=== PATIENT | female | born 1950 | race Caucasian/White ===

== ENCOUNTER → 2016-10-17 | Outpatient (CLI) | payer OTHER ==
[~2016-10-17] MED LIST: ACYC-56 PO; ASPI81TA28 PO; ATV5X PO; CHOL2000 PO; HYDR-5688 PO; IBUP600T44 PO; LEVAAER2 INH; LEVO125T5 PO; MECL1TAB42 PO; MOME50SP5; MVC20 PO; NYSCR30 TOP; OMEP40CA41 PO; ONDA4TAB10 PO; SCPTP EXT; TPRSR/25 PO; TRC145 PO; [UNRECOGNIZED DRUG - CODE] PO
[2016-10-17 13:50] LABS: ALT/SGPT 35 U/L (12-78); BLOOD UREA NITROGEN 24 mg/dl (7-18); BUN/CREATININE RATIO 25.6 (10-20); CALCIUM 9.4 mg/dl (8.5-10.1); CARBON DIOXIDE 26 mmol/L (21-32); CHLORIDE 109 mmol/L (98-107); CREATININE 0.94 mg/dl (0.60-1.20); GLUCOSE 99 mg/dl (70-99); POTASSIUM 3.8 mmol/L (3.5-5.1); SODIUM 143 mmol/L (136-145)
[2016-10-17 14:00] LABS: CHOLESTEROL 187 mg/dl (0-200); CHOLESTEROL/HDL RATIO 3.6; HDL CHOLESTEROL 52 mg/dl; LDL CHOLESTEROL CALCULATED 105 mg/dl; THYROID STIMULATING HORMONE 0.242 uIu/ml (0.300-4.500); TRIGLYCERIDES 149 mg/dl (0-150); VERY LOW DENSITY LIPOPROT CALC 30 mg/dl
== END | disposition home or self-care (01) ==
LOC: C.LAB 11:33
PROVIDERS: ATTEND Family Medicine
DX: E78.1 Pure hyperglyceridemia (principal); E78.5 Hyperlipidemia, unspecified; E03.9 Hypothyroidism, unspecified

== ENCOUNTER → 2016-10-17 | Outpatient (CLI) | payer OTHER | END | disposition home or self-care (01) | LOC: C.PATHSPEC 17:51 | PROVIDERS: ATTEND Family Medicine | DX: L82.1 Other seborrheic keratosis (principal); B07.9 Viral wart, unspecified ==

== ENCOUNTER → 2016-10-24 | Outpatient (CLI) | payer OTHER | END | disposition home or self-care (01) | LOC: C.LABSPEC 16:14 | PROVIDERS: ATTEND Dermatology | DX: L08.9 Local infection of the skin and subcutaneous tissue, unspecified (principal) ==

== ENCOUNTER → 2016-11-11 | Outpatient (CLI) | payer OTHER ==
--- NOTE | 2016-12-01 06:53 | CODING QUERY NO DIAGNOSIS ---
TREATMENT RENDERED WITHOUT A DIAGNOSIS To promote full compliance with coding requirements relating to patient care, physician participation is requested in all cases of certified medical coder uncertainty. Please assist us with providing a diagnosis/symptom for the test(s) below: A diagnosis/symptom was not documented on your Order. A valid diagnosis/symptom is required to bill all insurances. Please remember that we are unable to code a diagnosis of rule out, probable, possible, questionable, or suspected. Tests that require a diagnosis: * RIGHT EAR SHAVE BIOPSY DIAGNOSIS: Provider Signature: Date: Thank you Sierra Durham [employer] Once completed, please kindly fax back to [phone] For questions please call [phone]
== END | disposition home or self-care (01) ==
LOC: C.PATHSPEC 15:06
PROVIDERS: ATTEND Dermatology
DX: Z01.89 Encounter for other specified special examinations (principal)

== ENCOUNTER → 2017-01-16 | Outpatient (CLI) | payer OTHER ==
[~2017-01-16] MED LIST changes: -ACYC-56 PO; +ACYC1CAP9 PO; +LEVO125T4 PO; -LEVO125T5 PO
--- NOTE | 2017-01-17 13:31 | MAMMOGRAPHY REPORT ---
BILATERAL DIGITAL SCREENING MAMMOGRAM WITH CAD: 01/16/2017 CLINICAL HISTORY: Routine screening. TECHNIQUE: Current study was also evaluated with a Computer Aided Detection (CAD) system. Bilateral CC and MLO views were obtained. COMPARISON: Comparison is made to exams dated: 01/12/2016 mammogram, 01/07/2014 mammogram, 01/08/2015 m ammogram, 01/04/2013 mammogram, 01/03/2012 mammogram, and 04/26/2010 mammogram - [facility] enter. BREAST COMPOSITION: The tissue of both breasts is heterogeneously dense, which may obscure small mas ses. FINDINGS: No suspicious masses, calcifications, or areas of architectural distortion are noted in ei ther breast. There has been no significant interval change compared to prior exams. Scattered bilater al benign-appearing calcifications are not significantly changed. Asymmetry in the right superior br east middle depth on the MLO view is similar to multiple prior exams including the 2009 exam, and con sidered benign given long-term stability. IMPRESSION: ACR BI-RADS CATEGORY 2: BENIGN There is no mammographic evidence of malignancy. A 1 year screening mammogram is recommended. The pa tient will receive written notification of the results. Approximately 10% of breast cancers are not detected with mammography. A negative mammographic report should not delay biopsy if a clinically suggestive mass is present. Caitlyn Guerra M.D. /:01/16/2017 16:21:37 Needle Loom Setter: Edvin COATES)([place]), [facility] letter sent: Normal 1/2 BI-RADS Code: ACR BI-RADS Category 2: Benign
== END | disposition home or self-care (01) ==
LOC: C.MAMM 13:28
PROVIDERS: ATTEND Family Medicine
DX: Z12.31 Encounter for screening mammogram for malignant neoplasm of breast (principal)

== ENCOUNTER → 2017-01-26 | Outpatient (CLI) | payer OTHER | END | disposition home or self-care (01) | LOC: C.LAB 11:27 | PROVIDERS: ATTEND Family Medicine | DX: E03.9 Hypothyroidism, unspecified (principal) ==

== ENCOUNTER → 2017-04-03 | Outpatient (CLI) | payer OTHER ==
[2017-04-03 10:52] LABS: ALT/SGPT 29 U/L (12-78); BLOOD UREA NITROGEN 25 mg/dl (7-18); BUN/CREATININE RATIO 22.4 (10-20); CARBON DIOXIDE 24 mmol/L (21-32); CHLORIDE 110 mmol/L (98-107); CHOLESTEROL 170 mg/dl (0-200); GLUCOSE 106 mg/dl (70-99); POTASSIUM 4.2 mmol/L (3.5-5.1); SODIUM 141 mmol/L (136-145)
[2017-04-03 10:55] LABS: CHOLESTEROL/HDL RATIO 3.2; HDL CHOLESTEROL 53 mg/dl; LDL CHOLESTEROL CALCULATED 95 mg/dl; TRIGLYCERIDES 111 mg/dl (0-150); VERY LOW DENSITY LIPOPROT CALC 22 mg/dl
== END | disposition home or self-care (01) ==
LOC: C.LAB1850 09:23
PROVIDERS: ATTEND Family Medicine
DX: E78.1 Pure hyperglyceridemia (principal); R73.03 Prediabetes

== ENCOUNTER → 2017-11-16 | Outpatient (CLI) | payer BC, OTHER ==
[~2017-11-16] MED LIST changes: +ACYC-56 PO; -ACYC1CAP9 PO; -LEVO125T4 PO; +LEVO125T5 PO
== END | disposition home or self-care (01) ==
LOC: C.LAB 12:02
PROVIDERS: ATTEND Family Medicine Hospice and Palliative Medicine
DX: Z00.00 Encounter for general adult medical examination without abnormal findings (principal); E03.9 Hypothyroidism, unspecified

== ENCOUNTER → 2018-01-22 | Outpatient (CLI) | payer OTHER, BC ==
--- NOTE | 2018-01-22 15:42 | MAMMOGRAPHY REPORT ---
BILATERAL DIGITAL SCREENING MAMMOGRAM TOMOSYNTHESIS WITH CAD: 01/22/2018 CLINICAL HISTORY: Routine screening. TECHNIQUE: The study was acquired using full field digital technology and interpreted from soft copy. Breast tomosynthesis in addition to standard 2D mammography was performed. Current study was also ev aluated with a Computer Aided Detection (CAD) system. COMPARISON: Comparison is made to exams dated: 01/16/2017 mammogram, 01/12/2016 mammogram, 01/08/2015 m ammogram, 01/07/2014 mammogram, 01/04/2013 mammogram, and 01/03/2012 mammogram - [facility] enter. BREAST COMPOSITION: The tissue of both breasts is heterogeneously dense, which may obscure small mass es. FINDINGS: The parenchymal pattern is similar to prior mammograms. There are mild to moderate vascular calcific ations in the breasts. A few scattered benign rim calcifications as well. No developing mass, archi tectural distortion or cluster of suspicious microcalcifications is seen in either breast. IMPRESSION: ACR BI-RADS CATEGORY 2: BENIGN There is no mammographic evidence of malignancy. A 1 year screening mammogram is recommended.( 019) The patient will receive written notification of the results. Some breast cancers are not detected with mammography. A negative mammographic report should not shawn y biopsy if a clinically suggestive mass is present. Shikha Marks M.D. ay/:01/22/2018 15:22:34 Lease Administration Supervisor: RT Kyleigh(Brittaney)([place]), [facility] letter sent: Normal 1/2 BI-RADS Code: ACR BI-RADS Category 2: Benign
== END | disposition home or self-care (01) ==
LOC: C.MAMM 10:12
PROVIDERS: ATTEND Family Medicine
DX: Z12.31 Encounter for screening mammogram for malignant neoplasm of breast (principal)

== ENCOUNTER 2022-10-21 15:35 | Inpatient (IN) ==
--- NOTE | 2022-10-21 16:08 | Emergency Department Note ---
ED Provider Note History of Present Illness Chief Complaint: Flank Pain Stated Complaint: PAIN LOWER BACK,KIDNEY STONES Time Seen by Provider: 10/21/22 16:07 This is a 72-year-old female who presents to the emergency department with lower back pain. This initially began about 1 week ago and is progressively getting worse. She describes the pain as in the center and on both sides of the lower back. It is relatively constant in nature but exacerbated anytime she changes position. It does not radiate anywhere. She attributes this to possibly taking care of her grandson who has cerebral palsy, has been bending and lifting him a lot lately. It may have gotten worse about 3 days when she accidentally tripped and fell and landed on her left side. She did not hit her head or lose consciousness with that fall. Did not seem to injure anything else. Today she visited her chiropractor because the pain was worsening and her chiro practor "worked on her" for quite some time which seemed to make the pain worse. She tried taking some Tylenol for her symptoms without any relief. She is unable to take any ibuprofen due to apixaban use. She was a little concerned because her urine has been slightly dark intermittently over the past few days. This seems to improve when she drinks enough fluids. Not accompanied by any dysuria or gross hematuria She denies any chest pain, shortness of breath, abdominal pain, nausea, vomiting, numbness tingling or weakness in her lower extremities, saddle anesthesia, fever, chills, urinary retention, or loss of bowel or bladder function. No significant history of chronic back pain. Does have a history of kidney stones Home Medications Medication Instructions Recorded Confirmed Type docusate sodium 50 mg capsule 50 mg PO DAILY 07/16/19 10/21/22 History (Colace Clear) polyethylene glycol 3350 17 gram 17 gm PO DAILY PRN Constipation 07/16/19 10/21/22 History oral powder packet (Miralax) cyclobenzaprine 5 mg tablet 5 mg PO TID PRN Muscle Spasm #30 07/20/20 10/21/22 Rx tabs acyclovir 200 mg capsule 200 mg PO 5XD PRN OUTBREAKS #30 01/14/21 10/21/22 Rx caps calcium carbonate 600 mg calcium 600 mg PO BID 04/15/21 10/21/22 History (1,500 mg) tablet (Calcium) cholecalciferol (vitamin D3) 10 10 mcg PO BID 04/15/21 10/21/22 History mcg (400 unit) capsule levalbuterol tartrate 45 See Rx Instructions inhalation 07/27/21 10/21/22 Rx mcg/actuation aerosol inhaler .COMPLEX PRN shortness of breath (Xopenex HFA) or wheezing #15 grams fluticasone propionate 50 2 spray intranasal DAILY #48 grams 01/12/22 10/21/22 Rx mcg/actuation nasal spray,suspension meclizine 25 mg tablet 25 mg PO Q6H PRN Dizziness #90 tabs 03/01/22 10/21/22 Rx ondansetron 4 mg disintegrating 4 - 8 mg translingual BID PRN 03/01/22 10/21/22 Rx tablet nausea and vomiting #90 tabs apixaban 5 mg tablet (Eliquis) 5 mg PO BID #60 tabs 08/22/22 10/21/22 Rx metoprolol succinate 25 mg 25 mg PO HS #90 tabs 08/22/22 10/21/22 Rx tablet,extended release 24 hr olopatadine 0.1 % eye drops 1 drp ophthalmic (eye) DAILY #5 mL 09/08/22 10/21/22 Rx atorvastatin 80 mg tablet 80 mg PO HS #90 tabs 10/03/22 10/21/22 Rx omeprazole 40 mg capsule,delayed 40 mg PO QAM #90 caps 10/14/22 10/21/22 Rx release lorazepam 0.5 mg tablet 0.5 mg PO TID PRN anxiety #90 tabs 10/19/22 10/21/22 Rx diclofenac sodium 1 % topical gel 4 g topical QID PRN Pain 10/21/22 10/21/22 History levothyroxine 100 mcg tablet 100 mcg PO DAILYBB 10/21/22 10/21/22 History nystatin 100,000 unit/gram topical 1 applic topical BID PRN ABD FOLDS 10/21/22 10/21/22 History cream NEEDED Allergies Allergy/AdvReac Type Severity Reaction Status Date / Time bee venom protein (honey bee) Allergy Severe THROAT Verified 10/21/22 21:23 CLOSES/HIVES Iodinated Contrast Media Allergy Intermediate HIVES Verified 10/21/22 21:23 aspirin AdvReac Unknown CONTRAINDICATED Verified 10/21/22 21:23 WITH BLOOD THINNERS ibuprofen AdvReac Unknown CONTRAINDICATED Verified 10/21/22 21:23 WITH BLOOD THINNERS Past Med/Surg History Medical History A-fib Adverse anesthesia outcome Hard time waking up Anxiety Bee sting reaction Chest pain (05/18/14) Cholelithiasis Conductive hearing loss of both ears Gastroesophageal reflux disease (10/29/12) History of cerebrovascular accident Hyperlipidemia (10/29/12) Hypothyroidism (10/29/12) Laryngitis, chronic Learning disability Left knee pain Pharyngitis, chronic Post traumatic stress disorder (PTSD) Prediabetes Stroke SVT (supraventricular tachycardia) Surgical History History of colonoscopy History of hysterectomy History of surgery Vaginal Reconstruction - 2012 History of tonsillectomy No pertinent past surgical history Tympanic tube insertion 2019. Family History Father Colorectal cancer Coronary heart disease Prostate cancer Cancer Aunt Diabetes Mother Myocardial infarction Coronary heart disease Stroke Daughter Crohn's disease Asthma Son Allergic rhinitis Family/Other Anemia Child Other Family history non-contributory Denies family history of Ovarian cancer Breast cancer Social History Smoking Status: Former smoker Smoking End Date: 30 years ago; Second Hand Exposure: No; Do You Dip or Chew Tobacco: No; Hx Alcohol Use: No Hx Substance Use: No Preferred Language: Tajik Communication Ability: Effective Communication Ability Comment: poor reading ability Visual Impairment: No Limitations Hearing Ability: Normal Director [employer] Required: No Beliefs That Will Affect Care: None marital status: Current Living Situation: Spouse current occupational status: retired How many Children do You have: 3 Other Information That Helps Us Care for You: No Feels Safe at Home: Yes Safety Concerns: Feels Safe At This Time Childhood Exposure to Second-Hand Smoke: Yes Diet: regular caffeine: Yes (Soda - occasional) during the past year weight has: remained stable Dental Care, Regularly: No Physical Activity Frequency: Does not Exercise Seatbelt Use: always Sunscreen Use: Yes Assistive Devices: Glasses Physical Exam Vital Signs Vital Signs - 24 hr 10/21/22 15:45 10/21/22 16:01 10/21/22 20:05 Temperature 97.5 F L Temperature Source Temporal Artery Scan Pulse Rate 74 75 76 Respiratory Rate 18 Respiratory Effort / Characteristics Non-Labored Spontaneous Respiratory Depth Normal Blood Pressure 142/80 H Blood Pressure Mean 100 Blood Pressure Position Sitting Pulse Oximetry 97 Oxygen Delivery Method Room Air Sepsis Recent Fever Within 48 Hours No Sepsis New/Unexplained Change in Mental Status No Sepsis Action Taken by Nursing No Action Required CONSTITUTIONAL: Well developed, well nourished, mildly uncomfortable appearing, otherwise resting comfortably on stretcher HEAD: Normocephalic, atraumatic. NECK: Full active range of motion. No spinous process tenderness RESPIRATORY: Breathing unlabored and symmetric. Lungs clear to auscultation bilaterally. No wheeze, rales, or rhonchi. CARDIOVASCULAR: Regular rate and rhythm. No murmurs, rubs, or gallops. DP pulses 2+ bilaterally. ABDOMEN: Normal bowel sounds. Soft, nontender, no peritonitis. No masses. MUSCULOSKELETAL: Moves bilateral upper extremities at all joints without pain or difficulty. Pelvis stable, nontender. Able to actively perform a straight leg raise bilaterally, less so on the left than the right which is baseline per patient. Back exam: No obvious deformities or skin color changes. There is no tenderness in the thoracic spine. There is midline tenderness in the lumbar spine as well as bilateral lumbar paraspinal musculature. There is pain elicited in the low back with any changes in position. Moves all toes bilaterally. SKIN: [place], warm, dry. NEUROLOGIC: Awake, alert, oriented. Gaze is conjugate. Face symmetric. Strength 5+ in bilateral lower extremities with plantarflexion, dorsiflexion, EHL extension. No sensory deficits in bilateral toes. Patellar reflexes 2+ bilaterally.. Course Administered Medications Acetaminophen (Acetaminophen 500 Mg Tab) 1,000 mg PO Q8 [facility] Stop: 11/20/22 21:59 Last Admin: 10/21/22 22:48 Dose: 1,000 mg Documented By: P Apixaban (Apixaban 5 Mg Tablet) 5 mg PO BID EMA Stop: 11/20/22 21:47 Last Admin: 10/21/22 22:32 Dose: Not Given Documented By: P Atorvastatin Calcium (Atorvastatin 40 Mg Tab) 80 mg PO HS [facility] Stop: 11/20/22 21:47 Last Admin: 10/21/22 22:48 Dose: 80 mg Documented By: SHARRI Diclofenac Sodium (Diclofenac Sod 1% Gel 100 Gm Tube) 4 gm EXT QID EMA; Protocol Stop: 11/20/22 21:47 Last Admin: 10/21/22 22:48 Dose: 4 gm Documented By: SHARRI Sodium Chloride (Nss 1000ml) 500 mls @ 80 mls/hr IV .Q6H15M EMA Stop: 10/22/22 04:59 Last Admin: 10/21/22 22:47 Dose: 80 mls/hr Documented By: SHARRI Metoprolol Succinate (Metoprolol Succ 25mg Ext Rel Tab) 25 mg PO HS EMA Stop: 11/20/22 21:47 Last Admin: 10/21/22 22:32 Dose: Not Given Documented By: SHARRI Mismauraaneous (Remove Lidoderm Patch) 1 each N/A DAILY@2100 EMA Stop: 11/20/22 23:58 Last Admin: 10/21/22 22:49 Dose: 1 each Documented By: SHARRI Ondansetron HCl (Ondansetron Inj 2 Mg/Ml 2 Ml Vial) 4 mg IV Q6H PRN PRN Reason: Nausea And Vomiting Stop: 11/20/22 20:50 Last Admin: 10/21/22 21:07 Dose: 4 mg Documented By: KRYSTIN Discontinued Medications Acetaminophen (Acetaminophen 325 Mg Tab) 650 mg PO NOW STA Stop: 10/21/22 16:25 Last Admin: 10/21/22 16:35 Dose: 650 mg Documented By: [id number] Sodium Chloride (Nss) 500 mls @ 999 mls/hr IV .Q31M ONE Stop: 10/21/22 17:59 Last Infusion: 10/21/22 19:06 Dose: 0 mls/hr Documented By: Admin: 10/21/22 17:36 Dose: 999 mls/hr Documented By: [id number] Lidocaine (Lidocaine 5% 1 Patch) 2 patch TD NOW STA Stop: 10/21/22 16:25 Last Admin: 10/21/22 16:36 Dose: 2 patch Documented By: [id number] Miscellaneous (Remove Lidoderm Patch) 1 each N/A DAILY@2100 EMA Stop: 11/20/22 20:59 Last Admin: 10/21/22 20:43 Dose: Not Given Documented By: KRYSTIN Morphine Sulfate (Morphine Sulfate 4 Mg/Ml 1 Ml Carp\\Vial) 4 mg IV NOW STA Stop: 10/21/22 18:19 Last Admin: 10/21/22 18:28 Dose: 4 mg Documented By: DANNY Potassium Chloride (Potassium Chloride Crtab 20 Meq Tabcr) 40 meq PO NOW STA Stop: 10/21/22 17:52 Last Admin: 10/21/22 19:05 Dose: 40 meq Documented By: KRYSTIN Medical Decision Making Differential Diagnosis Muscle strain, myofascial low back pain, renal colic, radicular pain, cauda equina syndrome, transverse myelitis, hematoma, vascular rupture or aneurysm, fracture, dislocation, subluxation, vascular, malignancy, UTI, pyelonephritis, Medical Records Attestation: I reviewed the patient's medical records. Laboratory Data 10/21/22 Unknown 10/21/22 Unknown Lab Results 10/21/22 10/21/22 Range/Units 16:40 19:06 Urine Color Dark Yellow Urine Appearance Clear (Clear) Urine pH 5.0 (4.5-7.5) Ur Specific [place] 1.022 (1.000-1.030) Urine Protein Negative (Negative) Urine Glucose (UA) Negative (Negative) Urine Ketones Trace H (Negative) Urine Blood Negative (Negative) Urine Nitrite Negative (Negative) Urine Bilirubin Negative (Negative) Urine Urobilinogen Negative (Negative) Ur Leukocyte Esterase Trace H (Negative) Urine WBC (Auto) 1-5 (0-5) /hpf Urine RBC (Auto) 5-10 H (0-4) /hpf U Hyaline Cast (Auto) 5-10 H (0-5) /lpf U Epithel Cells (Auto) >30 H (0-5) /lpf Urine Bacteria (Auto) Negative (Negative) SARS-CoV-2, RNA, NAAT NEGATIVE (NEGATIVE) Imaging Data Radiologist's Impression: Abdomen/Pelvis CT 10/21/22 16:24 CT SCAN OF THE ABDOMEN AND PELVIS WITHOUT IV CONTRAST CLINICAL HISTORY: Low back pain. Recent falls. COMPARISON STUDY: Abdominal CT dated 11/25/2020. TECHNIQUE: CT scan of the abdomen and pelvis is performed from the lung bases to the proximal femora. Images are reviewed in the axial, sagittal, and coronal planes. IV contrast was not administered for this examination. A dose lowering technique was utilized adhering to the principles of ALARA. CT DOSE: 398.60 mGy.cm FINDINGS: Lung bases: The heart is normal in size and without pericardial effusion. The lung bases are clear noting bibasilar scarring/atelectasis. There is a tiny hiatal hernia. Liver: The unenhanced liver is normal in size, contour, and attenuation. There is no intrahepatic biliary ductal dilatation. Gallbladder: There are calcified gallstones with no CT evidence of acute cholecystitis. Spleen: Normal in size and attenuation. Pancreas: Unremarkable. Adrenal glands: Unremarkable. Kidneys: The unenhanced kidneys are normal in size and without hydronephrosis. There is a 4 mm nonobstructing calculus in the right lower pole. No left renal calculi are identified and there is no ureteral stone. There is no evidence of contour deforming renal mass lesion. Abdominal vasculature: The abdominal aorta is normal in course and caliber. Bowel: There is no bowel obstruction. The appendix is well-visualized and normal. Peritoneum: There is no intraperitoneal free air or abdominal ascites. There is a fat-containing umbilical hernia. Lymphadenopathy: None. Pelvic viscera: The bladder is normal as visualized. The uterus is surgically absent. No adnexal lesion is seen. Skeletal structures: The skeletal structures are osteopenic. There is a minimal acute appearing superior endplate compression fracture of L1 with faint paravertebral edema. No retropulsed fragments identified. No lytic or blastic lesions are seen. IMPRESSION: 1. There is a minimal acute appearing superior endplate compression fracture of L1. Correlate for point tenderness. 2. No acute infectious or inflammatory findings are identified in the abdomen or pelvis. 3. Cholelithiasis. 4. Right-sided nephrolithiasis. 5. Additional findings as above. ACT 112: Negative or not required by law. Electronically signed by: Danie Salazar M.D. 10/21/2022 4:56 PM MDM Narrative This is a 72-year-old female who presents to the emergency department with 1 week of progressive back pain as well as a mechanical fall that occurred 3 days ago. Symptoms worsened after seeing her chiropractor today. See above for further details. On exam she does appear to be in pain especially when changing positions. When she is at rest she is improved. There is tenderness in the midline lumbar spine as well as the paraspinal musculature in the lumbar region. She is neurovascularly intact with strong DP pulses as well as 2+ patellar reflexes. Patient was initially treated with Tylenol and 2 Lidoderm patches. This was not sufficient at controlling her pain so she was given a dose of morphine. IV fluids administered. Labs show no leukocytosis. Mild hypokalemia at 3.2, repleted with 40 mEq of potassium chloride. Nonspecific elevation of AST at 44 which could be related to bone. Urine with no evidence of infection, but it does appear to be infected. Given the patient's age, worsening symptoms, history of stones, and on blood th inners, a CT of the abdomen and pelvis was obtained without contrast given her history of allergy to contrast. This demonstrated a minimal acute appearing superior endplate compression fracture of L1. This is quite possibly the source of her symptoms. I attempted to ambulate the patient however she was still in a severe amount of pain. Given her fall risk and persistent pain, hesitant to discharge home with prescription pain medication. I discussed the case with the resident with the hospitalist group who agrees to admit the patient. Case was discussed with ED attending Dr. Cabrera who is agreeable with this plan. Impression Closed compression fracture of body of L1 vertebra Discharge Plan Visit Data Chief Complaint: Flank Pain Stated Complaint: PAIN LOWER BACK,KIDNEY STONES ED Provider: Brody Cabrera ED Midlevel Provider: Miky Mortensen Discharge Problem: Closed compression fracture of body of L1 vertebra Patient Disposition: Admitted As Inpatient Condition: Fair Discharge Instructions Interventions: ED Discharge Assessment Last Done: 10/21/22 21:31
[2022-10-21] MEDS ORDERED: LIDOCAINE 5% 1 PATCH TD STA (16:24)
[2022-10-21] MEDS ORDERED: ACETAMINOPHEN 325 MG TAB PO STA (16:24)
[2022-10-21 16:44] LABS: Basophils # (auto) 0.04 K/uL (0-0.2); Basophils % (auto) 0.5 %; Eosinophils # (auto) 0.21 K/uL (0-0.50); Eosinophils % (auto) 2.7 %; Hematocrit (blood only) 36.7 % (37.0-47.0); Immature Granulocytes # (auto) 0.03 K/uL (0.01-0.20); Immature Granulocytes % (auto) 0.4 %; Lymphocytes # (auto) 2.81 K/uL (1.2-3.4); Lymphocytes % (auto) 36.4 %; Mean Corpuscular Hemoglobin 33.4 pg (25.0-34.0); Mean Corpuscular Hgb Conc 35.4 g/dL (32.0-36.0); Mean Corpuscular Volume 94.3 fL (80.0-100.0); Mean Platelet Volume 9.7 fL (9.4-12.4); Monocytes # (auto) 0.67 K/uL (0.11-0.59); Monocytes % (auto) 8.7 %; Neutrophils # (auto) 3.95 K/uL (1.40-6.50); Neutrophils % (auto) 51.3 %; Platelet Count 224 K/uL (130-400); RDW Coefficient of Variation 12.7 % (11.5-14.5); RDW Standard Deviation 43.8 fL (36.4-46.3); Red Blood Count 3.89 M/uL (4.20-5.40); White Blood Count 7.71 K/ul (4.8-10.8)
[2022-10-21 16:48] LABS: Albumin Globulin Ratio 1.8 (0.9-2); Albumin Level 4.6 gm/dl (3.4-5.0); BUN Creatinine Ratio 16.5 (10-20); Bilirubin,Total 0.8 mg/dl (0.2-1.0); Calcium 9.7 mg/dl (8.6-10.3); Creatinine Clr Calc Pharmacy 67.3 ml/min; Est GFR (African American) 86.7 ml/min; Est GFR (Non-African American) 74.8 ml/min; Globulin 2.6 gm/dl (2.5-4.0); Potassium 3.2 mmol/L (3.5-5.1); Total Protein 7.2 gm/dl (6.0-8.3)
--- NOTE | 2022-10-21 16:58 | CT Scan Report ---
CT SCAN OF THE ABDOMEN AND PELVIS WITHOUT IV CONTRAST CLINICAL HISTORY: Low back pain. Recent falls. COMPARISON STUDY: Abdominal CT dated 11/25/2020. TECHNIQUE: CT scan of the abdomen and pelvis is performed from the lung bases to the proximal femora. Images are reviewed in the axial, sagittal, and coronal planes. IV contrast was not administered for this examination. A dose lowering technique was utilized adhering to the principles of ALARA. CT DOSE: 398.60 mGy.cm FINDINGS: Lung bases: The heart is normal in size and without pericardial effusion. The lung bases are clear no ting bibasilar scarring/atelectasis. There is a tiny hiatal hernia. Liver: The unenhanced liver is normal in size, contour, and attenuation. There is no intrahepatic jeffery iary ductal dilatation. Gallbladder: There are calcified gallstones with no CT evidence of acute cholecystitis. Spleen: Normal in size and attenuation. Pancreas: Unremarkable. Adrenal glands: Unremarkable. Kidneys: The unenhanced kidneys are normal in size and without hydronephrosis. There is a 4 mm nonobs tructing calculus in the right lower pole. No left renal calculi are identified and there is no urete ral stone. There is no evidence of contour deforming renal mass lesion. Abdominal vasculature: The abdominal aorta is normal in course and caliber. Bowel: There is no bowel obstruction. The appendix is well-visualized and normal. Peritoneum: There is no intraperitoneal free air or abdominal ascites. There is a fat-containing umbi lical hernia. Lymphadenopathy: None. Pelvic viscera: The bladder is normal as visualized. The uterus is surgically absent. No adnexal lesi on is seen. Skeletal structures: The skeletal structures are osteopenic. There is a minimal acute appearing super ior endplate compression fracture of L1 with faint paravertebral edema. No retropulsed fragments iden tified. No lytic or blastic lesions are seen. IMPRESSION: 1. There is a minimal acute appearing superior endplate compression fracture of L1. Correlate for poi nt tenderness. 2. No acute infectious or inflammatory findings are identified in the abdomen or pelvis. 3. Cholelithiasis. 4. Right-sided nephrolithiasis. 5. Additional findings as above. ACT 112: Negative or not required by law. Electronically signed by: Danie Salazar M.D. 10/21/2022 4:56 PM
[2022-10-21] MEDS ORDERED: SODIUM CHLORIDE 0.9% 500 ML IV ONE (17:29)
[2022-10-21 17:33] LABS: Appearance Urine Clear (Clear); Bacteria Urine Automated Negative (Negative); Bilirubin Urine Negative (Negative); Blood Urine Negative (Negative); Color Urine Dark Yellow; Epithelial Cell Urine Auto >30 /lpf (0-5); Glucose Urine UA Negative (Negative); Ketones Urine Trace (Negative); Leukocyte Esterase Urine Trace (Negative); Nitrite Urine Negative (Negative); Protein Urine Negative (Negative); Specific Gravity Urine 1.022 (1.000-1.030); Urobilinogen Urine Negative (Negative)
[2022-10-21] MEDS ORDERED: POTASSIUM CHLORIDE CRTAB 20 MEQ TABCR PO STA (17:51)
[2022-10-21] MEDS ORDERED: MoRPHine SULFATE 4 MG/ML 1 ML CARP\\VIAL IV STA (18:18)
--- NOTE | 2022-10-21 20:18 | History & Physical Report ---
Date of Service October 21, 2022 Assessment & Plan (1) Lower back pain: Plan: -CTAP with minimal acute superior endplate compression L1 fracture -Pain control- Tylenol 1000 mg q8h, lidocaine patch, morphine PRN, Voltaren PRN, Flexeril PRN -Orthopedics consulted -PT/OT evaluations ordered -Fall precautions -Does take vitamin D supplementation as outpatient (2) A-fib: Plan: -Currently in sinus rhythm, rate-controlled -Continue metoprolol -Continue apixaban (3) Prediabetes: Plan: -A1C 6.0% in 07/2022 -Monitor BSGs (4) Hypothyroidism: Plan: -Continue levothyroxine (5) Hyperlipidemia: Plan: -Continue atorvastatin (6) Gastroesophageal reflux disease: Plan: -Continue omeprazole (7) Constipation: Plan: -Bowel regimen ordered (8) Kidney stone: Plan: -Nephrolithiasis noted on CTAP, no obstruction at present Plan FENGI: Heart-healthy Code status: Full DVT ppx: Eliquis Isolation: None Dispo: Medical/surgical History of Present Illness Chief Complaint: Low back pain Primary Care Provider: Marianne Hurd MD Pt is 72 yo F with PMH of pAF, anxiety, nephrolithiasis, HLD, hypothyroidism, GERD presenting with low back pain. Pt states for past few days she has been trying to help her 180 lb grandson who has cerebral palsy with ADLs. This involves lifting and carrying him which she reports has caused significant back strain. Earlier today she fell to the ground and landed on her L side, did not strike her head. Her lower back pain has been severe and limiting her movement. She was brought to ER afterward. Pt arrived to ER hemodynamically stable. Initial evaluation with unremarkable CBC, K 3.2, CTAP w/ minimal acute L1 compression fracture, cholelithiasis and R nephrolithiasis. Pt given KCl, Tylenol, morphine 4 mg, lidocaine and NSS 500 cc bolus in ER. At present, pt reports the pain medication has helped reduce her pain slightly. She still reports lower back pain but denies any numbness, weakness, fever, dyspnea, chest pain. Allergies Allergy/AdvReac Type Severity Reaction Status Date / Time bee venom protein (honey bee) Allergy Severe THROAT Verified 10/21/22 21:23 CLOSES/HIVES Iodinated Contrast Media Allergy Intermediate HIVES Verified 10/21/22 21:23 aspirin AdvReac Unknown CONTRAINDICATED Verified 10/21/22 21:23 WITH BLOOD THINNERS ibuprofen AdvReac Unknown CONTRAINDICATED Verified 10/21/22 21:23 WITH BLOOD THINNERS Home Medications Medication Instructions Recorded Confirmed Type docusate sodium 50 mg capsule 50 mg PO DAILY 07/16/19 10/21/22 History (Colace Clear) polyethylene glycol 3350 17 gram 17 gm PO DAILY PRN Constipation 07/16/19 10/21/22 History oral powder packet (Miralax) cyclobenzaprine 5 mg tablet 5 mg PO TID PRN Muscle Spasm #30 07/20/20 10/21/22 Rx tabs acyclovir 200 mg capsule 200 mg PO 5XD PRN OUTBREAKS #30 01/14/21 10/21/22 Rx caps calcium carbonate 600 mg calcium 600 mg PO BID 04/15/21 10/21/22 History (1,500 mg) tablet (Calcium) cholecalciferol (vitamin D3) 10 10 mcg PO BID 04/15/21 10/21/22 History mcg (400 unit) capsule levalbuterol tartrate 45 See Rx Instructions inhalation 07/27/21 10/21/22 Rx mcg/actuation aerosol inhaler .COMPLEX PRN shortness of breath (Xopenex HFA) or wheezing #15 grams fluticasone propionate 50 2 spray intranasal DAILY #48 grams 01/12/22 10/21/22 Rx mcg/actuation nasal spray,suspension meclizine 25 mg tablet 25 mg PO Q6H PRN Dizziness #90 tabs 03/01/22 10/21/22 Rx ondansetron 4 mg disintegrating 4 - 8 mg translingual BID PRN 03/01/22 10/21/22 Rx tablet nausea and vomiting #90 tabs apixaban 5 mg tablet (Eliquis) 5 mg PO BID #60 tabs 08/22/22 10/21/22 Rx metoprolol succinate 25 mg 25 mg PO HS #90 tabs 08/22/22 10/21/22 Rx tablet,extended release 24 hr olopatadine 0.1 % eye drops 1 drp ophthalmic (eye) DAILY #5 mL 09/08/22 10/21/22 Rx atorvastatin 80 mg tablet 80 mg PO HS #90 tabs 10/03/22 10/21/22 Rx omeprazole 40 mg capsule,delayed 40 mg PO QAM #90 caps 10/14/22 10/21/22 Rx release lorazepam 0.5 mg tablet 0.5 mg PO TID PRN anxiety #90 tabs 10/19/22 10/21/22 Rx diclofenac sodium 1 % topical gel 4 g topical QID PRN Pain 10/21/22 10/21/22 History levothyroxine 100 mcg tablet 100 mcg PO DAILYBB 10/21/22 10/21/22 History nystatin 100,000 unit/gram topical 1 applic topical BID PRN ABD FOLDS 10/21/22 10/21/22 History cream NEEDED Past Med/Surg History Medical History A-fib Adverse anesthesia outcome Hard time waking up Anxiety Bee sting reaction Chest pain (05/18/14) Cholelithiasis Conductive hearing loss of both ears Gastroesophageal reflux disease (10/29/12) History of cerebrovascular accident Hyperlipidemia (10/29/12) Hypothyroidism (10/29/12) Laryngitis, chronic Learning disability Left knee pain Pharyngitis, chronic Post traumatic stress disorder (PTSD) Prediabetes Stroke SVT (supraventricular tachycardia) Surgical History History of colonoscopy History of hysterectomy History of surgery Vaginal Reconstruction - 2012 History of tonsillectomy No pertinent past surgical history Tympanic tube insertion 2019. Family History Father Colorectal cancer Coronary heart disease Prostate cancer Cancer Aunt Diabetes Mother Myocardial infarction Coronary heart disease Stroke Daughter Crohn's disease Asthma Son Allergic rhinitis Family/Other Anemia Child Other Family history non-contributory Denies family history of Ovarian cancer Breast cancer Social History Smoking Status: Former smoker Smoking End Date: 30 years ago; Second Hand Exposure: No; Do You Dip or Chew Tobacco: No; Hx Alcohol Use: No Hx Substance Use: No Preferred Language: Beninese Communication Ability: Effective Communication Ability Comment: poor reading ability Visual Impairment: No Limitations Hearing Ability: Normal Artificial Flowers Dyer Required: No Beliefs That Will Affect Care: None marital status: Current Living Situation: Spouse current occupational status: retired How many Children do You have: 3 Other Information That Helps Us Care for You: No Feels Safe at Home: Yes Safety Concerns: Feels Safe At This Time Childhood Exposure to Second-Hand Smoke: Yes Diet: regular caffeine: Yes (Soda - occasional) during the past year weight has: remained stable Dental Care, Regularly: No Physical Activity Frequency: Does not Exercise Seatbelt Use: always Sunscreen Use: Yes Assistive Devices: Glasses Review of Systems Review of Systems: Per HPI/Subjective Physical Exam Physical Exam: General: well-appearing, no acute distress HEENT: PERRL, EOMI, conjunctivae clear without injection, anicteric sclerae, moist mucous membranes, clear oropharynx without exudate or erythema Neck: supple, trachea midline, no thyromegaly, no JVD, no cervical lymphadenopathy CV: RRR, normal S1 and S2, no murmurs Resp: CTAB, no increased work of breathing, no crackles or wheezes Abd: Soft, nontender, nondistended, no guarding or rebound, no hepatosplenomegaly MSK: Normal bulk of all four extremities, point tenderness of back at level of L1 Neuro: AOx3, no focal motor or sensory deficits, gait not assessed Skin: no rashes or lesions, warm and dry Ext: no LE peripheral edema or erythema, capillary refill <2s in all four extremities, 2+ LE peripheral pulses b/l Results & Data Results & Data Vital Signs (Past 12 Hours) Vital Signs Temp Pulse Resp BP Pulse Ox O2 Del Method 10/21/22 20:05 76 10/21/22 16:01 75 10/21/22 15:45 36.4 C L 74 18 142/80 H 97 Room Air Supervising Physician Co-Signing Physician Notes Attending addendum: I have physically seen this patient, have supervised the medical residents activities, and agree with the H&P unless as otherwise noted. Assessment and Plan: Acute superior endplate L1 compression fracture- Pain control with Tylenol, lidocaine patch, morphine, Voltaren and Flexeril as noted PT/OT consults Consult orthopedic spine surgery Atrial fibrillation/hypertension- Continue metoprolol and apixaban Prediabetes- Placed on Accu-Cheks with NovoLog SSI Hyperlipidemia- Continue atorvastatin 80 mg daily Check a fasting lipid panel Hypothyroidism- Continue levothyroxine GERD- Change omeprazole to pantoprazole per formulary interchange Remaining orders and notations as noted Resident Activity Tracking Resident Involvement: Resident Care Provided Care Provided: Adult [facility] Medicine
[2022-10-21] MEDS: ONDANSETRON INJ 2 MG/ML 2 ML VIAL IV PRN (21:07)
[2022-10-21] MEDS ORDERED: CYCLOBENZAPRINE HCL 5 MG TAB PO PRN (21:48)
[2022-10-21] MEDS ORDERED: POLYETHYLENE (MIRALAX) 17 GM PACK PO PRN (21:48)
[2022-10-21] MEDS ORDERED: LEVALBUTEROL TARTRATE 15 GM HFA.AER.AD INH PRN (21:48)
[2022-10-21] MEDS: APIXABAN 5 MG TABLET PO SCH (22:32)
[2022-10-21] MEDS: METOPROLOL SUCC 25MG EXT REL TAB PO SCH (22:32)
[2022-10-21] MEDS ORDERED: SODIUM CHLORIDE 0.9% 1000ML 500 ML IV SCH (22:45)
[2022-10-21] MEDS: ATORVASTATIN 40 MG TAB PO SCH (22:48)
[2022-10-21] MEDS: ACETAMINOPHEN 500 MG TAB PO SCH (22:48)
[2022-10-21] MEDS: DICLOFENAC SOD 1% GEL 100 GM TUBE EXT SCH (22:48)
[2022-10-22] MEDS: MoRPHine SULFATE 2 MG/ML CARP IV PRN ×3 (02:01→21:02)
[2022-10-22] MEDS: LORazepam 0.5 MG TAB PO PRN ×2 (05:56→21:02)
[2022-10-22] MEDS: ACETAMINOPHEN 500 MG TAB PO SCH ×3 (05:56→21:06)
[2022-10-22] MEDS: LEVOTHYROXINE SODIUM 100 MCG TABLET PO SCH (05:57)
[2022-10-22 06:29] LABS: BUN Creatinine Ratio 14.8 (10-20); Calcium 8.7 mg/dl (8.6-10.3); Creatinine Clr Calc Pharmacy 96.2 ml/min; Est GFR (African American) 109.3 ml/min; Est GFR (Non-African American) 94.3 ml/min; Potassium 3.6 mmol/L (3.5-5.1)
--- NOTE | 2022-10-22 07:30 | Hospitalist Progress Note ---
Date of Service October 22, 2022 Assessment & Plan (1) Lower back pain: Plan: Lower Back Pain- Lumbosacral strain, Compression Fracture L1 -CTAP with minimal acute superior endplate compression L1 fracture, unknown age of injury -Pain control- Tylenol 1000 mg q8h, lidocaine patch, morphine PRN, Voltaren PRN, Flexeril PRN -PT/OT evaluations ordered, encourage ambulation to prevent deconditioning and worsening pain -DEXA Scan from 1+ year prior confirms osteoporosis, patient will need follow up for consideration of bisphosphonate in the future. Currently on Vitamin D supplementation as outpatient -Given patient's description of current pain distribution, greater suspicion that the pain is related to lumbosacral strain/piriformis pathology -Will give Magnesium Sulfate 4g to help address muscle spasms -Considering unknown timeframe for compression fracture, will defer orthopedics consult as surgical intervention likely not warranted at this time Atrial Fibrillation -Currently in sinus rhythm, rate-controlled -Continue metoprolol -Continue apixaban Prediabetes -A1C 6.0% in 07/2022 -Monitor BSGs Hypothyroidism -Continue levothyroxine Hyperlipidemia -Continue atorvastatin GERD -Continue omeprazole Constipation -Bowel regimen ordered Kidney Stone -Nephrolithiasis noted on CTAP, no obstruction at present FENGI: Heart-healthy Code status: Full DVT ppx: Eliquis Dispo: Medical/surgical (2) A-fib: (3) Prediabetes: (4) Hypothyroidism: (5) Hyperlipidemia: (6) Gastroesophageal reflux disease: (7) Constipation: (8) Kidney stone: Admission and Anticipated Discharge Date Admission Date: October 21, 2022 Supervising Physician Co-Signing Physician Notes I personally examined the patient and verified all [place] points of history and exam, discussed case, and agree with decision making with Dr Isabel. Back painbut lower. Not at all in her L1 region. Relates it is really purely in a lumbosacral area. Notes that prior to coming to the hospital she went to it sounds like probably her chiropractor and worked on piriformis region musculaturebut unfortunately she continued to worsen anyway. Vitals noted, in general she is awake and alert pleasant but appears uncomfortable. Breathing unlabored no accessory muscle use good effort. Musculoskeletal/osteopathic she has absolutely no spinous process tenderness, she is very tender right piriformis region musculature high tone, tender, decreased range of motionLAS, tissue texture improved some, patient tolerated well. Back painto be clear I do not believe her L1 compression fracture contributes to her pain at all. Seems to be biomechanical/driven by piriformis. Sounds like her chiropractor was working on the right area, but unfortunately patient worsened anyway, which sometimes is the case. OMT as above. Magnesium, Valium as a muscle relaxant, scheduled Tylenol, increase range of motion as possible. Somatic dysfunction of pelvic regionOMT as above L1 compression fracture/osteoporosisoutpatient management. Ronel Wright is 72 year-old female with PMH of atrial fibrillation, anxiety, nephrolithiasis, HLD, hypothyroidism, GERD presenting with low back pain. She had ongoing lower back pain for over a week- helps with ADL's of her 180lb grandson with cerebral palsy- but yesterday fell and landed on her left side. Due to the significant pain and patient on anticoagulation, decision was made for admission. 10/22: Patient seen and examined at bedside. She states she is still in a lot of pain. During encounter, patient noted 8/10 intensity of pain. She states that ambulating causes excruciating pain and sitting/laying in bed is also very painful. She states is feels like urinating "takes longer than usual" and is also a bit constipated. Denies numbness, tingling, weakness in her lower extremities. Review of Systems Review of Systems: As per HPI Physical Exam Constitutional: WD/WN, vitals as above Eyes: Anicteric sclerae ENMT: External ears and nose normal. Moist mucous membranes. Respiratory: normal respiratory effort, lungs clear to auscultation Cardiovascular: RRR, no murmur, no edema Gastrointestinal (Abdomen): Soft, nontender, nondistended. +Bowel sounds Musculoskeletal: Tenderness to palpation of lumbosacral paraspinal musculature. Skin: no rashes, warm and dry Psychiatric: A+Ox3, euthymic affect Results & Data Results & Data Vital Signs (Past 12 Hours) Vital Signs Temp Pulse Pulse Resp BP Pulse Ox O2 Del Method 10/21/22 21:52 36.4 C 65 96/59 L 92 Room Air 10/21/22 21:00 69 16 124/61 93 Room Air 10/21/22 20:05 76 Resident Activity Tracking Resident Involvement: Resident Care Provided Care Provided: Adult Hospital Medicine
[2022-10-22] MEDS: PANTOprazole 40 MG TAB PO SCH (08:34)
[2022-10-22] MEDS: APIXABAN 5 MG TABLET PO SCH ×2 (08:34→21:04)
[2022-10-22] MEDS: DOCUSATE SODIUM SYRUP 100 MG/10 ML UDC PO SCH (08:34)
[2022-10-22] MEDS: LIDOCAINE 5% 1 PATCH TD SCH (08:35)
[2022-10-22] MEDS: DICLOFENAC SOD 1% GEL 100 GM TUBE EXT SCH ×4 (08:36→21:03)
[2022-10-22] MEDS: ONDANSETRON INJ 2 MG/ML 2 ML VIAL IV PRN (11:37)
[2022-10-22] MEDS: MAGNESIUM SULFATE / D5W 1 GM/100 ML BAG IV SCH ×4 (16:21→23:20)
[2022-10-22] MEDS ORDERED: diazePAM 2 MG TABLET PO PRN (18:45)
--- NOTE | 2022-10-22 18:53 | Hospitalist Progress Note ---
Date of Service October 22, 2022 Assessment & Plan Admission and Anticipated Discharge Date Admission Date: October 21, 2022 Results & Data Results & Data Vital Signs (Past 12 Hours) Vital Signs Temp Pulse Resp BP Pulse Ox O2 Del Method 10/22/22 15:06 98.2 F 70 16 103/61 96 Room Air 10/22/22 07:26 97.9 F 64 18 125/73 96 Room Air PG Care Time/CCT Total # of Minutes Spent Total Time Spent with Patient: Total time spent is greater than 50% in coordination of care (as documented) at patient's floor/unit and/or counseling patient: Coding Level of Care Code None Diagnoses CPT Codes Musculoskeletal - Musculoskeletal: [address] Tr 1-2 Body regions ([id number])
--- NOTE | 2022-10-22 18:53 | Billing Data ---
Date of Service October 22, 2022 Coding Level of Care Code 29857 SUB INP/OBS CARE MIN
[2022-10-22] MEDS ORDERED: PANTOprazole 40 MG TAB PO PRN (21:00)
[2022-10-22] MEDS: diazePAM 5 MG TABLET PO SCH (21:02)
[2022-10-22] MEDS: METOPROLOL SUCC 25MG EXT REL TAB PO SCH (21:05)
[2022-10-22] MEDS: ATORVASTATIN 40 MG TAB PO SCH (21:05)
[2022-10-23] MEDS: ACETAMINOPHEN 500 MG TAB PO SCH ×3 (05:55→21:00)
[2022-10-23] MEDS: LEVOTHYROXINE SODIUM 100 MCG TABLET PO SCH (05:55)
--- NOTE | 2022-10-23 06:07 | Billing Data ---
Date of Service October 23, 2022 Coding Level of Care Code 24530 INT INP/OBS CARE
--- NOTE | 2022-10-23 07:32 | Hospitalist Progress Note ---
Date of Service October 23, 2022 Assessment & Plan (1) Lower back pain: Plan: Lower Back Pain- Lumbosacral strain, Compression Fracture L1 -CTAP with minimal acute superior endplate compression L1 fracture, unknown age of injury -PT/OT evaluations ordered, encourage ambulation to prevent deconditioning and worsening pain -DEXA Scan from 1+ year prior confirms osteoporosis, patient will need follow up for consideration of bisphosphonate in the future. Currently on Vitamin D supplementation as outpatient -Given patient's description of current pain distribution, greater suspicion that the pain is related to lumbosacral strain/piriformis pathology -Continue Magnesium, Valium which seemed to provide pain relief -Continue PT/OT -If pain under better control, hope to discharge tomorrow -Considering unknown timeframe for compression fracture, will defer orthopedics consult as surgical intervention likely not warranted at this time Atrial Fibrillation -Currently in sinus rhythm, rate-controlled -Continue metoprolol -Continue apixaban Prediabetes -A1C 6.0% in 07/2022 -Monitor BSGs Hypothyroidism -Continue levothyroxine Hyperlipidemia -Continue atorvastatin GERD -Continue omeprazole Constipation -Bowel regimen ordered Kidney Stone -Nephrolithiasis noted on CTAP, no obstruction at present FENGI: Heart-healthy Code status: Full DVT ppx: Eliquis Dispo: Medical/surgical (2) A-fib: (3) Prediabetes: (4) Hypothyroidism: (5) Hyperlipidemia: (6) Gastroesophageal reflux disease: (7) Constipation: (8) Kidney stone: Admission and Anticipated Discharge Date Admission Date: October 21, 2022 Supervising Physician Co-Signing Physician Notes I personally examined the patient and verified all [place] points of history and exam, discussed case, and agree with decision making with Dr Isabel. ongoing low back pain, not really any better. Continues to be lower back. Vitals noted, in general she is awake and alert but appears to be uncomfortable. Breathing unlabored no accessory muscle use good effort. Left greater than right piriformis region pelvic musculature high tone, tender, decreased range of motionLAS/inhibitory pressuretissue texture improved some with good fasciculation response as well. Patient tolerated well. Skin without rashes pallor or icterus. Back painto be clear I do not believe her L1 compression fracture contributes to her pain at all. Seems to be biomechanical/driven by piriformis. Sounds like her chiropractor was working on the right area, but unfortunately patient worsened anyway, which sometimes is the case. OMT as above. Previously given IV magnesium, Valium as a muscle relaxant, scheduled Tylenol, additional Toradol plus Valium now, increase range of motion as possible. Somatic dysfunction of pelvic regionOMT as above L1 compression fracture/osteoporosisoutpatient management for bone health Anticoagulated on Eliquis for DVT prophylaxis Currently PT recommending rehab, which may be necessary if her pain resolves slowly, but given how much her limited mobility is probably due to pain causing restrictionsif her pain starts to improve, may be able to go home. Ronel Wright is 72 year-old female with PMH of atrial fibrillation, anxiety, nephrolithiasis, HLD, hypothyroidism, GERD presenting with low back pain. She had ongoing lower back pain for over a week- helps with ADL's of her 180lb grandson with cerebral palsy- but fell and landed on her left side. Due to the significant pain and patient on anticoagulation, decision was made for admission. 10/23: Patient seen and examined at bedside. No acute events overnight. She states that the Valium and Magnesium did seem to help some with the pain, she was able to sleep well. This morning she was feeling well so she decided to try some stretches/exercise but that made the pain worse- it is currently a 8/10 in intensity. Denies lower extremity numbness or tingling. Denies chest pain, shortness of breath. States that PT/OT worked with her some yesterday. Review of Systems Review of Systems: As per HPI Physical Exam Constitutional: WD/WN, vitals as above Eyes: Anicteric sclera ENMT: External ears and nose normal. Moist mucous membranes. Respiratory: normal respiratory effort, lungs clear to auscultation Cardiovascular: RRR, no murmur, no edema Gastrointestinal (Abdomen): Abdomen soft, nondistended. Musculoskeletal: Pain greater L>R lumbar lumbosacral region. No midline tenderness. Skin: no rashes, warm and dry Psychiatric: A+Ox3, euthymic affect Results & Data Results & Data Vital Signs (Past 12 Hours) Vital Signs Temp Pulse Resp BP Pulse Ox O2 Del Method 10/22/22 21:47 36.7 C 65 15 101/63 94 Room Air 10/22/22 21:12 73 97/60 L 91 Room Air Resident Activity Tracking Resident Involvement: Resident Care Provided Care Provided: Adult Hospital Medicine
[2022-10-23] MEDS: DICLOFENAC SOD 1% GEL 100 GM TUBE EXT SCH ×4 (08:06→20:08)
[2022-10-23] MEDS: APIXABAN 5 MG TABLET PO SCH ×2 (08:06→20:09)
[2022-10-23] MEDS: DOCUSATE SODIUM SYRUP 100 MG/10 ML UDC PO SCH (08:06)
[2022-10-23] MEDS: LIDOCAINE 5% 1 PATCH TD SCH (08:06)
[2022-10-23] MEDS: PANTOprazole 40 MG TAB PO SCH (08:07)
[2022-10-23] MEDS: MAGNESIUM SULFATE / D5W 1 GM/100 ML BAG IV SCH ×4 (10:48→17:43)
[2022-10-23] MEDS: MoRPHine SULFATE 2 MG/ML CARP IV PRN (10:55)
[2022-10-23] MEDS ORDERED: KETOROLAC TROMETHAMINE 15 MG/ML VIAL IV ONE (17:00)
[2022-10-23] MEDS ORDERED: diazePAM 2 MG TABLET PO ONE (17:00)
--- NOTE | 2022-10-23 17:04 | Hospitalist Progress Note ---
Date of Service October 23, 2022 Assessment & Plan Admission and Anticipated Discharge Date Admission Date: October 21, 2022 Results & Data Results & Data Vital Signs (Past 12 Hours) Vital Signs Temp Pulse Resp BP Pulse Ox O2 Del Method 10/23/22 14:26 97.7 F 69 16 101/67 96 Room Air 10/23/22 11:07 97.7 F 72 18 110/63 92 Room Air 10/23/22 07:51 98.1 F 70 17 107/66 90 Room Air PG Care Time/CCT Total # of Minutes Spent Total Time Spent with Patient: Total time spent is greater than 50% in coordination of care (as documented) at patient's floor/unit and/or counseling patient: Coding Level of Care Code None Diagnoses CPT Codes Musculoskeletal - Musculoskeletal: 48094 [address] Tr 1-2 Body regions ([id number])
--- NOTE | 2022-10-23 17:04 | Billing Data ---
Date of Service October 23, 2022 Coding Level of Care Code 19938 SUB INP/OBS CARE
[2022-10-23] MEDS: METOPROLOL SUCC 25MG EXT REL TAB PO SCH (20:07)
[2022-10-23] MEDS: ATORVASTATIN 40 MG TAB PO SCH (20:09)
[2022-10-23] MEDS: diazePAM 5 MG TABLET PO SCH (20:13)
[2022-10-24] MEDS: MoRPHine SULFATE 2 MG/ML CARP IV PRN ×2 (01:35→09:58)
[2022-10-24] MEDS: ACETAMINOPHEN 500 MG TAB PO SCH ×3 (05:47→21:56)
[2022-10-24] MEDS: LEVOTHYROXINE SODIUM 100 MCG TABLET PO SCH (05:47)
[2022-10-24 06:26] LABS: BUN Creatinine Ratio 19.2 (10-20); Creatinine Clr Calc Pharmacy 99.9 ml/min; Est GFR (African American) 110.6 ml/min; Est GFR (Non-African American) 95.5 ml/min; Potassium 3.7 mmol/L (3.5-5.1)
[2022-10-24 06:37] LABS: Basophils # (auto) 0.01 K/uL (0-0.2); Basophils % (auto) 0.2 %; Eosinophils # (auto) 0.14 K/uL (0-0.50); Eosinophils % (auto) 2.2 %; Hematocrit (blood only) 33.7 % (37.0-47.0); Hemoglobin 11.7 g/dl (12.0-16.0); Immature Granulocytes # (auto) 0.02 K/uL (0.01-0.20); Immature Granulocytes % (auto) 0.3 %; Lymphocytes # (auto) 1.64 K/uL (1.2-3.4); Lymphocytes % (auto) 25.5 %; Mean Corpuscular Hemoglobin 33.2 pg (25.0-34.0); Mean Corpuscular Hgb Conc 34.7 g/dL (32.0-36.0); Mean Corpuscular Volume 95.7 fL (80.0-100.0); Mean Platelet Volume 9.7 fL (9.4-12.4); Monocytes # (auto) 0.56 K/uL (0.11-0.59); Monocytes % (auto) 8.7 %; Neutrophils # (auto) 4.05 K/uL (1.40-6.50); Neutrophils % (auto) 63.1 %; Platelet Count 194 K/uL (130-400); RDW Standard Deviation 45.4 fL (36.4-46.3); Red Blood Count 3.52 M/uL (4.20-5.40); White Blood Count 6.42 K/ul (4.8-10.8)
[2022-10-24] MEDS: APIXABAN 5 MG TABLET PO SCH ×2 (08:21→20:34)
[2022-10-24] MEDS: DICLOFENAC SOD 1% GEL 100 GM TUBE EXT SCH ×4 (08:21→20:35)
[2022-10-24] MEDS: DOCUSATE SODIUM SYRUP 100 MG/10 ML UDC PO SCH (08:21)
[2022-10-24] MEDS: PANTOprazole 40 MG TAB PO SCH (08:21)
[2022-10-24] MEDS: LIDOCAINE 5% 1 PATCH TD SCH (08:22)
[2022-10-24] MEDS ORDERED: POLYETHYLENE (MIRALAX) 17 GM PACK PO PRN (10:36)
[2022-10-24] MEDS: oxyCODONE HCL IR 5 MG TAB (IMMEDIATE RELEASE) PO SCH ×2 (11:09→18:51)
--- NOTE | 2022-10-24 14:22 | Hospitalist Progress Note ---
Date of Service October 24, 2022 Assessment & Plan (1) Lower back pain: Plan: Pt is a 72 yo female with PMH of afib, anxiety, GERD, HLD, hypothyroidism, and CVA presenting due to increased back pain after a fall while transferring her nephew with CP. L1 compression fracture - CTAP with minimal acute superior endplate compression L1 fracture - PT/OT evaluations ordered, encourage ambulation to prevent deconditioning and worsening pain - given pinpoint tenderness, suspicion that pain is related to acute compression fx after fall with secondary muscular spasm - as pt's pain is still not under control, will d/c valium and magnesium (d/t inefficacy) and begin oxycodone 5 mg q8hr with IV morphine 2 mg q6hr for breakthrough pain - as last DEXA scan showed osteoporosis (2020), would recommend outpatient bisphosphonate therapy; pt already taking vitamin D supplementation - Add heat pad. Constipation - increased risk in the setting of opioid use for pain control - docusate ordered daily and miralax PRN Atrial fibrillation - Continue metoprolol, eliquis Impaired fasting glucose - A1C 6.0% in 07/2022 Hypothyroidism - Continue levothyroxine Hyperlipidemia - Continue atorvastatin GERD - Continue omeprazole Nephrolithiasis - pain does not appear to correlate with nephrolithiasis - incidental on CTAP, no obstruction at present FEN/GI: Heart-healthy, low fat Code status: Full DVT ppx: home eliquis Dispo: med/surg, d/c home (with home health?) once pain control is adequate (2) A-fib: (3) Prediabetes: (4) Hypothyroidism: (5) Hyperlipidemia: (6) Gastroesophageal reflux disease: (7) Constipation: (8) Kidney stone: Admission and Anticipated Discharge Date Admission Date: October 21, 2022 Supervising Physician Co-Signing Physician Notes Resident Physician Supervision Note: I independently interviewed and examined the patient and verified the [place] history and physical, reviewed labs and image studies and agree with resident findings and care plan. Subjective Pt seen at bedside this AM. She still have 10/10 low back pain. She states this hasn't gotten better since she arrived. She feels best when laying down and the pain increases when she sits/stands. She denies pain radiating into her legs. Review of Systems Review of Systems: As per HPI Physical Exam Physical Exam: Constitutional: well appearing, no acute distress HEENT: normocephalic, no conjunctival injection CV: RRR, no murmur, no LE edema Respiratory: CTA bilaterally. No rhonchi, wheezes, or crackles. No increased work of breathing MSK: no gross deformities noted, pinpoint pain upon palpation of her L1 spine in association with tight left paraspinal muscles Skin: warm, dry, no rashes Neuro: alert, oriented, no FND noted Psych: mood and affect congruent Results & Data Results & Data Vital Signs (Past 12 Hours) Vital Signs Temp Pulse Resp BP Pulse Ox O2 Del Method 10/24/22 07:41 36.7 C 67 18 116/73 90 Room Air Resident Activity Tracking Resident Involvement: Resident Care Provided Care Provided: Adult Hospital Medicine
[2022-10-24] MEDS: METOPROLOL SUCC 25MG EXT REL TAB PO SCH (20:34)
[2022-10-24] MEDS: ATORVASTATIN 40 MG TAB PO SCH (20:34)
[2022-10-24] MEDS: LORazepam 0.5 MG TAB PO PRN (23:01)
[2022-10-25] MEDS: oxyCODONE HCL IR 5 MG TAB (IMMEDIATE RELEASE) PO SCH ×5 (02:27→21:39)
[2022-10-25] MEDS: ACETAMINOPHEN 500 MG TAB PO SCH ×3 (05:47→21:39)
[2022-10-25] MEDS: LEVOTHYROXINE SODIUM 100 MCG TABLET PO SCH (05:48)
[2022-10-25] MEDS: MoRPHine SULFATE 2 MG/ML CARP IV PRN (05:49)
[2022-10-25] MEDS: ONDANSETRON INJ 2 MG/ML 2 ML VIAL IV PRN (06:45)
[2022-10-25 07:40] LABS: Basophils # (auto) 0.04 K/uL (0-0.2); Basophils % (auto) 0.5 %; Eosinophils # (auto) 0.12 K/uL (0-0.50); Eosinophils % (auto) 1.6 %; Hemoglobin 11.8 g/dl (12.0-16.0); Immature Granulocytes # (auto) 0.02 K/uL (0.01-0.20); Immature Granulocytes % (auto) 0.3 %; Lymphocytes # (auto) 1.77 K/uL (1.2-3.4); Lymphocytes % (auto) 24.3 %; Mean Corpuscular Hemoglobin 33.1 pg (25.0-34.0); Mean Corpuscular Hgb Conc 34.7 g/dL (32.0-36.0); Mean Corpuscular Volume 95.2 fL (80.0-100.0); Mean Platelet Volume 9.8 fL (9.4-12.4); Monocytes % (auto) 9.6 %; Neutrophils # (auto) 4.63 K/uL (1.40-6.50); Neutrophils % (auto) 63.7 %; Platelet Count 200 K/uL (130-400); RDW Coefficient of Variation 13.2 % (11.5-14.5); RDW Standard Deviation 45.8 fL (36.4-46.3); Red Blood Count 3.57 M/uL (4.20-5.40); White Blood Count 7.28 K/ul (4.8-10.8)
--- NOTE | 2022-10-25 07:55 | Hospitalist Progress Note ---
Date of Service October 25, 2022 Assessment & Plan (1) Lower back pain: Plan: Pt is a 72 yo female with PMH of afib, anxiety, GERD, HLD, hypothyroidism, and CVA presenting due to increased back pain after a fall while transferring her nephew with CP. Age-related osteoporotic fracture of L1 vertebrae - CTAP with minimal acute superior endplate compression L1 fracture - PT/OT evaluations ordered, encourage ambulation to prevent deconditioning and worsening pain - given pinpoint tenderness, suspicion that pain is related to acute compression fx after fall with secondary muscular spasm - as pt's pain is still not under control, increased oxycodone 5 mg from q8hr to q4hr with IV morphine 2 mg q6hr for breakthrough pain - continue heat pad PRN - as last DEXA scan showed osteoporosis (2020), would recommend outpatient bisphosphonate therapy; pt already taking vitamin D supplementation Constipation - increased risk in the setting of opioid use for pain control - docusate BID and miralax PRN Atrial fibrillation - Continue metoprolol, eliquis Impaired fasting glucose - A1C 6.0% in 07/2022 Hypothyroidism - Continue levothyroxine Hyperlipidemia - Continue atorvastatin GERD - Continue omeprazole Nephrolithiasis - pain does not appear to correlate with nephrolithiasis - incidental on CTAP, no obstruction at present FEN/GI: Heart-healthy, low fat Code status: Full DVT ppx: home eliquis Dispo: med/surg, pt is interested in possible rehab. Will have PT/OT evaluate and make recommendations. (2) A-fib: (3) Prediabetes: (4) Hypothyroidism: (5) Hyperlipidemia: (6) Gastroesophageal reflux disease: (7) Constipation: (8) Kidney stone: Admission and Anticipated Discharge Date Admission Date: October 21, 2022 Supervising Physician Co-Signing Physician Notes Resident Physician Supervision Note: I independently interviewed and examined the patient and verified the [place] history and physical, reviewed labs and image studies and agree with resident findings and care plan. Subjective Pt seen at bedside this AM. She states that her pain has not been significantly helped from the change in her pain meds yesterday. She does enjoy her heating pad. She has essentially no pain while laying down but her pain comes when she sits up and/or walks around. No new symptoms. Review of Systems Review of Systems: As per HPI Physical Exam Physical Exam: Constitutional: well appearing, no acute distress HEENT: normocephalic, no conjunctival injection CV: irregularly irregular rhythm, regular rate, no murmur, no LE edema Respiratory: CTA bilaterally. No rhonchi, wheezes, or crackles. No increased work of breathing MSK: no gross deformities noted, pinpoint tenderness at level of L1 with associated paraspinal muscular pain bilaterally Skin: warm, dry, no rashes Neuro: alert, oriented, no FND noted Psych: mood and affect congruent Results & Data Results & Data Vital Signs (Past 12 Hours) Vital Signs Temp Pulse Resp BP Pulse Ox O2 Del Method 10/25/22 07:30 36.7 C 68 18 105/56 L 93 Room Air 10/24/22 20:32 36.9 C 78 16 106/61 94 Room Air Resident Activity Tracking Resident Involvement: Resident Care Provided Care Provided: Adult Hospital Medicine
[2022-10-25 08:08] LABS: BUN Creatinine Ratio 22.4 (10-20); Calcium 8.5 mg/dl (8.6-10.3); Creatinine Clr Calc Pharmacy 89.6 ml/min; Est GFR (African American) 106.7 ml/min; Est GFR (Non-African American) 92.1 ml/min; Potassium 3.9 mmol/L (3.5-5.1)
[2022-10-25] MEDS: APIXABAN 5 MG TABLET PO SCH ×2 (08:41→20:42)
[2022-10-25] MEDS: LIDOCAINE 5% 1 PATCH TD SCH (08:41)
[2022-10-25] MEDS: PANTOprazole 40 MG TAB PO SCH (08:41)
[2022-10-25] MEDS: DICLOFENAC SOD 1% GEL 100 GM TUBE EXT SCH ×4 (08:42→20:45)
[2022-10-25] MEDS ORDERED: DOCUSATE SODIUM 100 MG CAP PO SCH (09:00)
[2022-10-25] MEDS ORDERED: DOCUSATE SODIUM 100 MG CAP PO ONE (10:30)
[2022-10-25] MEDS: CALCITONIN SALMON NA 200 IU/AC 3.7 ML BTL SCH (12:00)
[2022-10-25] MEDS: LORazepam 0.5 MG TAB PO PRN (14:39)
--- NOTE | 2022-10-25 15:52 | Orthopedic Consultation ---
Date of Service October 25, 2022 History of Present Illness Reason for Consultation: Back pain Requesting Physician: . Attending Physician: Melissa Hummel MD Patient was admitted on October 21 with back pain. In talking with her, she had been doing some heavy lifting regarding her child who is 180 pounds, he has cerebral palsy and she had been doing a fair amount of lifting for about a week with increasing back pain. Patient notes pain in the mid and lower lumbar spine area, denies any lower extremity symptomatology, reports she has had some intermittent bouts of low back pain in the past but not as severe. She also had a fall but was unsure of the reasons why she fell, on the possibility that she might have renal calculi CT scan of the abdomen and pelvis was performed which revealed what appeared to be a superior endplate compression fracture of L1, indeterminate in terms of age. She continues to have a fair amount of pain though she was able to get out of bed to a chair today Exam reveals her to indicate pain in the mid and lumbosacral region, minimally tender to direct palpation on the spinous processes. Patient has intact strength for EHL, ankle plantar and dorsiflexion, right leg remaining motor exam was unremarkable outside of some limited pain on effort, left leg has decreased left knee extension secondary to prior fractures years before. No clonus. Review of CT scan of the abdomen and pelvis from 10/21/2022 was performed, this reveals a very minimal superior endplate compression fracture of L1, no other changes when compared to previous imaging studies. Impression: Low back pain with onset from last week, possibility of a superior endplate L1 compression fracture versus aggravation of disc degeneration. Plan: I talk with the patient, I recommend obtaining a lumbar MRI as the patient is having very slow progress relative to her mobilization. An MRI will potentially give us information as regarding the acuity of the fracture as it might have been already present and this could be something related to disc degeneration and/or bulging or protrusion. In the latter case, we do not necessarily have to use a brace, but if she does have an L1 compression fracture thoracolumbar brace may be helpful in reducing her symptoms and help with mobilization. Also recommend continuing with physical therapy for mobilization and adequate pain control, utilization of Toradol and a muscle relaxer can be helpful. Allergies Allergy/AdvReac Type Severity Reaction Status Date / Time bee venom protein (honey bee) Allergy Severe THROAT Verified 10/21/22 21:23 CLOSES/HIVES Iodinated Contrast Media Allergy Intermediate HIVES Verified 10/21/22 21:23 aspirin AdvReac Unknown CONTRAINDICATED Verified 10/21/22 21:23 WITH BLOOD THINNERS ibuprofen AdvReac Unknown CONTRAINDICATED Verified 10/21/22 21:23 WITH BLOOD THINNERS mushroom AdvReac Unknown Unknown Verified 10/24/22 10:02 pepper (genus Capsicum) AdvReac Unknown Unknown Verified 10/24/22 10:05 Home Medications Medication Instructions Recorded Confirmed Type docusate sodium 50 mg capsule 50 mg PO DAILY 07/16/19 10/21/22 History (Colace Clear) polyethylene glycol 3350 17 gram 17 gm PO DAILY PRN Constipation 07/16/19 10/21/22 History oral powder packet (Miralax) cyclobenzaprine 5 mg tablet 5 mg PO TID PRN Muscle Spasm #30 07/20/20 10/21/22 Rx tabs acyclovir 200 mg capsule 200 mg PO 5XD PRN OUTBREAKS #30 01/14/21 10/21/22 Rx caps calcium carbonate 600 mg calcium 600 mg PO BID 04/15/21 10/21/22 History (1,500 mg) tablet (Calcium) cholecalciferol (vitamin D3) 10 10 mcg PO BID 04/15/21 10/21/22 History mcg (400 unit) capsule levalbuterol tartrate 45 See Rx Instructions inhalation 07/27/21 10/21/22 Rx mcg/actuation aerosol inhaler .COMPLEX PRN shortness of breath (Xopenex HFA) or wheezing #15 grams fluticasone propionate 50 2 spray intranasal DAILY #48 grams 01/12/22 10/21/22 Rx mcg/actuation nasal spray,suspension meclizine 25 mg tablet 25 mg PO Q6H PRN Dizziness #90 tabs 03/01/22 10/21/22 Rx ondansetron 4 mg disintegrating 4 - 8 mg translingual BID PRN 03/01/22 10/21/22 Rx tablet nausea and vomiting #90 tabs apixaban 5 mg tablet (Eliquis) 5 mg PO BID #60 tabs 08/22/22 10/21/22 Rx metoprolol succinate 25 mg 25 mg PO HS #90 tabs 08/22/22 10/21/22 Rx tablet,extended release 24 hr olopatadine 0.1 % eye drops 1 drp ophthalmic (eye) DAILY #5 mL 09/08/22 10/21/22 Rx atorvastatin 80 mg tablet 80 mg PO HS #90 tabs 10/03/22 10/21/22 Rx omeprazole 40 mg capsule,delayed 40 mg PO QAM #90 caps 10/14/22 10/21/22 Rx release lorazepam 0.5 mg tablet 0.5 mg PO TID PRN anxiety #90 tabs 10/19/22 10/21/22 Rx diclofenac sodium 1 % topical gel 4 g topical QID PRN Pain 10/21/22 10/21/22 History levothyroxine 100 mcg tablet 100 mcg PO DAILYBB 10/21/22 10/21/22 History nystatin 100,000 unit/gram topical 1 applic topical BID PRN ABD FOLDS 10/21/22 10/21/22 History cream NEEDED Past Med/Surg History Medical History A-fib Adverse anesthesia outcome Hard time waking up Anxiety Bee sting reaction Chest pain (05/18/14) Cholelithiasis Conductive hearing loss of both ears Gastroesophageal reflux disease (10/29/12) History of cerebrovascular accident Hyperlipidemia (10/29/12) Hypothyroidism (10/29/12) Laryngitis, chronic Learning disability Left knee pain Pharyngitis, chronic Post traumatic stress disorder (PTSD) Prediabetes Stroke SVT (supraventricular tachycardia) Surgical History History of colonoscopy History of hysterectomy History of surgery Vaginal Reconstruction - 2012 History of tonsillectomy No pertinent past surgical history Tympanic tube insertion 2019. Family History Father Colorectal cancer Coronary heart disease Prostate cancer Cancer Aunt Diabetes Mother Myocardial infarction Coronary heart disease Stroke Daughter Crohn's disease Asthma Son Allergic rhinitis Family/Other Anemia Child Other Family history non-contributory Denies family history of Ovarian cancer Breast cancer Social History Smoking Status: Former smoker Smoking End Date: 30 years ago; Second Hand Exposure: No; Do You Dip or Chew Tobacco: No; Hx Alcohol Use: No Hx Substance Use: No Preferred Language: Uzbek Communication Ability: Effective Communication Ability Comment: poor reading ability Visual Impairment: No Limitations Hearing Ability: Normal Receiving Manager Required: No Beliefs That Will Affect Care: None marital status: Current Living Situation: Spouse current occupational status: retired How many Children do You have: 3 Other Information That Helps Us Care for You: No Feels Safe at Home: Yes Safety Concerns: Feels Safe At This Time Childhood Exposure to Second-Hand Smoke: Yes Diet: regular caffeine: Yes (Soda - occasional) during the past year weight has: remained stable Dental Care, Regularly: No Physical Activity Frequency: Does not Exercise Seatbelt Use: always Sunscreen Use: Yes Assistive Devices: None Review of Systems All systems reviewed & are unremarkable except as noted in HPI & below. Physical Exam . Results & Data Results & Data Laboratory Results . Diagnostic Findings . PG Care Time/CCT Total # of Minutes Spent Total Time Spent with Patient: Total time spent is greater than 50% in coordination of care (as documented) at patient's floor/unit and/or counseling patient: Coding Level of Care Code 95357 IN/OBS CONSULT LVL 3,45M Diagnoses
[2022-10-25] MEDS: ATORVASTATIN 40 MG TAB PO SCH (20:42)
[2022-10-25] MEDS: METOPROLOL SUCC 25MG EXT REL TAB PO SCH (20:42)
[2022-10-25] MEDS: DOCUSATE SODIUM 100 MG CAP PO SCH (20:43)
[2022-10-26] MEDS: oxyCODONE HCL IR 5 MG TAB (IMMEDIATE RELEASE) PO SCH ×6 (01:58→21:12)
[2022-10-26] MEDS: ACETAMINOPHEN 500 MG TAB PO SCH ×3 (05:59→21:20)
[2022-10-26] MEDS: LEVOTHYROXINE SODIUM 100 MCG TABLET PO SCH (06:00)
[2022-10-26 06:42] LABS: Hematocrit (blood only) 38.1 % (37.0-47.0); Hemoglobin 13.3 g/dl (12.0-16.0); Mean Corpuscular Hemoglobin 33.5 pg (25.0-34.0); Mean Corpuscular Hgb Conc 34.9 g/dL (32.0-36.0); Mean Platelet Volume 9.7 fL (9.4-12.4); Platelet Count 235 K/uL (130-400); RDW Coefficient of Variation 13.1 % (11.5-14.5); RDW Standard Deviation 45.7 fL (36.4-46.3); Red Blood Count 3.97 M/uL (4.20-5.40); White Blood Count 7.26 K/ul (4.8-10.8)
[2022-10-26 07:02] LABS: BUN Creatinine Ratio 29.5 (10-20); Calcium 9.3 mg/dl (8.6-10.3); Creatinine Clr Calc Pharmacy 85.1 ml/min; Est GFR (Non-African American) 90.6 ml/min; Potassium 4.2 mmol/L (3.5-5.1)
--- NOTE | 2022-10-26 07:38 | Hospitalist Progress Note ---
Date of Service October 26, 2022 Assessment & Plan (1) Lower back pain: Plan: Pt is a 72 yo female with PMH of afib, anxiety, GERD, HLD, hypothyroidism, and CVA presenting due to increased back pain after a fall while transferring her nephew with CP. Age-related osteoporotic fracture of L1 vertebrae - CTAP with minimal acute superior endplate compression L1 fracture - given pinpoint tenderness, suspicion that pain is related to acute compression fx after fall with secondary muscular spasm - continue with PT/OT; encourage ambulation/transferring from bed to chair to prevent deconditioning and worsening pain - per ortho, recommend lumbar MRI to discern if fracture acute or chronic and if this is comorbid disc degeneration/protrusion; results pending - continue pain control with oxycodone 5 mg from q4hr, heat pad PRN, and IV morphine 2 mg q6hr for breakthrough pain; as her pain seems to be improving, will hold off on addition of NSAIDs or muscle relaxers - as last DEXA scan showed osteoporosis (2020), would recommend outpatient bis phosphonate therapy; pt already taking vitamin D supplementation Constipation - increased risk in the setting of opioid use for pain control - docusate BID and miralax PRN Atrial fibrillation - Continue metoprolol, eliquis Impaired fasting glucose - A1C 6.0% in 07/2022 Hypothyroidism - Continue levothyroxine Hyperlipidemia - Continue atorvastatin GERD - Continue omeprazole Nephrolithiasis - pain does not appear to correlate with nephrolithiasis - incidental on CTAP, no obstruction at present FEN/GI: Heart-healthy, low fat Code status: Full DVT ppx: home eliquis Dispo: med/surg, PT recommending inpatient rehab upon d/c (2) A-fib: (3) Prediabetes: (4) Hypothyroidism: (5) Hyperlipidemia: (6) Gastroesophageal reflux disease: (7) Constipation: (8) Kidney stone: Admission and Anticipated Discharge Date Admission Date: October 21, 2022 Supervising Physician Co-Signing Physician Notes Resident Physician Supervision Note: I independently interviewed and examined the patient and verified the [place] history and physical, reviewed labs and image studies and agree with resident findings and care plan. Subjective Pt seen this AM. She states her pain is mildly better. She does ok with laying down and when she's sitting but her pain is the worst when transitioning from laying down to sitting. She also experiences muscle spasms at random times, one of which occurred while I was in the room. She has no new complaints. Denies chest pain, SOB (other than induced by the pain when she attempts to sit up), no leg pains. Review of Systems Review of Systems: As per HPI Physical Exam Physical Exam: Constitutional: well appearing, no acute distress HEENT: normocephalic, no conjunctival injection CV: RRR, no murmur, no LE edema Respiratory: CTA bilaterally. No rhonchi, wheezes, or crackles. No increased work of breathing MSK: no gross deformities noted, tight paraspinal musculature present in lumbar region Skin: warm, dry, no rashes Neuro: alert, oriented, no FND noted Psych: mood and affect congruent Results & Data Results & Data Vital Signs (Past 12 Hours) Vital Signs Temp Pulse Resp BP Pulse Ox O2 Del Method 10/25/22 20:39 37.0 C 79 16 107/68 94 Room Air Resident Activity Tracking Resident Involvement: Resident Care Provided Care Provided: Adult Hospital Medicine
[2022-10-26] MEDS: CALCITONIN SALMON NA 200 IU/AC 3.7 ML BTL SCH (08:20)
[2022-10-26] MEDS: APIXABAN 5 MG TABLET PO SCH ×2 (08:20→21:00)
[2022-10-26] MEDS: DICLOFENAC SOD 1% GEL 100 GM TUBE EXT SCH ×4 (08:21→21:00)
[2022-10-26] MEDS: LIDOCAINE 5% 1 PATCH TD SCH (08:21)
[2022-10-26] MEDS: DOCUSATE SODIUM 100 MG CAP PO SCH ×2 (08:22→21:01)
[2022-10-26] MEDS: PANTOprazole 40 MG TAB PO SCH (08:22)
[2022-10-26] MEDS: LORazepam 0.5 MG TAB PO PRN (15:53)
[2022-10-26] MEDS: ATORVASTATIN 40 MG TAB PO SCH (21:00)
[2022-10-26] MEDS: METOPROLOL SUCC 25MG EXT REL TAB PO SCH (21:01)
[2022-10-26] MEDS ORDERED: BACLOFEN 10 MG TAB PO ONE (21:38)
[2022-10-27] MEDS: oxyCODONE HCL IR 5 MG TAB (IMMEDIATE RELEASE) PO SCH ×5 (01:33→16:45)
[2022-10-27] MEDS: ACETAMINOPHEN 500 MG TAB PO SCH ×2 (05:49→13:36)
[2022-10-27] MEDS: LEVOTHYROXINE SODIUM 100 MCG TABLET PO SCH (05:50)
[2022-10-27] MEDS: LORazepam 0.5 MG TAB PO PRN ×2 (05:59→08:36)
[2022-10-27] MEDS: DOCUSATE SODIUM 100 MG CAP PO SCH (08:32)
[2022-10-27] MEDS: PANTOprazole 40 MG TAB PO SCH (08:32)
[2022-10-27] MEDS: APIXABAN 5 MG TABLET PO SCH (08:33)
[2022-10-27] MEDS: DICLOFENAC SOD 1% GEL 100 GM TUBE EXT SCH ×3 (08:34→16:46)
[2022-10-27] MEDS: CALCITONIN SALMON NA 200 IU/AC 3.7 ML BTL SCH (08:34)
[2022-10-27] MEDS: LIDOCAINE 5% 1 PATCH TD SCH (08:35)
[2022-10-27 08:57] LABS: BUN Creatinine Ratio 33.3 (10-20); Calcium 9.6 mg/dl (8.6-10.3); Creatinine Clr Calc Pharmacy 96.2 ml/min; Est GFR (African American) 109.3 ml/min; Est GFR (Non-African American) 94.3 ml/min; Potassium 4.3 mmol/L (3.5-5.1)
--- NOTE | 2022-10-27 09:05 | Magnetic Resonance Report ---
MRI OF THE LUMBAR SPINE WITHOUT CONTRAST CLINICAL HISTORY: L1 compression fx, determine acuity COMPARISON STUDY: CT of the abdomen and pelvis October 21, 2022 and November 25, 2020. TECHNIQUE: Utilizing a 1.5 Anaamria magnet and dedicated coil, multiplanar, multiecho imaging of the jose ar spine was performed without IV contrast. FINDINGS: For purposes of numbering on this exam, the L5-S1 disc space is assigned to axial image 13 of 32. Ali gnment of the lumbar spine is anatomic. Note is made of an L1 compression fracture. Vertebral body he ight loss has mildly increased since CT of October 21, 2022. There is 30% loss of vertebral body height . 3 mm of retropulsion at the level of the superior endplate has developed. There is marrow edema wit hin this fracture. This is acute appearing. No extension into the posterior elements is identified. N o additional lumbar spine fractures are present. There is no intracanalicular mass or fluid collectio n. Conus terminates at the L1-L2 level. There are gallstones within the gallbladder. L1-2: The central canal and neural foramen are patent. L2-3: The central canal and neural foramen are patent. L3-4: The central canal and neural foramen are patent. L4-5: The central canal and neural foramen are patent. There is mild facet arthrosis. L5-S1: Central canal and neural foramen are patent. There is mild facet arthrosis. IMPRESSION: 1. L1 compression fracture with 30% loss of vertebral body height which has increased since prior CT of October 21, 2022. Interval development of mild retropulsion without central central canal stenosis. This fracture is acute. 2. No additional lumbar spine fracture. 3. Mild multilevel facet arthrosis. No significant degenerative disc disease. ACT 112: Negative or not required by law. Electronically signed by: Joshua Winston M.D. 10/27/2022 9:04 AM
[2022-10-27] MEDS ORDERED: CYCLOBENZAPRINE HCL 5 MG TAB PO PRN (09:10)
--- NOTE | 2022-10-27 16:53 | Discharge Summary ---
Date of Service October 27, 2022 Admission HPI Per Admitting Provider Pt is 72 yo F with PMH of pAF, anxiety, nephrolithiasis, HLD, hypothyroidism, GERD presenting with low back pain. Pt states for past few days she has been trying to help her 180 lb grandson who has cerebral palsy with ADLs. This involves lifting and carrying him which she reports has caused significant back strain. Earlier today she fell to the ground and landed on her L side, did not strike her head. Her lower back pain has been severe and limiting her movement. She was brought to ER afterward. Pt arrived to ER hemodynamically stable. Initial evaluation with unremarkable CBC, K 3.2, CTAP w/ minimal acute L1 compression fracture, cholelithiasis and R nephrolithiasis. Pt given KCl, Tylenol, morphine 4 mg, lidocaine and NSS 500 cc bolus in ER. At present, pt reports the pain medication has helped reduce her pain slightly. She still reports lower back pain but denies any numbness, weakness, fever, dyspnea, chest pain. Admission Exam Per Admitting Provider General: well-appearing, no acute distress HEENT: PERRL, EOMI, conjunctivae clear without injection, anicteric sclerae, moist mucous membranes, clear oropharynx without exudate or erythema Neck: supple, trachea midline, no thyromegaly, no JVD, no cervical lymphadenopathy CV: RRR, normal S1 and S2, no murmurs Resp: CTAB, no increased work of breathing, no crackles or wheezes Abd: Soft, nontender, nondistended, no guarding or rebound, no hepatosplenomegaly MSK: Normal bulk of all four extremities, point tenderness of back at level of L1 Neuro: AOx3, no focal motor or sensory deficits, gait not assessed Skin: no rashes or lesions, warm and dry Ext: no LE peripheral edema or erythema, capillary refill <2s in all four extremities, 2+ LE peripheral pulses b/l Principal Diagnosis acute L1 compression fracture Discharge Exam Constitutional: well appearing, no acute distress HEENT: normocephalic, no conjunctival injection CV: regular rhythm, no murmur, no LE edema Respiratory: Clear to auscultation bilaterally. No rhonchi, wheezes, or crackles. No increased work of breathing MSK: no gross deformities noted, tight paraspinal musculature in the lumbar tho on Neuro: alert, oriented, no FND noted Discharge Data Allergies Allergy/AdvReac Type Severity Reaction Status Date / Time bee venom protein (honey bee) Allergy Severe THROAT Verified 10/21/22 21:23 CLOSES/HIVES Iodinated Contrast Media Allergy Intermediate HIVES Verified 10/21/22 21:23 aspirin AdvReac Unknown CONTRAINDICATED Verified 10/21/22 21:23 WITH BLOOD THINNERS ibuprofen AdvReac Unknown CONTRAINDICATED Verified 10/21/22 21:23 WITH BLOOD THINNERS mushroom AdvReac Unknown Unknown Verified 10/24/22 10:02 pepper (genus Capsicum) AdvReac Unknown Unknown Verified 10/24/22 10:05 Consultations 10/21/22 20:11 ED Decision to Admit Stat Ordered Studies 10/21/22 16:24 CT Abd and Pelvis [CT abd pelvis wo con] Stat IMPRESSION: 1. There is a minimal acute appearing superior endplate compression fracture of L1. Correlate for point tenderness. 2. No acute infectious or inflammatory findings are identified in the abdomen or pelvis. 3. Cholelithiasis. 4. Right-sided nephrolithiasis. 5. Additional findings as above. 10/26/22 09:39 MRI Lumbar Spine [MR lumbar spine wo con] Routine IMPRESSION: 1. L1 compression fracture with 30% loss of vertebral body height which has increased since prior CT of October 21, 2022. Interval development of mild retropulsion without central central canal stenosis. This fracture is acute. 2. No additional lumbar spine fracture. 3. Mild multilevel facet arthrosis. No significant degenerative disc disease. Hospital Course (1) Lower back pain: Pt is a 72 yo female with PMH of afib, anxiety, GERD, HLD, hypothyroidism, and CVA presenting due to increased back pain after a fall while transferring her nephew with CP. Age-related osteoporotic fracture of L1 vertebrae - CTAP with minimal acute superior endplate compression L1 fracture; MRI confirmed acute L1 fracture w/ mild retropulsion but w/o central canal stenosis - continue with PT/OT; encourage ambulation/transferring to prevent deconditioning and worsening pain - per ortho, recommend bracing and outpatient f/u in 1-2 weeks - continue pain control with tylenol 1000mg q8hr, oxycodone 5 mg q4hr, heat pad/ice PRN, and flexeril 5 mg up to TID PRN - as last DEXA scan showed osteoporosis (2020), would recommend outpatient bisphosphonate therapy; pt already taking vitamin D supplementation, but would recommend increase to 50,000 units weekly Constipation - increased risk in the setting of opioid use for pain control - continue docusate BID and miralax PRN Atrial fibrillation - Continue metoprolol, eliquis Impaired fasting glucose - A1C 6.0% in 07/2022 Hypothyroidism - Continue levothyroxine Hyperlipidemia - Continue atorvastatin GERD - Continue omeprazole Nephrolithiasis - pain does not appear to correlate with nephrolithiasis - incidental on CTAP, no obstruction at present FEN/GI: Heart-healthy, low fat Code status: Full DVT ppx: home eliquis Dispo: inpatient rehab (2) A-fib: (3) Prediabetes: (4) Hypothyroidism: (5) Hyperlipidemia: (6) Gastroesophageal reflux disease: (7) Constipation: (8) Kidney stone: Total Time Total Time Spent Total Time Spent (In Minutes): as per attending attestation Discharge Plan Discharge Items Patient Disposition: Transfer Inpatient Rehab Fac Reason For Visit: LUMBAR FRACTURE Discharge Diagnosis: acute L1 compression fracture Condition on Discharge: Fair Activity: Per Instructions section Non-emergency contact: Primary Care Provider Call non-emergency contact if: you have any medication questions, your symptoms worsen and your pain is not controlled Follow-up/Referrals: Marianne Hurd MD [Primary Care Provider] - Sam Franklin MD [Surgeon] - (f/u L1 compression fracture 1-2 weeks after d/c) Diet: Heart Healthy Addtl Attending Provider Instructions: Pt is a 72 yo female with PMH of afib, anxiety, GERD, HLD, hypothyroidism, and CVA presenting due to increased back pain after a fall while transferring her nephew with CP. Age-related osteoporotic fracture of L1 vertebrae - CTAP with minimal acute superior endplate compression L1 fracture; MRI confirmed acute L1 fracture w/ mild retropulsion but w/o central canal stenosis - given pinpoint tenderness, suspicion that pain is related to acute compression fx after fall with secondary muscular spasm - continue with PT/OT; encourage ambulation/transferring to prevent decon ditioning and worsening pain - per ortho, recommend bracing and outpatient f/u in 1-2 weeks - continue pain control with tylenol 1000mg q8hr, oxycodone 5 mg q4hr, heat pad/ice PRN, and flexeril 5 mg up to TID PRN - as last DEXA scan showed osteoporosis (2020), would recommend outpatient bisphosphonate therapy; pt already taking vitamin D supplementation, but would recommend increase to 50,000 units weekly Constipation - increased risk in the setting of opioid use for pain control - continue docusate BID and miralax PRN Atrial fibrillation - Continue metoprolol, eliquis Impaired fasting glucose - A1C 6.0% in 07/2022 Hypothyroidism - Continue levothyroxine Hyperlipidemia - Continue atorvastatin GERD - Continue omeprazole Nephrolithiasis - pain does not appear to correlate with nephrolithiasis - incidental on CTAP, no obstruction at present FEN/GI: Heart-healthy, low fat Code status: Full DVT ppx: home eliquis Dispo: inpatient rehab Pending Studies at Discharge: No Stand-Alone Forms: My [facility] Skilled Items Patient informed of condition?: Yes DNR: No Discharge Level of Care: Acute rehab Communicable Disease: No Discharge Prognosis: Stable Lines: None Urinary Catheter: No Medications and DC Order Prescriptions: New acetaminophen [Tylenol Extra Strength] 500 mg Tablet 1,000 mg PO Q8 14 Days Qty: 84 0RF docusate sodium 100 mg Capsule 100 mg PO BID 14 Days Qty: 28 0RF oxycodone 5 mg Tablet 5 mg PO Q4H 7 Days Qty: 42 0RF Continued acyclovir 200 mg capsule 200 mg PO 5XD PRN (Reason: OUTBREAKS) Qty: 30 0RF Rx Instructions: take one capsule by mouth 5 times a day for 5 days cholecalciferol (vitamin D3) 10 mcg (400 unit) capsule 10 mcg PO BID calcium carbonate [Calcium 600] 600 mg calcium (1,500 mg) tablet 600 mg PO BID fluticasone propionate 50 mcg/actuation spray,suspension 2 spray INTNAS DAILY Qty: 48 2RF Rx Instructions: administer into each nostril meclizine 25 mg tablet 25 mg PO Q6H PRN (Reason: Dizziness) Qty: 90 1RF ondansetron 4 mg tablet,disintegrating 4 - 8 mg translingual BID PRN (Reason: nausea and vomiting) Qty: 90 3RF Eliquis 5 mg tablet 5 mg PO BID Qty: 60 5RF Rx Instructions: ONLY 30 DAYS AT A TIME. metoprolol succinate 25 mg tablet extended release 24 hr 25 mg PO HS Qty: 90 1RF olopatadine 0.1 % drops 1 drp ophthalmic (eye) DAILY Qty: 5 5RF Rx Instructions: one drop each eye daily in am. atorvastatin 80 mg tablet 80 mg PO HS Qty: 90 1RF omeprazole 40 mg capsule,delayed release(DR/EC) 40 mg PO QAM Qty: 90 1RF lorazepam 0.5 mg tablet 0.5 mg PO TID PRN (Reason: anxiety) Qty: 90 0RF Rx Instructions: PER PT "USES 3 X DAY". polyethylene glycol 3350 [Miralax] 17 gram powder in packet 17 gm PO DAILY PRN (Reason: Constipation) levalbuterol tartrate [Xopenex HFA] 45 mcg/actuation HFA aerosol inhaler See Rx Instructions inhalation .COMPLEX PRN (Reason: shortness of breath or wheezing) Qty: 15 2RF Rx Instructions: 1-2 INH 4-6 hrs PRN; cyclobenzaprine 5 mg tablet 5 mg PO TID PRN (Reason: Muscle Spasm) Qty: 30 1RF levothyroxine 100 mcg tablet 100 mcg PO DAILYBB nystatin 100,000 unit/gram cream 1 applic topical BID PRN (Reason: ABD FOLDS NEEDED) diclofenac sodium 1 % gel 4 g topical QID PRN (Reason: Pain) Discontinued Colace Clear 50 mg capsule 50 mg PO DAILY Discharge Orders: Discharge Order (Routine); Ordered 10/27/22 Ordered By: Shana Mercer Admission Data Admit Date/Time: 10/21/22 20:32 Attending Provider: Melissa Hummel Admit Provider: Willie Huertas Primary Care Provider: Marianne Hurd Other Providers: Pawan Grissom ; Tc Sanderson ; [facility] Other Interventions: Discharge Summary Assessment (RN) Last Done: 10/27/22 16:39 Supervising Physician Co-Signing Physician Notes Resident Physician Supervision Note: I independently interviewed and examined the patient and verified the [place] history and physical, reviewed labs and image studies and agree with resident findings and care plan. Resident Activity Tracking Resident Involvement: Resident Care Provided Care Provided: Adult Hospital Medicine
== END 2022-10-27 17:22 | DRG 544 ==
LOC: ED 15:35 → SUATTDRO 20:32 → 3W 20:32

== ENCOUNTER 2023-01-15 20:52 | Observation (INO) ==
[2023-01-15] MEDS ORDERED: SODIUM CHLORIDE 0.9% 500 ML IV ONE (21:15)
[2023-01-15 22:17] LABS: Basophils # (auto) 0.04 K/uL (0-0.2); Basophils % (auto) 0.6 %; Eosinophils # (auto) 0.28 K/uL (0-0.50); Hematocrit (blood only) 36.7 % (37.0-47.0); Hemoglobin 13.4 g/dl (12.0-16.0); Immature Granulocytes # (auto) 0.02 K/uL (0.01-0.20); Immature Granulocytes % (auto) 0.3 %; Lymphocytes # (auto) 2.18 K/uL (1.2-3.4); Lymphocytes % (auto) 31.5 %; Mean Corpuscular Hemoglobin 32.8 pg (25.0-34.0); Mean Corpuscular Hgb Conc 36.5 g/dL (32.0-36.0); Mean Platelet Volume 9.8 fL (9.4-12.4); Monocytes # (auto) 0.83 K/uL (0.11-0.59); Neutrophils # (auto) 3.58 K/uL (1.40-6.50); Neutrophils % (auto) 51.6 %; Platelet Count 165 K/uL (130-400); RDW Coefficient of Variation 12.1 % (11.5-14.5); Red Blood Count 4.08 M/uL (4.20-5.40); White Blood Count 6.93 K/ul (4.8-10.8)
[2023-01-15] MEDS ORDERED: ACETAMINOPHEN 1,000 MG/100 ML VIAL IV STA (22:21)
[2023-01-15 22:22] LABS: Anion Gap 12 (3-11); Bilirubin,Total 0.6 mg/dl (0.2-1.0); Calcium 9.7 mg/dl (8.6-10.3); Carbon Dioxide 23 mmol/L (21-32); Chloride 102 mmol/L (98-107); Magnesium 1.4 mg/dl (1.7-2.4); Potassium 3.4 mmol/L (3.5-5.1); Sodium 137 mmol/L (136-145)
[2023-01-15 22:28] LABS: Alanine Aminotransferase 19 U/L (7-52); Albumin Globulin Ratio 1.5 (0.9-2); Alkaline Phosphatase 77 U/L (34-104); Aspartate Aminotransferase 25 U/L (13-39); BUN Creatinine Ratio 17.2 (10-20); Blood Urea Nitrogen 11 mg/dl (6-23); Creatinine Clr Calc Pharmacy 72.9 ml/min; Est GFR (African American) 103.3 ml/min; Est GFR (Non-African American) 89.2 ml/min; Globulin 2.7 gm/dl (2.5-4.0); Glucose 162 mg/dl (70-99(Fasting)); Lipase 27 U/L (11-82); Phosphorus 3.4 mg/dl (2.5-4.9); Total Protein 6.7 gm/dl (6.0-8.3)
[2023-01-15 22:33] LABS: Troponin I High Sensitivity < 2.3 pg/ml (0-14)
[2023-01-15 22:34] LABS: Prothrombin Time 11.4 Seconds (9.0-12.0)
--- NOTE | 2023-01-15 22:41 | Emergency Department Note ---
Impression & Plan Stroke-like symptoms, Acute urinary retention, Closed compression fracture of lumbar vertebra, Hypomagnesemia ED Provider Note NAME: ADOLFO THIBODEAUX AGE: 72 SEX: F ARRIVES VIA: Ambulance INFORMANT: Patient ED PROVIDER(S): Brady Pedro MD CHIEF COMPLAINT: Stroke like symptoms. PLAN: Disposition: Admit MEDICAL DECISION MAKING: The patient is a pleasant 72-year-old woman with a past medical history of TIA, atrial fibrillation on Eliquis, gastroparesis, hypertension, hyperlipidemia, anxiety/PTSD, recent diagnosis of lumbar compression fracture who presents to the emergency department via EMS for evaluation of strokelike symptoms which occurred approximately an hour prior to arrival where she had reported feeling numbness, tingling and weakness in her left arm as if she had fallen asleep on it and having slurred speech/trouble speaking with symptoms that persisted up until she arrived to the emergency department. The patient and family further adds that she has had ongoing pain in her lumbar region for which she is taking tramadol. They further add that she has had new urinary urgency and concern for possible retention. They deny any fevers, chills, cough, congestion, diarrhea or constipation. Given the patient's symptoms arrived on arrival no indication for stroke alert at this time. On arrival to emergency department the patient is uncomfortable, anxious appearing but no acute distress, afebrile with heart rate in the 110s and vital signs otherwise stable. She appears clinically dry. At this time the patient has no focal neurologic deficits. Cranial nerves II-XII grossly intact. 5/5 strength and SILT x 4 extremities. Intact finger to nose. EKG without overt acute ischemia. CXR negative for acute cardiopulmonary process. WBC within normal limits. Hemoglobin within normal limits. Platelets within normal limits. Chemistry without metabolic acidosis. Potassium 3.4. Magnesium 1.4 with repletion provided. LFTs unremarkable. High-sensitivity troponin is undetectable. Lipase is not elevated. TSH is 7 however free T4 within normal limits. UA without convincing evidence of infection. COVID-19 RNA, PANCHITO test was negative. CT imaging without contrast performed due to contrast allergy. CT of the head demonstrates right frontal encephalomalacia consistent with old infarct as well as old left lacunar inarct. CT of the lumbar spine was performed and demonstrates patient's known L1 compression fracture which now demonstrates moderate to severe spinal canal stenosis which has progressed since MRI of the lumbar spine in October of this year. Otherwise, CT of the abdomen pelvis demonstrates fecal retention without e vidence of bowel obstruction. Patient agrees with plan for admission for further management evaluation of strokelike symptoms in addition to symptoms urinary retention in the setting of her lumbar compression fracture, though cord compression considered less likely at this time. Case was discussed with Dr. Grissom [facility] [place] hospitalist, who will evaluate the patient for admission. Triage Nursing notes reviewed and agree them. Prior/outside medical records reviewed Vital Signs: reviewed Differential diagnosis: Infection, dehydration, metabolic abnormality, hypo/hyperglycemia, electrolyte disturbance, anemia, hypoxia, cardiac sources, intracerebral event, toxicologic, neurologic, as well as other pathologies. ER treatment provided: See below. Diagnostics interpreted by me: ECG: Sinus tachycardia, 109 bpm, PACs, no overt ST elevation or depression, QTc 484, QRS 70. Cardiac Monitoring: An order for continuous cardiac monitoring was placed and demonstrated Sinus tachycardia, 109 bpm, PACs Laboratory studies: See below Imaging studies: See below Consultation(s): Case was discussed with Dr. Grissom [facility] [place] hospitalist, who will evaluate the patient for admission. HPI: The patient is a pleasant 72-year-old woman with a past medical history of TIA, atrial fibrillation on Eliquis, gastroparesis, hypertension, hyperlipidemia, anxiety/PTSD, recent diagnosis of lumbar compression fracture who presents to the emergency department via EMS for evaluation of strokelike symptoms which occurred approximately an hour prior to arrival where she had reported feeling numbness, tingling and weakness in her left arm as if she had fallen asleep on it and having slurred speech/trouble speaking with symptoms t hat persisted up until she arrived to the emergency department. The patient and family further adds that she has had ongoing pain in her lumbar region for which she is taking tramadol. They further add that she has had new urinary urgency and concern for possible retention. They deny any fevers, chills, cough, congestion, diarrhea or constipation. Given the patient's symptoms arrived on arrival no indication for stroke alert at this time. ROS: See above HPI for pertinent positives & negatives. A total of 10 systems reviewed and were otherwise negative. VITALS:See Below PHYSICAL EXAMINATION: GENERAL: Awake, alert, fatigued/uncomfortable-appearing, in no distress HENT: Normocephalic, atraumatic. Oropharynx with dry mucous membranes and otherwise unremarkable.. EYES: Normal conjunctiva. Sclera non-icteric. NECK: Supple. No nuchal rigidity. FROM. No JVD. RESPIRATORY: Clear to auscultation. CARDIAC: Tachycardic rate, normal rhythm. Extremities warm and well perfused. Pulses equal. ABDOMEN: Soft, non-distended. No tenderness to palpation. No rebound or guarding. No masses. RECTAL: Deferred. MUSCULOSKELETAL: Chest examination reveals no tenderness. The back is symmetrical on inspection without obvious abnormality. There is no CVA tenderness to palpation. No joint edema. LOWER EXTREMITIES: Calves are equal size bilaterally and non-tender. No edema. No discoloration. NEURO: Cranial nerves II-XII grossly intact. 5/5 strength and SILT x 4 extremities. Intact finger to nose. SKIN: No rash or jaundice noted. Brady Pedro MD Past Med/Surg History Medical History A-fib Adverse anesthesia outcome Hard time waking up Anxiety Bee sting reaction Chest pain (05/18/14) Cholelithiasis Conductive hearing loss of both ears Gastroesophageal reflux disease (10/29/12) History of cerebrovascular accident Hyperlipidemia (10/29/12) Hypothyroidism (10/29/12) Laryngitis, chronic Learning disability Left knee pain Pharyngitis, chronic Post traumatic stress disorder (PTSD) Prediabetes Stroke SVT (supraventricular tachycardia) Surgical History History of colonoscopy History of hysterectomy History of surgery Vaginal Reconstruction - 2012 History of tonsillectomy No pertinent past surgical history Tympanic tube insertion 2019. Family History Father Colorectal cancer Coronary heart disease Prostate cancer Cancer Aunt Diabetes Mother Myocardial infarction Coronary heart disease Stroke Daughter Crohn's disease Asthma Son Allergic rhinitis Family/Other Anemia Child Other Family history non-contributory Denies family history of Ovarian cancer Breast cancer Social History Smoking Status: Never smoker Second Hand Exposure: No; Do You Dip or Chew Tobacco: No; Hx Alcohol Use: No Hx Substance Use: Yes Substance Use Type Other:: Pt. takes prescription tramadol Preferred Language: [place] Communication Ability: Effective Communication Ability Comment: poor reading ability Visual Impairment: No Limitations Hearing Ability: Normal Acid Bleacher Required: No Beliefs That Will Affect Care: None marital status: Current Living Situation: Spouse Current Living Situation Comment: Lives with . Pt. states is not around much to assist pt. current occupational status: retired How many Children do You have: 3 Other Information That Helps Us Care for You: No Feels Safe at Home: Yes Safety Concerns: Feels Safe At This Time Childhood Exposure to Second-Hand Smoke: Yes Diet: regular caffeine: Yes (Soda - occasional) during the past year weight has: remained stable Dental Care, Regularly: No Physical Activity Frequency: Does not Exercise Seatbelt Use: always Sunscreen Use: Yes Assistive Devices: Cane, Glasses, Walker and Wheelchair Allergies Allergies Allergy/AdvReac Type Severity Reaction Status Date / Time bee venom protein (honey bee) Allergy Severe THROAT Verified 01/15/23 23:44 CLOSES/HIVES Iodinated Contrast Media Allergy Intermediate HIVES Verified 01/15/23 23:44 aspirin AdvReac Unknown CONTRAINDICATED Verified 01/15/23 23:44 WITH BLOOD THINNERS ibuprofen AdvReac Unknown CONTRAINDICATED Verified 01/15/23 23:44 WITH BLOOD THINNERS mushroom AdvReac Unknown Unknown Verified 01/15/23 23:44 pepper (genus Capsicum) AdvReac Unknown Unknown Verified 01/15/23 23:44 Home Meds Home Medications Medication Instructions Recorded Confirmed polyethylene glycol 3350 17 gram 17 gm PO DAILY PRN Constipation 07/16/19 01/15/23 oral powder packet (Miralax) calcium carbonate 600 mg calcium 600 mg PO BID 04/15/21 01/15/23 (1,500 mg) tablet (Calcium) cholecalciferol (vitamin D3) 10 10 mcg PO BID 04/15/21 01/15/23 mcg (400 unit) capsule diclofenac sodium 1 % topical gel 4 g topical QID PRN Pain 10/21/22 01/15/23 levothyroxine 100 mcg tablet 100 mcg PO DAILYBB 10/21/22 01/15/23 nystatin 100,000 unit/gram topical 1 applic topical BID PRN ABD FOLDS 10/21/22 01/15/23 cream NEEDED fluticasone propionate 50 2 spray intranasal DAILY PRN 01/15/23 01/15/23 mcg/actuation nasal allergies spray,suspension Previous Rx's Medication Instructions Recorded cyclobenzaprine 5 mg tablet 5 mg PO TID PRN Muscle Spasm #30 07/20/20 tabs acyclovir 200 mg capsule 200 mg PO 5XD PRN OUTBREAKS #30 01/14/21 caps levalbuterol tartrate 45 See Rx Instructions inhalation 07/27/21 mcg/actuation aerosol inhaler .COMPLEX PRN shortness of breath (Xopenex HFA) or wheezing #15 grams meclizine 25 mg tablet 25 mg PO Q6H PRN Dizziness #90 tabs 03/01/22 apixaban 5 mg tablet (Eliquis) 5 mg PO BID #60 tabs 08/22/22 olopatadine 0.1 % eye drops 1 drp ophthalmic (eye) DAILY #5 mL 09/08/22 atorvastatin 80 mg tablet 80 mg PO HS #90 tabs 10/03/22 omeprazole 40 mg capsule,delayed 40 mg PO QAM #90 caps 10/14/22 release lorazepam 0.5 mg tablet 0.5 mg PO TID PRN anxiety #90 tabs 11/25/22 ondansetron 4 mg disintegrating 4 - 8 mg translingual BID PRN 12/05/22 tablet nausea and vomiting #30 tabs calcitonin (salmon) 200 1 spray intranasal (ALT) DAILY 12/23/22 unit/actuation nasal spray #3.7 mL metoprolol succinate 25 mg 25 mg PO HS #90 tabs 01/06/23 tablet,extended release 24 hr tramadol 50 mg tablet 50 mg PO Q6H PRN SEVERE PAIN #15 01/13/23 tabs Results & Data (ED) Vital Signs Vital Signs - 24 hr 01/15/23 20:56 01/15/23 21:39 01/15/23 21:41 Temperature 36.8 C Temperature Source Oral Pulse Rate 112 H Pulse Rate from SpO2 Sensor Pulse Rhythm Regular Pulse Rhythm [Apical] Regular Pulse Strength Normal Respiratory Rate 18 Respiratory Effort / Characteristics Non-Labored Non-Labored Respiratory Depth Normal Normal Respiratory Pattern Regular Regular Blood Pressure 118/67 Blood Pressure [Right Arm] 122/95 Blood Pressure Mean 84 Blood Pressure Mean [Right Arm] 104 Blood Pressure Position Sitting Pulse Oximetry 91 92 Oxygen Delivery Method Room Air Room Air Room Air Oxygen Flow Rate Sepsis Recent Fever Within 48 Hours No Sepsis New/Unexplained Change in Mental Status No Sepsis Action Taken by Nursing No Action Required 01/15/23 20:57 01/15/23 23:03 01/15/23 20:58 Temperature Temperature Source Pulse Rate 114 H 108 H Pulse Rate from SpO2 Sensor 97 H Pulse Rhythm Pulse Rhythm [Apical] Pulse Strength Respiratory Rate 26 H Respiratory Effort / Characteristics Non-Labored Respiratory Depth Normal Respiratory Pattern Blood Pressure Blood Pressure [Right Arm] Blood Pressure Mean Blood Pressure Mean [Right Arm] Blood Pressure Position Pulse Oximetry 91 Oxygen Delivery Method Oxygen Flow Rate Sepsis Recent Fever Within 48 Hours Sepsis New/Unexplained Change in Mental Status Sepsis Action Taken by Nursing 01/15/23 21:00 01/15/23 21:30 01/15/23 21:30 Temperature Temperature Source Pulse Rate 115 H 108 H Pulse Rate from SpO2 Sensor 113 H 101 H Pulse Rhythm Pulse Rhythm [Apical] Pulse Strength Respiratory Rate 23 21 Respiratory Effort / Characteristics Respiratory Depth Respiratory Pattern Blood Pressure 122/95 Blood Pressure [Right Arm] Blood Pressure Mean 104 Blood Pressure Mean [Right Arm] Blood Pressure Position Pulse Oximetry 94 91 Oxygen Delivery Method Oxygen Flow Rate Sepsis Recent Fever Within 48 Hours Sepsis New/Unexplained Change in Mental Status Sepsis Action Taken by Nursing 01/15/23 22:00 01/15/23 22:30 01/15/23 23:00 Temperature Temperature Source Pulse Rate 93 H 94 H 101 H Pulse Rate from SpO2 Sensor 95 H 94 H 101 H Pulse Rhythm Pulse Rhythm [Apical] Pulse Strength Respiratory Rate 25 H 26 H 22 Respiratory Effort / Characteristics Respiratory Depth Respiratory Pattern Blood Pressure 131/79 116/65 Blood Pressure [Right Arm] Blood Pressure Mean 96 82 Blood Pressure Mean [Right Arm] Blood Pressure Position Pulse Oximetry 92 93 93 Oxygen Delivery Method Room Air Room Air Oxygen Flow Rate Sepsis Recent Fever Within 48 Hours Sepsis New/Unexplained Change in Mental Status Sepsis Action Taken by Nursing 01/15/23 23:38 01/15/23 23:30 01/15/23 23:30 Temperature Temperature Source Pulse Rate Pulse Rate from SpO2 Sensor 89 89 Pulse Rhythm Pulse Rhythm [Apical] Pulse Strength Respiratory Rate 14 Respiratory Effort / Characteristics Respiratory Depth Normal Respiratory Pattern Blood Pressure 117/71 Blood Pressure [Right Arm] Blood Pressure Mean 86 Blood Pressure Mean [Right Arm] Blood Pressure Position Pulse Oximetry 93 91 91 Oxygen Delivery Method Nasal Cannula Room Air Oxygen Flow Rate 2 Sepsis Recent Fever Within 48 Hours Sepsis New/Unexplained Change in Mental Status Sepsis Action Taken by Nursing 01/15/23 23:31 01/15/23 23:32 01/15/23 23:33 Temperature Temperature Source Pulse Rate 89 91 H Pulse Rate from SpO2 Sensor 90 89 90 Pulse Rhythm Pulse Rhythm [Apical] Pulse Strength Respiratory Rate 31 H 21 Respiratory Effort / Characteristics Respiratory Depth Respiratory Pattern Blood Pressure Blood Pressure [Right Arm] Blood Pressure Mean Blood Pressure Mean [Right Arm] Blood Pressure Position Pulse Oximetry 88 L 90 91 Oxygen Delivery Method Room Air Oxygen Flow Rate Sepsis Recent Fever Within 48 Hours Sepsis New/Unexplained Change in Mental Status Sepsis Action Taken by Nursing 01/15/23 23:34 01/15/23 23:35 01/15/23 23:36 Temperature Temperature Source Pulse Rate 89 88 92 H Pulse Rate from SpO2 Sensor 89 88 87 Pulse Rhythm Pulse Rhythm [Apical] Pulse Strength Respiratory Rate 21 34 H 36 H Respiratory Effort / Characteristics Respiratory Depth Respiratory Pattern Blood Pressure Blood Pressure [Right Arm] Blood Pressure Mean Blood Pressure Mean [Right Arm] Blood Pressure Position Pulse Oximetry 90 89 L 89 L Oxygen Delivery Method Room Air Oxygen Flow Rate Sepsis Recent Fever Within 48 Hours Sepsis New/Unexplained Change in Mental Status Sepsis Action Taken by Nursing 01/15/23 23:37 01/16/23 00:50 01/16/23 00:00 Temperature Temperature Source Pulse Rate 88 87 87 Pulse Rate from SpO2 Sensor 88 86 Pulse Rhythm Pulse Rhythm [Apical] Pulse Strength Respiratory Rate 17 21 Respiratory Effort / Characteristics Respiratory Depth Respiratory Pattern Blood Pressure 97/65 L Blood Pressure [Right Arm] Blood Pressure Mean 75 Blood Pressure Mean [Right Arm] Blood Pressure Position Pulse Oximetry 93 96 Oxygen Delivery Method Nasal Cannula Oxygen Flow Rate 2 Sepsis Recent Fever Within 48 Hours Sepsis New/Unexplained Change in Mental Status Sepsis Action Taken by Nursing 01/16/23 00:30 01/16/23 01:00 01/16/23 01:30 Temperature Temperature Source Pulse Rate 94 H 89 86 Pulse Rate from SpO2 Sensor 92 H 89 85 Pulse Rhythm Pulse Rhythm [Apical] Pulse Strength Respiratory Rate 22 22 19 Respiratory Effort / Characteristics Respiratory Depth Respiratory Pattern Blood Pressure 107/62 97/54 L 100/67 Blood Pressure [Right Arm] Blood Pressure Mean 77 68 78 Blood Pressure Mean [Right Arm] Blood Pressure Position Pulse Oximetry 96 96 96 Oxygen Delivery Method Nasal Cannula Nasal Cannula Nasal Cannula Oxygen Flow Rate 2 2 2 Sepsis Recent Fever Within 48 Hours Sepsis New/Unexplained Change in Mental Status Sepsis Action Taken by Nursing 01/16/23 01:00 Temperature Temperature Source Pulse Rate Pulse Rate from SpO2 Sensor Pulse Rhythm Pulse Rhythm [Apical] Regular Pulse Strength Respiratory Rate Respiratory Effort / Characteristics Respiratory Depth Respiratory Pattern Blood Pressure Blood Pressure [Right Arm] Blood Pressure Mean Blood Pressure Mean [Right Arm] Blood Pressure Position Pulse Oximetry Oxygen Delivery Method Nasal Cannula Oxygen Flow Rate 2 Sepsis Recent Fever Within 48 Hours Sepsis New/Unexplained Change in Mental Status Sepsis Action Taken by Nursing Laboratory Data Attestation: I reviewed the patient's lab results. 01/15/23 21:28 01/15/23 21:28 Lab Results 01/15/23 01/15/23 01/15/23 Range/Units 21: 21: 21:28 WBC 6.93 (4.8-10.8) K/ul RBC 4.08 L (4.20-5.40) M/uL Hgb 13.4 (12.0-16.0) g/dl Hct 36.7 L (37.0-47.0) % MCV 90.0 (80.0-100.0) fL MCH 32.8 (25.0-34.0) pg MCHC 36.5 H (32.0-36.0) g/dL RDW Std Deviation 39.0 (36.4-46.3) fL RDW Coeff of Mini 12.1 (11.5-14.5) % Plt Count 165 (130-400) K/uL MPV 9.8 (9.4-12.4) fL Immature Gran % (Auto) 0.3 % Neut % (Auto) 51.6 % Lymph % (Auto) 31.5 % Graham % (Auto) 12.0 % Eos % (Auto) 4.0 % Baso % (Auto) 0.6 % Neut # (Auto) 3.58 (1.40-6.50) K/uL Lymph # (Auto) 2.18 (1.2-3.4) K/uL Graham # (Auto) 0.83 H (0.11-0.59) K/uL Eos # (Auto) 0.28 (0-0.50) K/uL Baso # (Auto) 0.04 (0-0.2) K/uL Immature Gran # (Auto) 0.02 (0.01-0.20) K/uL PT 11.4 (9.0-12.0) Seconds INR 1.0 (0.9-1.1) Sodium (136-145) mmol/L Potassium (3.5-5.1) mmol/L Chloride (98-107) mmol/L Carbon Dioxide (21-32) mmol/L Anion Gap (3-11) BUN (6-23) mg/dl Creatinine (0.6-1.2) mg/dl Est Cr Clr Drug Dosing ml/min Est GFR ( Amer) ml/min Est GFR (Non-Af Amer) ml/min BUN/Creatinine Ratio (10-20) Glucose (70-99(Fasting)) mg/dl POC Glucose 154 H (70-99) mg/dl Calcium (8.6-10.3) mg/dl Phosphorus (2.5-4.9) mg/dl Magnesium (1.7-2.4) mg/dl Total Bilirubin (0.2-1.0) mg/dl Direct Bilirubin (0-0.2) mg/dl AST (13-39) U/L ALT (7-52) U/L Alkaline Phosphatase (34-104) U/L Troponin I High Sens (0-14) pg/ml Total Protein (6.0-8.3) gm/dl Albumin (3.4-5.0) gm/dl Globulin (2.5-4.0) gm/dl Albumin/Globulin Ratio (0.9-2) Lipase (11-82) U/L TSH (0.300-4.500) uIu/ml Free T4 (0.61-1.60) ng/dl Urine Color Urine Appearance (Clear) Urine pH (4.5-7.5) Ur Specific [place] (1.000-1.030) Urine Protein (Negative) Urine Glucose (UA) (Negative) Urine Ketones (Negative) Urine Blood (Negative) Urine Nitrite (Negative) Urine Bilirubin (Negative) Urine Urobilinogen (Negative) Ur Leukocyte Esterase (Negative) SARS-CoV-2, RNA, NAAT (NEGATIVE) 01/15/23 01/15/23 01/15/23 Range/Units 21:28 21:28 21:33 WBC (4.8-10.8) K/ul RBC (4.20-5.40) M/uL Hgb (12.0-16.0) g/dl Hct (37.0-47.0) % MCV (80.0-100.0) fL MCH (25.0-34.0) pg MCHC (32.0-36.0) g/dL RDW Std Deviation (36.4-46.3) fL RDW Coeff of Mini (11.5-14.5) % Plt Count (130-400) K/uL MPV (9.4-12.4) fL Immature Gran % (Auto) % Neut % (Auto) % Lymph % (Auto) % Graham % (Auto) % Eos % (Auto) % Baso % (Auto) % Neut # (Auto) (1.40-6.50) K/uL Lymph # (Auto) (1.2-3.4) K/uL Graham # (Auto) (0.11-0.59) K/uL Eos # (Auto) (0-0.50) K/uL Baso # (Auto) (0-0.2) K/uL Immature Gran # (Auto) (0.01-0.20) K/uL PT (9.0-12.0) Seconds INR (0.9-1.1) Sodium 137 (136-145) mmol/L Potassium 3.4 L (3.5-5.1) mmol/L Chloride 102 (98-107) mmol/L Carbon Dioxide 23 (21-32) mmol/L Anion Gap 12 H (3-11) BUN 11 (6-23) mg/dl Creatinine 0.64 (0.6-1.2) mg/dl Est Cr Clr Drug Dosing 72.9 ml/min Est GFR ( Amer) 103.3 ml/min Est GFR (Non-Af Amer) 89.2 ml/min BUN/Creatinine Ratio 17.2 (10-20) Glucose 162 H (70-99(Fasting)) mg/dl POC Glucose (70-99) mg/dl Calcium 9.7 (8.6-10.3) mg/dl Phosphorus 3.4 (2.5-4.9) mg/dl Magnesium 1.4 L (1.7-2.4) mg/dl Total Bilirubin 0.6 (0.2-1.0) mg/dl Direct Bilirubin 0.1 (0-0.2) mg/dl AST 25 (13-39) U/L ALT 19 (7-52) U/L Alkaline Phosphatase 77 (34-104) U/L Troponin I High Sens < 2.3 (0-14) pg/ml Total Protein 6.7 (6.0-8.3) gm/dl Albumin 4.0 (3.4-5.0) gm/dl Globulin 2.7 (2.5-4.0) gm/dl Albumin/Globulin Ratio 1.5 (0.9-2) Lipase 27 (11-82) U/L TSH (0.300-4.500) uIu/ml Free T4 (0.61-1.60) ng/dl Urine Color Urine Appearance (Clear) Urine pH (4.5-7.5) Ur Specific [place] (1.000-1.030) Urine Protein (Negative) Urine Glucose (UA) (Negative) Urine Ketones (Negative) Urine Blood (Negative) Urine Nitrite (Negative) Urine Bilirubin (Negative) Urine Urobilinogen (Negative) Ur Leukocyte Esterase (Negative) SARS-CoV-2, RNA, NAAT NEGATIVE (NEGATIVE) 01/15/23 01/15/23 Range/Units 22:21 22:46 WBC (4.8-10.8) K/ul RBC (4.20-5.40) M/uL Hgb (12.0-16.0) g/dl Hct (37.0-47.0) % MCV (80.0-100.0) fL MCH (25.0-34.0) pg MCHC (32.0-36.0) g/dL RDW Std Deviation (36.4-46.3) fL RDW Coeff of Mini (11.5-14.5) % Plt Count (130-400) K/uL MPV (9.4-12.4) fL Immature Gran % (Auto) % Neut % (Auto) % Lymph % (Auto) % Graham % (Auto) % Eos % (Auto) % Baso % (Auto) % Neut # (Auto) (1.40-6.50) K/uL Lymph # (Auto) (1.2-3.4) K/uL Graham # (Auto) (0.11-0.59) K/uL Eos # (Auto) (0-0.50) K/uL Baso # (Auto) (0-0.2) K/uL Immature Gran # (Auto) (0.01-0.20) K/uL PT (9.0-12.0) Seconds INR (0.9-1.1) Sodium (136-145) mmol/L Potassium (3.5-5.1) mmol/L Chloride (98-107) mmol/L Carbon Dioxide (21-32) mmol/L Anion Gap (3-11) BUN (6-23) mg/dl Creatinine (0.6-1.2) mg/dl Est Cr Clr Drug Dosing ml/min Est GFR ( Amer) ml/min Est GFR (Non-Af Amer) ml/min BUN/Creatinine Ratio (10-20) Glucose (70-99(Fasting)) mg/dl POC Glucose (70-99) mg/dl Calcium (8.6-10.3) mg/dl Phosphorus (2.5-4.9) mg/dl Magnesium (1.7-2.4) mg/dl Total Bilirubin (0.2-1.0) mg/dl Direct Bilirubin (0-0.2) mg/dl AST (13-39) U/L ALT (7-52) U/L Alkaline Phosphatase (34-104) U/L Troponin I High Sens (0-14) pg/ml Total Protein (6.0-8.3) gm/dl Albumin (3.4-5.0) gm/dl Globulin (2.5-4.0) gm/dl Albumin/Globulin Ratio (0.9-2) Lipase (11-82) U/L TSH 7.092 H (0.300-4.500) uIu/ml Free T4 1.24 (0.61-1.60) ng/dl Urine Color Yellow Urine Appearance Clear (Clear) Urine pH 6.0 (4.5-7.5) Ur Specific [place] 1.015 (1.000-1.030) Urine Protein Negative (Negative) Urine Glucose (UA) Negative (Negative) Urine Ketones Negative (Negative) Urine Blood Negative (Negative) Urine Nitrite Negative (Negative) Urine Bilirubin Negative (Negative) Urine Urobilinogen Negative (Negative) Ur Leukocyte Esterase Negative (Negative) SARS-CoV-2, RNA, NAAT (NEGATIVE) Administered Medications Levothyroxine Sodium (Levothyroxine Sodium 100 Mcg Tablet) 100 mcg PO DAILYBB EMA Stop: 02/15/23 06:29 Last Admin: 01/16/23 05:39 Dose: 100 mcg Documented By: QUE Discontinued Medications Sodium Chloride (Nss) 500 mls @ 999 mls/hr IV .Q31M ONE Stop: 01/15/23 21:45 Last Infusion: 01/15/23 22:53 Dose: 0 mls/hr Documented By: Admin: 01/15/23 21:48 Dose: 999 mls/hr Documented By: CATY Acetaminophen (Ofirmev) 1,000 mg in 100 mls @ 400 mls/hr IV NOW STA Stop: 01/15/23 22:35 Last Infusion: 01/15/23 23:26 Dose: 0 mls/hr Documented By: Admin: 01/15/23 22:54 Dose: 400 mls/hr Documented By: CATY Magnesium Sulfate/Dextrose (Magnesium Sulfate / D5w) 1 gm in 100 mls @ 100 mls/hr IV Q1H EMA Stop: 01/16/23 00:23 Last Infusion: 01/16/23 01:50 Dose: 0 mls/hr Documented By: Admin: 01/16/23 00:47 Dose: 100 mls/hr Documented By: Infusion: 01/16/23 00:11 Dose: 0 mls/hr Documented By: Admin: 01/15/23 23:06 Dose: 100 mls/hr Documented By: CATY Magnesium Sulfate/Dextrose (Magnesium Sulfate / D5w) 1 gm in 100 mls @ 50 mls/hr IV ONE ONE Stop: 01/16/23 04:01 Last Admin: 01/16/23 03:47 Dose: 50 mls/hr Documented By: CATY Imaging Data Radiologist's Impression: Head CT 01/15/23 22:11 Exam(s): CT HEAD Without Contrast EXAM: CT Head Without Intravenous Contrast CLINICAL HISTORY: Reason for exam: transient aphasia, LUE weakness. TECHNIQUE: Axial computed tomography images of the head/brain without intravenous contrast. Automated exposure control was utilized for the study. A dose lowering technique was utilized adhering to the principles of ALARA. COMPARISON: No relevant prior studies available. FINDINGS: No acute intracranial hemorrhage. No midline shift or mass effect. Encephalomalacia in the RIGHT frontal lobe, consistent with old infarct. Multiple LEFT basal ganglia lacunar infarct. Age-related cerebral volume loss. Periventricular and subcortical white matter hypoattenuation, consistent with chronic microangiopathy. The visualized orbits appear grossly unremarkable. The calvarium is intact. The visualized paranasal sinuses and mastoid air cells are grossly clear. IMPRESSION: No acute intracranial hemorrhage, midline shift, or mass effect. Encephalomalacia in the RIGHT frontal lobe, consistent with old infarct. Multiple LEFT basal ganglia lacunar infarct. Electronically signed by: Laci Lopez MD 01/15/23 23:55 PM Abdomen/Pelvis CT 01/15/23 22:17 Exam(s): CT ABDOMEN + PELVIS Without Contrast EXAM: CT Abdomen and Pelvis Without Intravenous Contrast CLINICAL HISTORY: Reason for exam: ?UTI, lumbar comp fx. TECHNIQUE: Axial computed tomography images of the abdomen and pelvis without intravenous contrast. Automated exposure control was utilized for the study. A dose lowering technique was utilized adhering to the principles of ALARA. COMPARISON: No relevant prior studies available. FINDINGS: Lung bases: Unremarkable. No mass. No consolidation. Heart: Mild cardiomegaly. ABDOMEN: Liver: Unremarkable. Gallbladder and bile ducts: Cholelithiasis. No ductal dilation. Pancreas: Unremarkable. No ductal dilation. Spleen: Unremarkable. No splenomegaly. Adrenals: Unremarkable. No mass. Kidneys and ureters: Unremarkable. No hydronephrosis or nephrolithiasis. Stomach and bowel: Mild fecal retention, correlate for constipation. No small bowel obstruction. No free air. PELVIS: Appendix: No findings to suggest acute appendicitis. Bladder: Decompressed urinary bladder contains a Da Silva catheter. No stones. Reproductive: Unremarkable as visualized. ABDOMEN and PELVIS: Intraperitoneal space: See above. Bones/joints: Vertebral plana at L1. Old compression deformity involving the superior plate of L2. Degenerative changes of the spine. No dislocation. Soft tissues: Small fat-containing umbilical hernia. Vasculature: Atherosclerotic changes of the aorta. No abdominal aortic aneurysm. Lymph nodes: Unremarkable. No enlarged lymph nodes. IMPRESSION: 1. 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 Old compression deformity involving the superior plate of L2. See the concomitant lumbar spine CT scan. 2. Cholelithiasis. 3. Decompressed urinary bladder contains a Da Silva catheter. 4. Mild fecal retention, correlate for constipation. No small bowel obstruction. No free air. Electronically signed by: Laci Lopez MD 01/16/23 00:[address] 01/15/23 23:10 Exam(s): CT L SPINE EXAM: CT Lumbar Spine Without Intravenous Contrast CLINICAL HISTORY: Reason for exam: pain, comp fx. TECHNIQUE: Axial computed tomography images of the lumbar spine without intravenous contrast. CTDI is 24.44 mGy and DLP is 1802.16 mGy-cm. Automated exposure control was utilized for the study. A dose lowering technique was utilized adhering to the principles of ALARA. COMPARISON: No relevant prior studies available. FINDINGS: Vertebral plana at L1 with retropulsion of the vertebral body, which contributes to moderate to severe spinal canal stenosis. Old, mild compression deformity of the superior plate of L2. The lumbar lordosis is preserved. There is no spondylolisthesis. The posterior elements are maintained, without evidence of acute fracture. The pedicles are intact. Multilevel lumbar spondylosis and degenerative disc disease. IMPRESSION: Vertebral plana at L1 with retropulsion of the vertebral body, which contributes to moderate to severe spinal canal stenosis. Old, mild compression deformity of the superior plate of L2. No acute compression fracture. Electronically signed by: Laci Lopez MD 01/16/23 00:03 AM Discharge Plan Visit Data Chief Complaint: TIA Symptoms Stated Complaint: ADVERSE RXN TO MEDS 2 HOURS AGO, [facility] ED Provider: Brady Pedro Discharge Problem: Stroke-like symptoms, Acute urinary retention, Closed compression fracture of lumbar vertebra, Hypomagnesemia Patient Disposition: Admitted As Inpatient Discharge Instructions Interventions: ED Discharge Assessment Last Done: 01/16/23 04:03 Closed compression fracture of lumbar vertebra Qualifiers: Encounter type: subsequent encounter Lumbar vertebra fracture level: L1
[2023-01-15 22:57] LABS: Appearance Urine Clear (Clear); Bilirubin Urine Negative (Negative); Blood Urine Negative (Negative); Color Urine Yellow; Glucose Urine UA Negative (Negative); Ketones Urine Negative (Negative); Leukocyte Esterase Urine Negative (Negative); Nitrite Urine Negative (Negative); Protein Urine Negative (Negative); Specific Gravity Urine 1.015 (1.000-1.030); Urobilinogen Urine Negative (Negative)
[2023-01-15 22:58] LABS: Thyroid Stimulating Hormone 7.092 uIu/ml (0.300-4.500)
[2023-01-15] MEDS: MAGNESIUM SULFATE / D5W 1 GM/100 ML BAG IV SCH (23:06)
[2023-01-15 23:38] LABS: T4 Free Thyroxine 1.24 ng/dl (0.61-1.60)
--- NOTE | 2023-01-15 23:56 | CT Scan Report ---
Exam(s): CT HEAD Without Contrast EXAM: CT Head Without Intravenous Contrast CLINICAL HISTORY: Reason for exam: transient aphasia, LUE weakness. TECHNIQUE: Axial computed tomography images of the head/brain without intravenous contrast. Automated exposure control was utilized for the study. A dose lowering technique was utilized adhering to the principles of ALARA. COMPARISON: No relevant prior studies available. FINDINGS: No acute intracranial hemorrhage. No midline shift or mass effect. Encephalomalacia in the RIGHT frontal lobe, consistent with old infarct. Multiple LEFT basal ganglia lacunar infarct. Age-related cerebral volume loss. Periventricular and subcortical white matter hypoattenuation, consistent with chronic microangiopathy. The visualized orbits appear grossly unremarkable. The calvarium is intact. The visualized paranasal sinuses and mastoid air cells are grossly clear. IMPRESSION: No acute intracranial hemorrhage, midline shift, or mass effect. Encephalomalacia in the RIGHT frontal lobe, consistent with old infarct. Multiple LEFT basal ganglia lacunar infarct. Electronically signed by: Laci Lopez MD 01/15/23 23:55 PM
--- NOTE | 2023-01-16 00:04 | CT Scan Report ---
Exam(s): CT L SPINE EXAM: CT Lumbar Spine Without Intravenous Contrast CLINICAL HISTORY: Reason for exam: pain, comp fx. TECHNIQUE: Axial computed tomography images of the lumbar spine without intravenous contrast. CTDI is 24.44 mGy and DLP is 1802.16 mGy-cm. Automated exposure control was utilized for the study. A dose lowering technique was utilized adhering to the principles of ALARA. COMPARISON: No relevant prior studies available. FINDINGS: Vertebral plana at L1 with retropulsion of the vertebral body, which contributes to moderate to severe spinal canal stenosis. Old, mild compression deformity of the superior plate of L2. The lumbar lordosis is preserved. There is no spondylolisthesis. The posterior elements are maintained, without evidence of acute fracture. The pedicles are intact. Multilevel lumbar spondylosis and degenerative disc disease. IMPRESSION: Vertebral plana at L1 with retropulsion of the vertebral body, which contributes to moderate to severe spinal canal stenosis. Old, mild compression deformity of the superior plate of L2. No acute compression fracture. Electronically signed by: Laci Lopez MD 01/16/23 00:03 AM
--- NOTE | 2023-01-16 00:07 | CT Scan Report ---
Exam(s): CT ABDOMEN + PELVIS Without Contrast EXAM: CT Abdomen and Pelvis Without Intravenous Contrast CLINICAL HISTORY: Reason for exam: ?UTI, lumbar comp fx. TECHNIQUE: Axial computed tomography images of the abdomen and pelvis without intravenous contrast. Automated exposure control was utilized for the study. A dose lowering technique was utilized adhering to the principles of ALARA. COMPARISON: No relevant prior studies available. FINDINGS: Lung bases: Unremarkable. No mass. No consolidation. Heart: Mild cardiomegaly. ABDOMEN: Liver: Unremarkable. Gallbladder and bile ducts: Cholelithiasis. No ductal dilation. Pancreas: Unremarkable. No ductal dilation. Spleen: Unremarkable. No splenomegaly. Adrenals: Unremarkable. No mass. Kidneys and ureters: Unremarkable. No hydronephrosis or nephrolithiasis. Stomach and bowel: Mild fecal retention, correlate for constipation. No small bowel obstruction. No free air. PELVIS: Appendix: No findings to suggest acute appendicitis. Bladder: Decompressed urinary bladder contains a Da Silva catheter. No stones. Reproductive: Unremarkable as visualized. ABDOMEN and PELVIS: Intraperitoneal space: See above. Bones/joints: Vertebral plana at L1. Old compression deformity involving the superior plate of L2. Degenerative changes of the spine. No dislocation. Soft tissues: Small fat-containing umbilical hernia. Vasculature: Atherosclerotic changes of the aorta. No abdominal aortic aneurysm. Lymph nodes: Unremarkable. No enlarged lymph nodes. IMPRESSION: 1. 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 Old compression deformity involving the superior plate of L2. See the concomitant lumbar spine CT scan. 2. Cholelithiasis. 3. Decompressed urinary bladder contains a Da Silva catheter. 4. Mild fecal retention, correlate for constipation. No small bowel obstruction. No free air. Electronically signed by: Laci Lopez MD 01/16/23 00:06 AM
[2023-01-16] MEDS: MAGNESIUM SULFATE / D5W 1 GM/100 ML BAG IV SCH (00:47)
[2023-01-16] MEDS ORDERED: MAGNESIUM SULFATE / D5W 1 GM/100 ML BAG IV ONE (02:02)
--- NOTE | 2023-01-16 02:13 | History & Physical Report ---
Date of Service January 16, 2023 Assessment & Plan (1) Closed compression fracture of body of L1 vertebra: Plan: Patient with L1 vertebral fracture which appeared to occur in October- she has had worsening pain over the past few weeks - she states that she is on Tylenol and Tramadol for her back pain at home which normally helps- it also appears that she is on 5 mg Oxy IR q4 PRN as well - She had ortho evaluation on 11/09/[address] Franklin- and was started on oxycodone/calcitonin/and calcium/vit d. - She is unsure which orthopaedics group she is following for her back and knees, but states she was hoping for injections to back - Orthospine consultation- appreciate assistance/evaluation - Her pain is better controlled at this time of evaluation following IV tylenol - Pain control as follows- Tylenol 650mg po q6 prn, Tramadol 50mg PO q6, Cyclobenzaprine 5mg TID PRN muscle spasms, Diclofenec gel, Oxy IR 5mg PO q6 prn, Morphine 2mg IV q4 for severe uncontrolled pain- rescue Narcan is available - Brace while out of bed - Consider Pain management consultation if surgery is not an option or feasible - PT/OT consultation (2) Pain: Plan: Acute/chronic- ongoing since October as above (3) Numbness and tingling in left hand: Plan: Intermittent and resolved, without any other focal deficits- also in the setting of hypomagnesemia of 1.4 - replete mag and other electrolytes - head CT scan notable for old lacunar infarcts - Consider cervical MRI if returns- but is without cervical pain - Defer further MRI evaluation for CVA/TIA to rounding team- as currently lower on differential secondary to no other focal deficits, with other explanation more likely (4) A-fib: Plan: PAF- currently in NSR on Apixaban 5mg PO BID - Continue for now while pending orthopaedics/spine consultation - Telemetry for now (5) Cholelithiases: Plan: Chronic with normal biliary labs (6) Patellofemoral arthritis of right knee: Plan: Chronic- no acute needs - recent injection 12/28/22 (7) Hypothyroidism: Plan: Chronic - no acute needs - continue Synthroid (8) Hyperlipidemia: Plan: Continue statin History of Present Illness Chief Complaint: back pain Primary Care Provider: Marianne Hurd MD 72 YOF with medical history of: Afib (on Eliquis), CVA (lacunar infarcts), OSWALD, GERD, Hypothyroidism, PTSD, Arthritis of knees, Chronic L1 compression fracture. Patient presented to the EMD today via EMS for complains of back pain. Patient states that she has had this pain for many months and has a back fracture, however over the past week it has gotten much worse. This pain has effected her ability to be up and around as well as causing decrease in oral food and liquid intake. She states that she has no appetite and when she does have to get up to get food or water, it hurts too much to finish. She notes that she used to walk with a cane. Patient also stated that she has had numbness and tingling to her left hand only that was in her fingertips up to her wrist, but was noted without weakness or clumsiness. She reports no vision changes, headaches, or other focal weakness or difficulty speaking, or reading/writing. In the EMD the patient had routine labs performed, was given IV Tylenol for pain, which she feels has helped, she also had CT scan of abdomen/pelvis, and head CT performed. Her CT scan of lumbar spine was noted- Vertebral plana at L1 with retropulsion of the vertebral body, which contributes to moderate to severe spinal canal stenosis. Patient will be admitted to medical telemetry for pain control, follow rhythm and neurological status as well as consultation to ortho spine. Currently pain is controlled and numbness of hand has resolved. CODE: DNR/DNI Allergies Allergy/AdvReac Type Severity Reaction Status Date / Time bee venom protein (honey bee) Allergy Severe THROAT Verified 01/15/23 23:44 CLOSES/HIVES Iodinated Contrast Media Allergy Intermediate HIVES Verified 01/15/23 23:44 aspirin AdvReac Unknown CONTRAINDICATED Verified 01/15/23 23:44 WITH BLOOD THINNERS ibuprofen AdvReac Unknown CONTRAINDICATED Verified 01/15/23 23:44 WITH BLOOD THINNERS mushroom AdvReac Unknown Unknown Verified 01/15/23 23:44 pepper (genus Capsicum) AdvReac Unknown Unknown Verified 01/15/23 23:44 Home Medications Medication Instructions Recorded Confirmed Type cyclobenzaprine 5 mg tablet 5 mg PO TID PRN Muscle Spasm #30 07/20/20 01/15/23 Rx tabs acyclovir 200 mg capsule 200 mg PO 5XD PRN OUTBREAKS #30 01/14/21 01/15/23 Rx caps calcium carbonate 600 mg calcium 600 mg PO BID 04/15/21 01/15/23 History (1,500 mg) tablet (Calcium) cholecalciferol (vitamin D3) 10 10 mcg PO BID 04/15/21 01/15/23 History mcg (400 unit) capsule levalbuterol tartrate 45 See Rx Instructions inhalation 07/27/21 01/15/23 Rx mcg/actuation aerosol inhaler .COMPLEX PRN shortness of breath (Xopenex HFA) or wheezing #15 grams meclizine 25 mg tablet 25 mg PO Q6H PRN Dizziness #90 tabs 03/01/22 01/15/23 Rx apixaban 5 mg tablet (Eliquis) 5 mg PO BID #60 tabs 08/22/22 01/15/23 Rx olopatadine 0.1 % eye drops 1 drp ophthalmic (eye) DAILY #5 mL 09/08/22 01/15/23 Rx atorvastatin 80 mg tablet 80 mg PO HS #90 tabs 10/03/22 01/15/23 Rx omeprazole 40 mg capsule,delayed 40 mg PO QAM #90 caps 10/14/22 01/15/23 Rx release diclofenac sodium 1 % topical gel 4 g topical QID PRN Pain 10/21/22 01/15/23 History levothyroxine 100 mcg tablet 100 mcg PO DAILYBB 10/21/22 01/15/23 History nystatin 100,000 unit/gram topical 1 applic topical BID PRN ABD FOLDS 10/21/22 01/15/23 History cream NEEDED lorazepam 0.5 mg tablet 0.5 mg PO TID PRN anxiety #90 tabs 11/25/22 01/15/23 Rx ondansetron 4 mg disintegrating 4 - 8 mg translingual BID PRN 12/05/22 01/15/23 Rx tablet nausea and vomiting #30 tabs calcitonin (salmon) 200 1 spray intranasal (ALT) DAILY 12/23/22 01/15/23 Rx unit/actuation nasal spray #3.7 mL metoprolol succinate 25 mg 25 mg PO HS #90 tabs 01/06/23 01/15/23 Rx tablet,extended release 24 hr tramadol 50 mg tablet 50 mg PO Q6H PRN SEVERE PAIN #15 01/13/23 01/15/23 Rx tabs fluticasone propionate 50 2 spray intranasal DAILY PRN 01/15/23 01/15/23 History mcg/actuation nasal allergies spray,suspension acetaminophen 325 mg tablet 650 mg PO Q4H PRN mild-moderate 01/17/23 Rx pain #60 tabs oxycodone 5 mg tablet 5 mg PO Q6 PRN severe pain #15 tabs 01/17/23 Rx polyethylene glycol 3350 17 gram 17 gm PO DAILY PRN Constipation 01/17/23 01/15/23 Rx oral powder packet (Miralax) #30 ea sennosides 8.6 mg-docusate sodium 1 tab PO HS #30 tabs 01/17/23 Rx 50 mg tablet (Senokot-S) Past Med/Surg History Medical History A-fib Adverse anesthesia outcome Hard time waking up Anxiety Bee sting reaction Chest pain (05/18/14) Cholelithiasis Conductive hearing loss of both ears Gastroesophageal reflux disease (10/29/12) History of cerebrovascular accident Hyperlipidemia (10/29/12) Hypothyroidism (10/29/12) Laryngitis, chronic Learning disability Left knee pain Pharyngitis, chronic Post traumatic stress disorder (PTSD) Prediabetes Stroke SVT (supraventricular tachycardia) Surgical History History of colonoscopy History of hysterectomy History of surgery Vaginal Reconstruction - 2012 History of tonsillectomy No pertinent past surgical history Tympanic tube insertion 2019. Family History Father Colorectal cancer Coronary heart disease Prostate cancer Cancer Aunt Diabetes Mother Myocardial infarction Coronary heart disease Stroke Daughter Crohn's disease Asthma Son Allergic rhinitis Family/Other Anemia Child Other Family history non-contributory Denies family history of Ovarian cancer Breast cancer Social History Smoking Status: Never smoker Second Hand Exposure: No; Do You Dip or Chew Tobacco: No; Hx Alcohol Use: No Hx Substance Use: Yes Substance Use Type Other:: Pt. takes prescription tramadol Preferred Language: Yakut Communication Ability: Effective Communication Ability Comment: poor reading ability Visual Impairment: No Limitations Hearing Ability: Normal Cigar Bander Hand Required: No Beliefs That Will Affect Care: None marital status: Current Living Situation: Spouse Current Living Situation Comment: Lives with . Pt. states is not around much to assist pt. current occupational status: retired How many Children do You have: 3 Feels Safe at Home: Yes Childhood Exposure to Second-Hand Smoke: Yes Diet: regular caffeine: Yes (Soda - occasional) during the past year weight has: remained stable Dental Care, Regularly: No Physical Activity Frequency: Does not Exercise Seatbelt Use: always Sunscreen Use: Yes Assistive Devices: Cane, Walker and Wheelchair Review of Systems Review of Systems: REVIEW OF SYSTEMS: Constitutional: No fever, sweats or chills Eyes: No diplopia, no worsening or blurred vision ENT: normal hearing, no trouble swallowing Respiratory: No cough, sputum, dyspnea at rest or on exertion Cardiovascular: No chest pain, tightness or palpitations Abdomen: (+) decrease appetite, No pain, nausea, vomiting, diarrhea or constipation Musculoskeletal: (+) back pain, No joint pain, calf pain, swelling Neurologic: (+) tingling to hand, No weakness, numbness/tingling, or other deficits Psychiatric: (+) anxiety, Skin: No rash or itch Physical Exam Physical Exam: PHYSICAL EXAM: General: awake, alert, no apparent distress Head: Normocephalic, atraumatic ENT: PERRL, EOMI, no pharyngeal exudate, mucous membranes moist Neuro: AAO x 3, speech clear and appropriate, strength intact bilaterally 5/5, sensation intact and equal all extremities and dermatomes, no pronator drift, no facial droop, no ataxia, no cervical pain Chest: equal rise and fall of the chest, no accessory muscle use, no heaves or thrills, Clear to auscultation, on room air, Cardiac:Rregular rate and rhythm, telemetry reviewed- NSR-ST, skin warm dry, cap refill <3 seconds, peripheral pulses +2 no JVD, no murmur, no JVD, no edema GI: NABS x 4 quadrants, soft, nontender to palpation, no rebound, guarding or tenderness : Spontaneously voiding, no pain, no CVA tenderness, MSK: Pain to lower thoracic and lumbar spine with palpation, no pain in hips or pelvis, no radicular symptoms to legs Psych: Normal mood and affect Skin: no rash or erythema Results & Data Results & Data Vital Signs (Past 12 Hours) Vital Signs Temp Pulse Resp BP BP Pulse Ox O2 Del Method 01/16/23 01:30 86 19 100/67 96 Nasal Cannula 01/16/23 01:00 89 22 97/54 L 96 Nasal Cannula 01/16/23 00:30 94 H 22 107/62 96 Nasal Cannula 01/16/23 00:00 87 21 97/65 L 96 Nasal Cannula 01/16/23 00:50 87 01/15/23 23:37 88 17 93 01/15/23 23:36 92 H 36 H 89 L 01/15/23 23:35 88 34 H 89 L Room Air 01/15/23 23:34 89 21 90 01/15/23 23:33 91 H 21 91 01/15/23 23:32 89 31 H 90 Room Air 01/15/23 23:31 88 L 01/15/23 23:30 91 01/15/23 23:30 117/71 91 Room Air 01/15/23 23:38 14 93 Nasal Cannula 01/15/23 23:00 101 H 22 116/65 93 Room Air 01/15/23 22:30 94 H 26 H 131/79 93 Room Air 01/15/23 22:00 93 H 25 H 92 01/15/23 21:30 108 H 21 91 01/15/23 21:30 122/95 01/15/23 21:00 115 H 23 94 01/15/23 20:58 108 H 26 H 91 01/15/23 20:57 114 H 01/15/23 21:41 92 Room Air 01/15/23 21:39 122/95 Room Air 01/15/23 20:56 36.8 C 112 H 18 118/67 91 Room Air O2 Flow Rate 01/16/23 01:30 2 01/16/23 01:00 2 01/16/23 00:30 2 01/16/23 00:00 2 01/16/23 00:50 01/15/23 23:37 01/15/23 23:36 01/15/23 23:35 01/15/23 23:34 01/15/23 23:33 01/15/23 23:32 01/15/23 23:31 01/15/23 23:30 01/15/23 23:30 01/15/23 23:38 2 01/15/23 23:00 01/15/23 22:30 01/15/23 22:00 01/15/23 21:30 01/15/23 21:30 01/15/23 21:00 01/15/23 20:58 01/15/23 20:57 01/15/23 21:41 01/15/23 21:39 01/15/23 20:56 Laboratory Results Abnormal lab results 01/15/23 01/15/23 01/15/23 Range/Units 21:21 21:28 21:28 RBC 4.08 L (4.20-5.40) M/uL Hct 36.7 L (37.0-47.0) % MCHC 36.5 H (32.0-36.0) g/dL [place] # (Auto) 0.83 H (0.11-0.59) K/uL Potassium 3.4 L (3.5-5.1) mmol/L Anion Gap 12 H (3-11) Glucose 162 H (70-99(Fasting)) mg/dl POC Glucose 154 H (70-99) mg/dl Magnesium 1.4 L (1.7-2.4) mg/dl TSH (0.300-4.500) uIu/ml 01/15/23 Range/Units 22:21 RBC (4.20-5.40) M/uL Hct (37.0-47.0) % MCHC (32.0-36.0) g/dL [place] # (Auto) (0.11-0.59) K/uL Potassium (3.5-5.1) mmol/L Anion Gap (3-11) Glucose (70-99(Fasting)) mg/dl POC Glucose (70-99) mg/dl Magnesium (1.7-2.4) mg/dl TSH 7.092 H (0.300-4.500) uIu/ml Diagnostic Findings Head CT 01/15/23 22:11 Exam(s): CT HEAD Without Contrast EXAM: CT Head Without Intravenous Contrast CLINICAL HISTORY: Reason for exam: transient aphasia, LUE weakness. TECHNIQUE: Axial computed tomography images of the head/brain without intravenous contrast. Automated exposure control was utilized for the study. A dose lowering technique was utilized adhering to the principles of ALARA. COMPARISON: No relevant prior studies available. FINDINGS: No acute intracranial hemorrhage. No midline shift or mass effect. Encephalomalacia in the RIGHT frontal lobe, consistent with old infarct. Multiple LEFT basal ganglia lacunar infarct. Age-related cerebral volume loss. Periventricular and subcortical white matter hypoattenuation, consistent with chronic microangiopathy. The visualized orbits appear grossly unremarkable. The calvarium is intact. The visualized paranasal sinuses and mastoid air cells are grossly clear. IMPRESSION: No acute intracranial hemorrhage, midline shift, or mass effect. Encephalomalacia in the RIGHT frontal lobe, consistent with old infarct. Multiple LEFT basal ganglia lacunar infarct. Electronically signed by: Laci Lopez MD 01/15/23 23:55 PM Abdomen/Pelvis CT 01/15/23 22:17 Exam(s): CT ABDOMEN + PELVIS Without Contrast EXAM: CT Abdomen and Pelvis Without Intravenous Contrast CLINICAL HISTORY: Reason for exam: ?UTI, lumbar comp fx. TECHNIQUE: Axial computed tomography images of the abdomen and pelvis without intravenous contrast. Automated exposure control was utilized for the study. A dose lowering technique was utilized adhering to the principles of ALARA. COMPARISON: No relevant prior studies available. FINDINGS: Lung bases: Unremarkable. No mass. No consolidation. Heart: Mild cardiomegaly. ABDOMEN: Liver: Unremarkable. Gallbladder and bile ducts: Cholelithiasis. No ductal dilation. Pancreas: Unremarkable. No ductal dilation. Spleen: Unremarkable. No splenomegaly. Adrenals: Unremarkable. No mass. Kidneys and ureters: Unremarkable. No hydronephrosis or nephrolithiasis. Stomach and bowel: Mild fecal retention, correlate for constipation. No small bowel obstruction. No free air. PELVIS: Appendix: No findings to suggest acute appendicitis. Bladder: Decompressed urinary bladder contains a Da Silva catheter. No stones. Reproductive: Unremarkable as visualized. ABDOMEN and PELVIS: Intraperitoneal space: See above. Bones/joints: Vertebral plana at L1. Old compression deformity involving the superior plate of L2. Degenerative changes of the spine. No dislocation. Soft tissues: Small fat-containing umbilical hernia. Vasculature: Atherosclerotic changes of the aorta. No abdominal aortic aneurysm. Lymph nodes: Unremarkable. No enlarged lymph nodes. IMPRESSION: 1. 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 Old compression deformity involving the superior plate of L2. See the concomitant lumbar spine CT scan. 2. Cholelithiasis. 3. Decompressed urinary bladder contains a Da Silva catheter. 4. Mild fecal retention, correlate for constipation. No small bowel obstruction. No free air. Electronically signed by: Laci Lopez MD 01/16/23 00:[address] 01/15/23 23:10 Exam(s): CT L SPINE EXAM: CT Lumbar Spine Without Intravenous Contrast CLINICAL HISTORY: Reason for exam: pain, comp fx. TECHNIQUE: Axial computed tomography images of the lumbar spine without intravenous contrast. CTDI is 24.44 mGy and DLP is 1802.16 mGy-cm. Automated exposure control was utilized for the study. A dose lowering technique was utilized adhering to the principles of ALARA. COMPARISON: No relevant prior studies available. FINDINGS: Vertebral plana at L1 with retropulsion of the vertebral body, which contributes to moderate to severe spinal canal stenosis. Old, mild compression deformity of the superior plate of L2. The lumbar lordosis is preserved. There is no spondylolisthesis. The posterior elements are maintained, without evidence of acute fracture. The pedicles are intact. Multilevel lumbar spondylosis and degenerative disc disease. IMPRESSION: Vertebral plana at L1 with retropulsion of the vertebral body, which contributes to moderate to severe spinal canal stenosis. Old, mild compression deformity of the superior plate of L2. No acute compression fracture. Electronically signed by: Laci Lopez MD 01/16/23 00:03 AM Medications Administered Discontinued Medications Sodium Chloride (Nss) 500 mls @ 999 mls/hr IV .Q31M ONE Stop: 01/15/23 21:45 Last Infusion: 01/15/23 22:53 Dose: 0 mls/hr Documented By: Admin: 01/15/23 21:48 Dose: 999 mls/hr Documented By: CATY Acetaminophen (Ofirmev) 1,000 mg in 100 mls @ 400 mls/hr IV NOW STA Stop: 01/15/23 22:35 Last Infusion: 01/15/23 23:26 Dose: 0 mls/hr Documented By: Admin: 01/15/23 22:54 Dose: 400 mls/hr Documented By: CATY Magnesium Sulfate/Dextrose (Magnesium Sulfate / D5w) 1 gm in 100 mls @ 100 mls/hr IV Q1H EMA Stop: 01/16/23 00:23 Last Infusion: 01/16/23 01:50 Dose: 0 mls/hr Documented By: Admin: 01/16/23 00:47 Dose: 100 mls/hr Documented By: Infusion: 01/16/23 00:11 Dose: 0 mls/hr Documented By: Admin: 01/15/23 23:06 Dose: 100 mls/hr Documented By: CATY ECG Additional Comments: Sinus tachycardia with Premature atrial complexes with Aberrant conduction Otherwise normal ECG When compared with ECG of 25-NOV-2020 19:40, Aberrant conduction is now Present Code Status & VTE Plan VTE Prophylaxis Plan VTE Prophylaxis will be ordered: Yes Supervising Physician Co-Signing Physician Notes Attending addendum: I have physically seen this patient, have supervised the [facility]'s activities, and agree with the H&P unless as otherwise noted. Assessment and Plan: Closed compression fracture of L1 vertebrae/moderate to severe spinal stenosis- Has been seen by Dr. Franklin on 11/09/2022 Acetaminophen 650 mg by mouth every 6 hours as needed for mild pain or fever Tramadol 50 mg by mouth every 6 hours as needed for mild to moderate pain Cyclobenzaprine 5 mg p.o. 3 times daily as needed muscle spasm Diclofenac gel as needed Oxy IR 5 mg p.o. every 6 hours as needed for severe pain Morphine 2 mg IV every 4 hours as needed breakthrough pain Consult PT/OT Consulting orthopedic surgery May benefit from a pain management consult Atrial fibrillation- Continue apixaban 5 mg p.o. twice daily Will need to be held if patient is determined to be a surgery or procedure candidate Remaining orders and notations as noted PG Care Time/CCT Total # of Minutes Spent Total Time Spent with Patient: Total time spent is greater than 50% in coordination of care (as documented) at patient's floor/unit and/or counseling patient: Coding Level of Care Code 68626 INT INP/OBS CARE 2MIN Diagnoses Closed compression fracture of body of L1 vertebra S32.010A Pain R52 Numbness and tingling in left hand R20.0; R20.2 A-fib I48.91 Cholelithiases K80.20 Patellofemoral arthritis of right knee M17.11 Hypothyroidism E03.9 Hyperlipidemia E78.5
[2023-01-16] MEDS ORDERED: MoRPHine SULFATE 2 MG/ML CARP IV PRN (04:40)
[2023-01-16] MEDS ORDERED: NYSTATIN CR 15 GM TUBE EXT PRN (04:40)
[2023-01-16] MEDS ORDERED: FLUTICASONE PROPIONATE NA SPR 16 GM BTL NAE PRN (04:40)
[2023-01-16] MEDS ORDERED: ONDANSETRON 4 MG OD TAB SL PRN (04:40)
[2023-01-16] MEDS ORDERED: LEVALBUTEROL TARTRATE 15 GM HFA.AER.AD INH PRN (04:40)
[2023-01-16] MEDS ORDERED: DICLOFENAC SOD 1% GEL 100 GM TUBE EXT PRN (04:40)
[2023-01-16] MEDS ORDERED: POLYETHYLENE (MIRALAX) 17 GM PACK PO PRN (04:40)
[2023-01-16] MEDS ORDERED: NALOXONE HCL 0.4 MG/1 ML VIAL/CARP IV PRN (04:40)
[2023-01-16] MEDS: LEVOTHYROXINE SODIUM 100 MCG TABLET PO SCH (05:39)
[2023-01-16 06:06] LABS: Basophils # (auto) 0.04 K/uL (0-0.2); Basophils % (auto) 0.8 %; Eosinophils # (auto) 0.33 K/uL (0-0.50); Eosinophils % (auto) 6.6 %; Hematocrit (blood only) 34.6 % (37.0-47.0); Hemoglobin 12.3 g/dl (12.0-16.0); Immature Granulocytes # (auto) 0.02 K/uL (0.01-0.20); Immature Granulocytes % (auto) 0.4 %; Lymphocytes # (auto) 2.11 K/uL (1.2-3.4); Lymphocytes % (auto) 42.1 %; Mean Corpuscular Hemoglobin 32.9 pg (25.0-34.0); Mean Corpuscular Hgb Conc 35.5 g/dL (32.0-36.0); Mean Corpuscular Volume 92.5 fL (80.0-100.0); Mean Platelet Volume 9.6 fL (9.4-12.4); Monocytes # (auto) 0.71 K/uL (0.11-0.59); Monocytes % (auto) 14.2 %; Neutrophils % (auto) 35.9 %; Platelet Count 147 K/uL (130-400); RDW Coefficient of Variation 12.3 % (11.5-14.5); RDW Standard Deviation 41.4 fL (36.4-46.3); Red Blood Count 3.74 M/uL (4.20-5.40); White Blood Count 5.01 K/ul (4.8-10.8)
[2023-01-16 06:24] LABS: BUN Creatinine Ratio 16.9 (10-20); Calcium 8.9 mg/dl (8.6-10.3); Est GFR (African American) 106.1 ml/min; Est GFR (Non-African American) 91.6 ml/min; Magnesium 2.1 mg/dl (1.7-2.4); Potassium 3.7 mmol/L (3.5-5.1)
--- NOTE | 2023-01-16 07:05 | XRay Report ---
XR chest 1V portable HISTORY: 72 years-old Female Chest pain, nonspecific acute chest pain COMPARISON: CT abdomen and pelvis and lumbar spine studies of same day, chest radiograph 11/25/2020, MR I lumbar spine 10/26/2022. TECHNIQUE: AP view of the chest FINDINGS: Cardiomediastinal and hilar silhouettes are within normal limits. No pneumothorax, pleural effusion, airspace consolidation or pulmonary edema. Degenerative changes of the shoulders and spine. L1 burst fracture demonstrates progressive superior endplate height loss. Suboptimal position of the acute com pression fracture involving the superior endplate of L2. IMPRESSION: 1. No acute process of the chest. 2. L1 burst fracture demonstrates progressive superior endplate vertebral body height loss compared t o the 10/26/2022 study. 3. Mild acute superior endplate compression deformity at L2 appears to be new from 10/26/2022, better s een on the same day CT lumbar spine study. ACT 112: Negative or not required by law. The above report was generated using voice recognition software. It may contain grammatical, syntax o r spelling errors. Electronically signed by: Taras Clark M.D. 01/16/2023 7:02 AM
[2023-01-16] MEDS: ACETAMINOPHEN 325 MG TAB PO PRN ×3 (08:04→20:53)
[2023-01-16] MEDS: APIXABAN 5 MG TABLET PO SCH ×2 (08:04→21:00)
[2023-01-16] MEDS: oxyCODONE HCL IR 5 MG TAB (IMMEDIATE RELEASE) PO PRN ×2 (08:04→14:17)
[2023-01-16] MEDS: PANTOprazole 40 MG TAB PO SCH (08:04)
[2023-01-16] MEDS: CYCLOBENZAPRINE HCL 5 MG TAB PO PRN ×2 (08:05→20:58)
[2023-01-16] MEDS: CALCITONIN SALMON NA 200 IU/AC 3.7 ML BTL NAE SCH (08:05)
[2023-01-16] MEDS: CALCIUM CARBONATE 1250MG TAB PO SCH ×2 (08:05→20:59)
[2023-01-16] MEDS: CHOLECALCIFEROL 400 UNITS 10 MCG TAB PO SCH ×2 (08:05→20:59)
--- NOTE | 2023-01-16 11:27 | Electrocardiogram Report ---
Test Reason : Blood Pressure : / mmHG Vent. Rate : 109 BPM Atrial Rate : 109 BPM P-R Int : 136 ms QRS Dur : 078 ms QT Int : 360 ms P-R-T Axes : 037 -24 034 degrees QTc Int : 484 ms Sinus tachycardia with Premature atrial complexes with Aberrant conduction Otherwise normal ECG When compared with ECG of 25-NOV-2020 19:40, Aberrant conduction is now Present Confirmed by Terry Maguire ([id number]) on 01/16/2023 11:27:03 AM Referred By: REFERRED SELF Confirmed By:Terry Maguire
[2023-01-16] MEDS: LORazepam 0.5 MG TAB PO PRN ×2 (14:17→20:56)
[2023-01-16] MEDS ORDERED: bisacodyL 10 MG SUPP PR STA (20:33)
--- NOTE | 2023-01-16 20:36 | History & Physical Bridge Note ---
Date of Service January 16, 2023 History & Physical Bridge Note I have examined the patient, reviewed the History & Physical and in the interval since the performance of the History & Physical I have noted the following changes of clinical significance: Has not moved her bowels in 5 days. Also was feeling like she had to push to get her urine out but feels much better with Ballesteros in place. Able to walk short distances but has severe pain in lower back with movement out of bed. Wishes someone would "just give me a shot." -added Miralax daily scheduled, senna/docusate 1 tab hs, and bisacodyl [place] x 1 now -continue Ballesteros -await Ortho SPine eval Needs rehab placement
[2023-01-16] MEDS: traMADol HCL 50 MG TABLET PO PRN (20:55)
[2023-01-16] MEDS: POLYETHYLENE (MIRALAX) 17 GM PACK PO SCH (20:56)
[2023-01-16] MEDS ORDERED: DOCUSATE SODIUM/SENNA 50/8.6MG TAB PO SCH (21:00)
[2023-01-16] MEDS ORDERED: ATORVASTATIN 40 MG TAB PO SCH (21:00)
[2023-01-16] MEDS ORDERED: METOPROLOL SUCC 25MG EXT REL TAB PO SCH (21:00)
[2023-01-17] MEDS: LEVOTHYROXINE SODIUM 100 MCG TABLET PO SCH (05:49)
[2023-01-17] MEDS: ACETAMINOPHEN 325 MG TAB PO PRN ×2 (05:49→09:36)
[2023-01-17] MEDS: oxyCODONE HCL IR 5 MG TAB (IMMEDIATE RELEASE) PO PRN ×2 (05:49→14:34)
[2023-01-17] MEDS: POLYETHYLENE (MIRALAX) 17 GM PACK PO SCH (05:49)
[2023-01-17] MEDS: traMADol HCL 50 MG TABLET PO PRN ×2 (07:57→17:05)
[2023-01-17] MEDS: PANTOprazole 40 MG TAB PO SCH (08:50)
[2023-01-17] MEDS: APIXABAN 5 MG TABLET PO SCH (08:50)
[2023-01-17] MEDS: CALCITONIN SALMON NA 200 IU/AC 3.7 ML BTL NAE SCH (08:51)
[2023-01-17] MEDS: CHOLECALCIFEROL 400 UNITS 10 MCG TAB PO SCH (08:51)
[2023-01-17] MEDS: CALCIUM CARBONATE 1250MG TAB PO SCH (08:51)
--- NOTE | 2023-01-17 11:34 | Orthopedic Consultation ---
Date of Service January 17, 2023 Assessment & Plan (1) Closed compression fracture of lumbar vertebra: (2) Back pain of thoracolumbar region: History of Present Illness Reason for Consultation: .Back pain, hx of L1 fracture Requesting Physician: . Attending Physician: Na Kiran MD .72-year-old female with a history of a L1 compression fracture From .She has been followed in office since that time, the last radiographs were on November 09, 2022. Patient was admitted with episodes of symptoms potentially consistent with CVA. Patient also continues to complain of pain in the upper lumbar spine consistent with the same symptoms that were present relative to the fracture. Patient notes pain in the thoracolumbar junction, no lower extremity symptomatology. She was improving until recently usually getting by with 2-3 regular strength tramadol's with acetaminophen and had switched to a cane. Exam reveals her to have pain to the thoracolumbar junction in the same location as the L1 fracture. She has intact strength to motor function against manual testing in the lower extremities. CT scan images of the lumbar spine from 01/16/2023 reveals the patient to have similar appearance of the L1 fracture with some evidence of healing, similar appearance as to the radiographs from November 09. There is moderate canal narrowing. Impression: Approaching 3 months out from L1 compression fracture with recent exacerbation of back pain, but no neural compressive symptoms in the lower extremities. Plan: Recommend upright x-ray at the thoracolumbar junction with the brace on to compare to previous radiographs. I discussed with the patient that certainly we can continue with the pain medication and mobilization as she is not having any neural compressive symptoms. I did discuss with her though that if symptoms do not resolve in the near future, we may have to consider posterior arthrodesis and instrumentation to address the continued symptoms, and certainly if the patient presents with consistent neural compressive symptoms. Recommend tramadol to be taken with acetaminophen anywhere from every 6-8 hours and mobilization with device allowing for upright positioning. Follow-up in office roughly 2 to 3 weeks after leaving rehabilitation. Allergies Allergy/AdvReac Type Severity Reaction Status Date / Time bee venom protein (honey bee) Allergy Severe THROAT Verified 01/15/23 23:44 CLOSES/HIVES Iodinated Contrast Media Allergy Intermediate HIVES Verified 01/15/23 23:44 aspirin AdvReac Unknown CONTRAINDICATED Verified 01/15/23 23:44 WITH BLOOD THINNERS ibuprofen AdvReac Unknown CONTRAINDICATED Verified 01/15/23 23:44 WITH BLOOD THINNERS mushroom AdvReac Unknown Unknown Verified 01/15/23 23:44 pepper (genus Capsicum) AdvReac Unknown Unknown Verified 01/15/23 23:44 Home Medications Medication Instructions Recorded Confirmed Type polyethylene glycol 3350 17 gram 17 gm PO DAILY PRN Constipation 07/16/19 01/15/23 History oral powder packet (Miralax) cyclobenzaprine 5 mg tablet 5 mg PO TID PRN Muscle Spasm #30 07/20/20 01/15/23 Rx tabs acyclovir 200 mg capsule 200 mg PO 5XD PRN OUTBREAKS #30 01/14/21 01/15/23 Rx caps calcium carbonate 600 mg calcium 600 mg PO BID 04/15/21 01/15/23 History (1,500 mg) tablet (Calcium) cholecalciferol (vitamin D3) 10 10 mcg PO BID 04/15/21 01/15/23 History mcg (400 unit) capsule levalbuterol tartrate 45 See Rx Instructions inhalation 07/27/21 01/15/23 Rx mcg/actuation aerosol inhaler .COMPLEX PRN shortness of breath (Xopenex HFA) or wheezing #15 grams meclizine 25 mg tablet 25 mg PO Q6H PRN Dizziness #90 tabs 03/01/22 01/15/23 Rx apixaban 5 mg tablet (Eliquis) 5 mg PO BID #60 tabs 08/22/22 01/15/23 Rx olopatadine 0.1 % eye drops 1 drp ophthalmic (eye) DAILY #5 mL 09/08/22 01/15/23 Rx atorvastatin 80 mg tablet 80 mg PO HS #90 tabs 10/03/22 01/15/23 Rx omeprazole 40 mg capsule,delayed 40 mg PO QAM #90 caps 10/14/22 01/15/23 Rx release diclofenac sodium 1 % topical gel 4 g topical QID PRN Pain 10/21/22 01/15/23 History levothyroxine 100 mcg tablet 100 mcg PO DAILYBB 10/21/22 01/15/23 History nystatin 100,000 unit/gram topical 1 applic topical BID PRN ABD FOLDS 10/21/22 01/15/23 History cream NEEDED lorazepam 0.5 mg tablet 0.5 mg PO TID PRN anxiety #90 tabs 11/25/22 01/15/23 Rx ondansetron 4 mg disintegrating 4 - 8 mg translingual BID PRN 12/05/22 01/15/23 Rx tablet nausea and vomiting #30 tabs calcitonin (salmon) 200 1 spray intranasal (ALT) DAILY 12/23/22 01/15/23 Rx unit/actuation nasal spray #3.7 mL metoprolol succinate 25 mg 25 mg PO HS #90 tabs 01/06/23 01/15/23 Rx tablet,extended release 24 hr tramadol 50 mg tablet 50 mg PO Q6H PRN SEVERE PAIN #15 01/13/23 01/15/23 Rx tabs fluticasone propionate 50 2 spray intranasal DAILY PRN 01/15/23 01/15/23 History mcg/actuation nasal allergies spray,suspension Past Med/Surg History Medical History A-fib Adverse anesthesia outcome Hard time waking up Anxiety Bee sting reaction Chest pain (05/18/14) Cholelithiasis Conductive hearing loss of both ears Gastroesophageal reflux disease (10/29/12) History of cerebrovascular accident Hyperlipidemia (10/29/12) Hypothyroidism (10/29/12) Laryngitis, chronic Learning disability Left knee pain Pharyngitis, chronic Post traumatic stress disorder (PTSD) Prediabetes Stroke SVT (supraventricular tachycardia) Surgical History History of colonoscopy History of hysterectomy History of surgery Vaginal Reconstruction - 2012 History of tonsillectomy No pertinent past surgical history Tympanic tube insertion 2019. Family History Father Colorectal cancer Coronary heart disease Prostate cancer Cancer Aunt Diabetes Mother Myocardial infarction Coronary heart disease Stroke Daughter Crohn's disease Asthma Son Allergic rhinitis Family/Other Anemia Child Other Family history non-contributory Denies family history of Ovarian cancer Breast cancer Social History Smoking Status: Never smoker Second Hand Exposure: No; Do You Dip or Chew Tobacco: No; Hx Alcohol Use: No Hx Substance Use: Yes Substance Use Type Other:: Pt. takes prescription tramadol Preferred Language: Omani Communication Ability: Effective Communication Ability Comment: poor reading ability Visual Impairment: No Limitations Hearing Ability: Normal Relaster Required: No Beliefs That Will Affect Care: None marital status: Current Living Situation: Spouse Current Living Situation Comment: Lives with . Pt. states is not around much to assist pt. current occupational status: retired How many Children do You have: 3 Other Information That Helps Us Care for You: No Feels Safe at Home: Yes Safety Concerns: Feels Safe At This Time Childhood Exposure to Second-Hand Smoke: Yes Diet: regular caffeine: Yes (Soda - occasional) during the past year weight has: remained stable Dental Care, Regularly: No Physical Activity Frequency: Does not Exercise Seatbelt Use: always Sunscreen Use: Yes Assistive Devices: Cane, Walker and Wheelchair Review of Systems All systems reviewed & are unremarkable except as noted in HPI & below. Physical Exam . Results & Data Results & Data Laboratory Results . Diagnostic Findings . PG Care Time/CCT Total # of Minutes Spent Total Time Spent with Patient: Total time spent is greater than 50% in coordination of care (as documented) at patient's floor/unit and/or counseling patient: Coding Level of Care Code 73546 IN/OBS CONSULT LVL 3,45M Diagnoses Closed compression fracture of lumbar vertebra S32.000A Encounter type: subsequent encounter Lumbar vertebra fracture level: L1 Back pain of thoracolumbar region M54.50; M54.6 (1) Closed compression fracture of lumbar vertebra Encounter type: subsequent encounter Lumbar vertebra fracture level: L1
--- NOTE | 2023-01-17 14:32 | XRay Report ---
XR thoracolumbar spine 2V HISTORY: 72 years-old Female L1 fracture acute low back pain COMPARISON: CT 01/15/2023, MR lumbar spine 10/26/2022, CT 11/25/2020 TECHNIQUE: 2 views of the thoracolumbar spine FINDINGS: Demineralized appearance of the bones. Subacute L1 burst fracture with 8 mm retropulsion is unchanged . Acute superior endplate compression deformity of the L2 vertebral body demonstrates progressively w orsen vertebral body height loss compared to the 01/15/2023 exam with approximately 4 mm retropulsion. Mild spondylitic spurring with mild to moderate facet arthrosis again noted. IMPRESSION: 1. Unchanged appearance of the subacute L1 burst fracture with 8 mm retropulsion. This demonstrates p rogressively worsened vertebral body height loss compared to the MRI from 10/26/2022. 2. Moderate acute L2 compression fracture with mild retropulsion demonstrates progressive vertebral b ada height loss compared to the 01/15/2023 exam. ACT 112: Negative or not required by law. The above report was generated using voice recognition software. It may contain grammatical, syntax o r spelling errors. Electronically signed by: Taras Clark M.D. 01/17/2023 2:30 PM
--- NOTE | 2023-01-17 15:42 | Communication Note ---
Date of Service: January 17, 2023 By CMS guidelines, a determination that the admission or continued stay is not medically necessary has been made by a member of the UR committee and a physi desire for this hospital stay, therefore a Code 44 will be completed and the Inpatient admission will be changed to outpatient. Na Kiran M.D.
--- NOTE | 2023-01-17 15:51 | Discharge Summary ---
Discharge Summary Date of Service January 17, 2023 Notes For Next Care Provider Follow up with Dr. Franklin of [facility] in 2-3 weeks Needs trial of void after admission to rehab Medication Changes From Visit Oxycodone 5mg po q6h prn severe pain acetaminophen prn Admission HPI Per Admitting Provider 72 YOF with medical history of: Afib (on Eliquis), CVA (lacunar infarcts), OSWALD, GERD, Hypothyroidism, PTSD, Arthritis of knees, Chronic L1 compression fracture. Patient presented to the EMD today via EMS for complains of back pain. Patient states that she has had this pain for many months and has a back fracture, however over the past week it has gotten much worse. This pain has effected her ability to be up and around as well as causing decrease in oral food and liquid intake. She states that she has no appetite and when she does have to get up to get food or water, it hurts too much to finish. She notes that she used to walk with a cane. Patient also stated that she has had numbness and tingling to her left hand only that was in her fingertips up to her wrist, but was noted without weakness or clumsiness. She reports no vision changes, headaches, or other focal weakness or difficulty speaking, or reading/writing. In the EMD the patient had routine labs performed, was given IV Tylenol for pain, which she feels has helped, she also had CT scan of abdomen/pelvis, and head CT performed. Her CT scan of lumbar spine was noted- Vertebral plana at L1 with retropulsion of the vertebral body, which contributes to moderate to severe spinal canal stenosis. Patient will be admitted to medical telemetry for pain control, follow rhythm and neurological status as well as consultation to ortho spine. Currently pain is controlled and numbness of hand has resolved. CODE: DNR/DNI Principal Dx & Hospital Course #1 = Principal Diagnosis (1) Closed compression fracture of body of L1 vertebra: Patient with L1 vertebral fracture which appeared to occur in October- she has had worsening pain over the past few weeks Also with L2 compression fracture no radicular symptoms down legs, no bowel or bladder issues excet urinary retention due to opioid use recently No saddle anesthesia. She is able to ambulate and has no weakness, but rather has severe pain in lower back - She had ortho evaluation on 11/09/[address] Franklin- and was started on oxycodone/calcitonin/and calcium/vit d. - Pain control as follows- Tylenol 650mg po q6 prn, Tramadol 50mg PO q6, Cyclobenzaprine 5mg TID PRN muscle spasms, Oxy IR 5mg PO q6 prn - Brace while out of bed -continue calcitonin nasal spray -seen by Dr. Franklin here, had upright lumbar xrays which show L1 and L2 compression with some retropulsion but he says it appears similar to previous. Given no neural compressive signs/symptoms, ok to avoid surgery at this time, continue medical management, pain control, back bracing. F/u in Ortho office in 2-3 weeks or sooner prn onset of neuro symptoms (2) Urinary retention: had Ballesteros placed on arrival for difficulty voiding likely related to recent opioid use also with constipation contributing continue Ballesteros for now and have trial of void at rehab work on bowel regimen (3) Constipation: 2/2 opioid use continue Miralax, senna did have a BM overnight on 01/16 (4) A-fib: PAF- currently in NSR on Apixaban 5mg PO BID continue metoprolol (5) Cholelithiases: Chronic with normal biliary labs (6) Patellofemoral arthritis of right knee: Chronic- no acute needs - recent injection 12/28/22 (7) Hypothyroidism: Chronic - no acute needs - continue Synthroid (8) Hyperlipidemia: Continue statin (9) Numbness and tingling in left hand: Intermittent and resolved, without any other focal deficits- also in the setting of hypomagnesemia of 1.4 - repleted mag and other electrolytes, symptoms resolved - head CT scan notable for old lacunar infarcts -could also be CTS Plan Dispo-dc to [facility] Discharge Exam Constitutional WD/WN, vitals as above Respiratory normal respiratory effort, lungs clear to auscultation Cardiovascular RRR, no murmur, no edema Gastrointestinal (Abdomen) normal bowel sounds, soft, nontender, no hepatosplenomegaly Neurologic CN's II-XI intact bilaterally, moves all extremities and awake; no focal motor deficits Psychiatric A+Ox3, euthymic affect Updated Medication List Medication Instructions Recorded Confirmed Type cyclobenzaprine 5 mg tablet 5 mg PO TID PRN Muscle Spasm #30 07/20/20 01/15/23 Rx tabs acyclovir 200 mg capsule 200 mg PO 5XD PRN OUTBREAKS #30 01/14/21 01/15/23 Rx caps calcium carbonate 600 mg calcium 600 mg PO BID 04/15/21 01/15/23 History (1,500 mg) tablet (Calcium) cholecalciferol (vitamin D3) 10 10 mcg PO BID 04/15/21 01/15/23 History mcg (400 unit) capsule levalbuterol tartrate 45 See Rx Instructions inhalation 07/27/21 01/15/23 Rx mcg/actuation aerosol inhaler .COMPLEX PRN shortness of breath (Xopenex HFA) or wheezing #15 grams meclizine 25 mg tablet 25 mg PO Q6H PRN Dizziness #90 tabs 03/01/22 01/15/23 Rx apixaban 5 mg tablet (Eliquis) 5 mg PO BID #60 tabs 08/22/22 01/15/23 Rx olopatadine 0.1 % eye drops 1 drp ophthalmic (eye) DAILY #5 mL 09/08/22 01/15/23 Rx atorvastatin 80 mg tablet 80 mg PO HS #90 tabs 10/03/22 01/15/23 Rx omeprazole 40 mg capsule,delayed 40 mg PO QAM #90 caps 10/14/22 01/15/23 Rx release diclofenac sodium 1 % topical gel 4 g topical QID PRN Pain 10/21/22 01/15/23 History levothyroxine 100 mcg tablet 100 mcg PO DAILYBB 10/21/22 01/15/23 History nystatin 100,000 unit/gram topical 1 applic topical BID PRN ABD FOLDS 10/21/22 01/15/23 History cream NEEDED lorazepam 0.5 mg tablet 0.5 mg PO TID PRN anxiety #90 tabs 11/25/22 01/15/23 Rx ondansetron 4 mg disintegrating 4 - 8 mg translingual BID PRN 12/05/22 01/15/23 Rx tablet nausea and vomiting #30 tabs calcitonin (salmon) 200 1 spray intranasal (ALT) DAILY 12/23/22 01/15/23 Rx unit/actuation nasal spray #3.7 mL metoprolol succinate 25 mg 25 mg PO HS #90 tabs 01/06/23 01/15/23 Rx tablet,extended release 24 hr tramadol 50 mg tablet 50 mg PO Q6H PRN SEVERE PAIN #15 01/13/23 01/15/23 Rx tabs fluticasone propionate 50 2 spray intranasal DAILY PRN 01/15/23 01/15/23 History mcg/actuation nasal allergies spray,suspension acetaminophen 325 mg tablet 650 mg PO Q4H PRN mild-moderate 01/17/23 Rx pain #60 tabs oxycodone 5 mg tablet 5 mg PO Q6 PRN severe pain #15 tabs 01/17/23 Rx polyethylene glycol 3350 17 gram 17 gm PO DAILY PRN Constipation 01/17/23 01/15/23 Rx oral powder packet (Miralax) #30 ea sennosides 8.6 mg-docusate sodium 1 tab PO HS #30 tabs 01/17/23 Rx 50 mg tablet (Senokot-S) Hospital Stay Data Consultations 01/16/23 01:21 ED Decision to Admit Stat 01/16/23 04:40 Consult Orthopedic Spine Surgery Routine Diagnostic Imagining Performed 01/15/23 22:11 CT head/brain wo con Stat 01/15/23 22:17 CT abd pelvis wo con Stat 01/15/23 23:10 CT lumbar spine wo con Stat Pending Results Patient Have Any Pending Studies at Discharge: No Discharge Instructions Given to Patient (Per Discharging Provider) Continue taking the tramadol and oxycodone as needed for moderate or severe pain. Please wear your back brace at all times when out of bed. Follow up with Dr. Franklin in the [facility]opedics Sp[facility] clinic in 2-3 weeks or sooner as needed if you develop neurological symptoms as we discussed. Total Time Total Time Spent Total Time Spent (In Minutes): 35 min Coding Level of Care Code 26153 INP/OBS DISCH >30 MIN Diagnoses Closed compression fracture of body of L1 vertebra S32.010A Urinary retention R33.9 Constipation K59.00 A-fib I48.91 Cholelithiases K80.20 Patellofemoral arthritis of right knee M17.11 Hypothyroidism E03.9 Hyperlipidemia E78.5 Numbness and tingling in left hand R20.0; R20.2
--- NOTE | 2023-01-23 20:30 | Billing Data ---
Date of Service January 23, 2023 Coding Level of Care Code 60660 INT INP/OBS CARE
== END 2023-01-17 17:39 ==
LOC: ED 20:52 → SUATTDRO 01-16 02:12 → 2N 01-16 02:12 → INTOOBSV 01-16 02:12 → 2N 01-16 04:03 → 3W 01-16 23:29
DX: X58.XXXA Exposure to other specified factors, initial encounter; Z79.01 Long term (current) use of anticoagulants; Z91.030 Bee allergy status; S32.010A Wedge compression fracture of first lumbar vertebra, initial encounter for closed fracture; K80.20 Calculus of gallbladder without cholecystitis without obstruction; Z86.73 Personal history of transient ischemic attack (TIA), and cerebral infarction without residual deficits; Z91.018 Allergy to other foods; Z66 Do not resuscitate; M17.11 Unilateral primary osteoarthritis, right knee; K59.03 Drug induced constipation; E78.5 Hyperlipidemia, unspecified; R33.0 Drug induced retention of urine; E03.9 Hypothyroidism, unspecified; I48.0 Paroxysmal atrial fibrillation; Z91.041 Radiographic dye allergy status; E83.42 Hypomagnesemia; Z79.899 Other long term (current) drug therapy; I48.91 Unspecified atrial fibrillation; Z79.890 Hormone replacement therapy; Z79.82 Long term (current) use of aspirin

== ENCOUNTER 2024-01-29 12:25 | Inpatient (IN) ==
--- NOTE | 2024-01-29 13:04 | Emergency Department Note ---
History of Present Illness General Chief complaint: Back Injury/Pain Time Seen by Provider: 01/29/24 12:54 History of Present Illness Maximum Pain Intensity: 9 NAME: ADOLFO THIBODEAUX AGE: 74 SEX: F : 1950 ARRIVES VIA: Ambulance INFORMANT: Patient ED PROVIDER(S): JENNIFER Montero, Sierra Jerome MD The patient is a 74-year-old female who arrives to the emergency department for evaluation of lumbar back pain and no bowel movement for the last 3 to 4 weeks. She reports she fell in December and sustained 3 lumbar fractures. She reports she feels a sensation of pressure on her spine, which she associates with not having a bowel movement. The patient also reports she is incontinent of urine, which is new. She denies any radiation of the pain, however she states she is having nausea without vomiting. She reports the pain is in the bilateral low back, and extends up into the mid back. She denies any urinary issues. She reports ambulation is extremely difficult due to the pain. She states she currently follows with Dr. Franklin from orthopedic spine. Home Medications Medication Instructions Recorded Confirmed Type olopatadine 0.1 % eye drops 1 drp ophthalmic (eye) DAILY #5 mL 09/08/22 01/29/24 Rx calcitonin (salmon) 200 1 spray intranasal (ALT) DAILY 12/23/22 01/29/24 Rx unit/actuation nasal spray #3.7 mL fluticasone propionate 50 2 spray intranasal DAILY PRN 01/15/23 01/29/24 History mcg/actuation nasal allergies spray,suspension polyethylene glycol 3350 17 gram 17 gm PO DAILY PRN Constipation 01/17/23 01/29/24 Rx oral powder packet (Miralax) #30 ea sennosides 8.6 mg-docusate sodium 1 tab PO HS #30 tabs 01/17/23 01/29/24 Rx 50 mg tablet (Senokot-S) ondansetron 4 mg disintegrating 4 - 8 mg (1 - 2 x 4 mg) 02/22/23 01/29/24 Rx tablet translingual BID PRN nausea and vomiting #30 tabs TENS units #1 ea 02/28/23 01/29/24 Rx TENS unit and electrodes combo pack #1 ea 04/03/23 01/29/24 Rx atorvastatin 80 mg tablet 80 mg PO HS #90 tabs 04/26/23 01/29/24 Rx magnesium oxide 400 mg PO DAILY #30 tabs 05/29/23 01/29/24 Rx levalbuterol tartrate 45 See Rx Instructions inhalation 07/25/23 01/29/24 Rx mcg/actuation aerosol inhaler .COMPLEX PRN shortness of breath (Xopenex HFA) or wheezing #15 grams nystatin 100,000 unit/gram topical 1 applic topical BID PRN ABD FOLDS 08/07/23 01/29/24 Rx cream NEEDED #30 grams cyclobenzaprine 5 mg tablet 5 mg PO TID PRN muscle spasm #30 09/13/23 01/29/24 Rx tabs Forteo 20 mcg/dose (600 mcg/2.4 20 mcg (0.08 mL) subcut DAILY #2.4 10/05/23 01/29/24 Rx mL) subcutaneous pen injector mL (teriparatide) apixaban 5 mg tablet (Eliquis) 5 mg PO BID #60 tabs 10/07/23 01/29/24 Rx levothyroxine 125 mcg tablet 125 mcg PO DAILYBB #90 tabs 10/07/23 01/29/24 Rx duloxetine 60 mg capsule,delayed 60 mg PO DAILY #90 caps 11/15/23 01/29/24 Rx release lorazepam 0.5 mg tablet 0.5 mg PO TID anxiety #90 tabs 11/22/23 01/29/24 Rx gabapentin 400 mg capsule 400 mg PO BID #60 caps 12/26/23 01/29/24 Rx lidocaine 4 % topical patch 1 patch topical QID PRN pain #60 ea 12/26/23 01/29/24 Rx (Salonpas (lidocaine)) pantoprazole 40 mg tablet,delayed 40 mg PO QAM #90 tabs 12/26/23 01/29/24 Rx release acetaminophen 500 mg tablet 500 mg PO Q4 PRN mild-moderate pain 01/29/24 01/29/24 History benzonatate 100 mg capsule 100 - 200 mg PO TID PRN Cough 01/29/24 01/29/24 History calcium carbonate (Tums) 1 tab PO DAILY 01/29/24 01/29/24 History ergocalciferol (vitamin D2) 1,250 1,250 mcg PO WK 01/29/24 01/29/24 History mcg (50,000 unit) capsule (Vitamin D2) metoprolol succinate 25 mg 37.5 mg PO HS 01/29/24 01/29/24 History tablet,extended release 24 hr omeprazole 40 mg capsule,delayed 40 mg PO QAM 01/29/24 01/29/24 History release Allergies Allergy/AdvReac Type Severity Reaction Status Date / Time bee venom protein (honey bee) Allergy Severe THROAT Verified 12/26/23 09:10 CLOSES/HIVES Iodinated Contrast Media Allergy Intermediate HIVES Verified 12/26/23 09:10 aspirin AdvReac Unknown CONTRAINDICATED Verified 12/26/23 09:10 WITH BLOOD THINNERS ibuprofen AdvReac Unknown CONTRAINDICATED Verified 12/26/23 09:10 WITH BLOOD THINNERS mushroom AdvReac Unknown Unknown Verified 12/26/23 09:10 pepper (genus Capsicum) AdvReac Unknown Unknown Verified 12/26/23 09:10 Past Med/Surg History Problem List (Updated 01/31/24 @ 23:25 by JENNIFER Traylor) Weakness (Acute) Urinary incontinence (Acute) Lumbar back pain (Acute) Lower abdominal pain (Acute) Dehydration (Acute) Acute mid back pain (Acute) Osteoporosis (Acute) Back pain of thoracolumbar region Closed compression fracture of lumbar vertebra (Acute) L4 Closed compression fracture of body of L1 vertebra (Acute 10/21/22) L1 and L2 Patellofemoral arthritis of right knee Patellofemoral arthritis of left knee Cholelithiases Mixed conductive and sensorineural hearing loss of right ear with restricted hearing of left ear Cholelithiasis (Chronic) Bee sting reaction (Chronic) Anxiety (Chronic) Adverse anesthesia outcome Hard time waking up Chronic rhinitis Right chronic serous otitis media ETD (eustachian tube dysfunction) right Arthritis Prediabetes (Chronic) Post traumatic stress disorder (PTSD) (Chronic) Pharyngitis, chronic (Chronic) Learning disability (Chronic) Laryngitis, chronic (Chronic) Hypothyroidism (Chronic 10/29/12) Hyperlipidemia (Chronic 10/29/12) History of cerebrovascular accident (Chronic) Gastroesophageal reflux disease (Chronic 10/29/12) Chronic allergic conjunctivitis (Chronic) Constipation (Chronic) Cystocele, midline (Chronic) Diaphragmatic hernia (Chronic) Gastroparesis (Chronic) HSV infection (Chronic) High triglycerides (Chronic) Low hemoglobin and low hematocrit (Chronic) Primary snoring (Chronic) Rectocele (Chronic) Rosacea (Chronic) Tension headache (Chronic) Vitamin D deficiency (Chronic) A-fib (Chronic) Medical History Numbness and tingling in left hand Left knee pain Stroke Conductive hearing loss of both ears SVT (supraventricular tachycardia) Chest pain (05/18/14) Surgical History Tympanic tube insertion 2019. History of tonsillectomy History of hysterectomy History of surgery Vaginal Reconstruction - 2012 History of colonoscopy No pertinent past surgical history Family History Father Colorectal cancer Coronary heart disease Prostate cancer Cancer Aunt Diabetes Mother Myocardial infarction Coronary heart disease Stroke Daughter Crohn's disease Asthma Son Allergic rhinitis Family/Other Anemia Child Other Family history non-contributory Denies family history of Ovarian cancer Breast cancer Social History Smoking Status: Former smoker Second Hand Exposure: No; Do You Dip or Chew Tobacco: No; Hx Alcohol Use: No Hx Substance Use: No Preferred Language: Ukrainian Communication Ability: Effective Communication Ability Comment: poor reading ability Visual Impairment: No Limitations Hearing Ability: Normal 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 Beliefs That Will Affect Care: None marital status: Current Living Situation: Spouse Current Living Situation Comment: pt reported she lives with her however he is not helpful current occupational status: retired How many Children do You have: 3 Feels Safe at Home: Yes Safety Concerns: Feels Safe At This Time Childhood Exposure to Second-Hand Smoke: Yes Diet: regular caffeine: Yes (Soda - occasional) during the past year weight has: remained stable Dental Care, Regularly: No Physical Activity Frequency: Does not Exercise Seatbelt Use: always Sunscreen Use: Yes Assistive Devices: Cane, Walker and Wheelchair Assistive Devices Comment: pt uses walker at baseline however is unable to ambulate at this time Physical Exam Vital Signs Vital Signs - 24 hr 01/29/24 12:30 01/29/24 12:40 01/29/24 12:48 Temperature 36.7 C 36.7 C Temperature Source Oral Oral Pulse Rate 85 85 Pulse Rate [Apical] 82 Respiratory Rate 20 35 H Respiratory Effort / Characteristics Non-Labored Spontaneous Respiratory Depth Normal Blood Pressure 136/78 Blood Pressure [Right Arm] 129/71 Blood Pressure Mean 97 Blood Pressure Mean [Right Arm] 90 Pulse Oximetry 94 92 Oxygen Delivery Method Room Air Room Air Sepsis Recent Fever Within 48 Hours No Sepsis New/Unexplained Change in Mental Status N/A Sepsis Action Taken by Nursing No Action Required VITALS: Vitals are noted on the nurse's note and reviewed by myself. Vital signs stable. GENERAL: 74-year-old female, in no acute distress, nondiaphoretic, well- developed well-nourished. SKIN: The skin was without rashes, erythema, edema, or bruising. HEAD: Normocephalic atraumatic. NECK: Supple without nuchal rigidity. Cervical spine is nontender. No JVD. HEART: Regular rate and rhythm without murmurs gallops or rubs. LUNGS: Clear to auscultation bilaterally without wheezes, rales or rhonchi. No retractions or accessory muscle use. ABDOMEN: Positive bowel sounds x 4. Soft, nontender, without masses or organomegaly. Hodgson sign negative. No guarding or rebound tenderness. MUSCULOSKELETAL: Bilateral positive straight leg raise, bilateral lower extremity weakness 4/5, no loss of sensation, strength 5/5 with dorsiflexion/plantarflexion, capillary refill <3. Tenderness to palpation bilateral lumbar spine, no paraspinal muscle spasm present. NEURO: Patient was alert and oriented to person place and time. No focal neurological deficits. Course Administered Medications Acetaminophen (Acetaminophen 325 Mg Tab) 650 mg PO Q4H PRN PRN Reason: Pain or Fever Stop: 02/28/24 22:21 Last Admin: 01/31/24 16:25 Dose: 650 mg Documented By: Admin: 01/31/24 08:42 Dose: 650 mg Documented By: Admin: 01/30/24 09:17 Dose: 650 mg Documented By: EAN Atorvastatin Calcium (Atorvastatin 40 Mg Tab) 80 mg PO HS [facility] Stop: 02/28/24 22:21 Last Admin: 01/31/24 20:16 Dose: 80 mg Documented By: Admin: 01/30/24 20:34 Dose: 80 mg Documented By: [id number] Admin: 01/29/24 23:08 Dose: 80 mg Documented By: [id number] Calcitonin [place] (Calcitonin [place] Na 200 Iu/Ac 3.7 Ml Btl) 1 sprays NA DAILY EMA Stop: 02/29/24 08:59 Last Admin: 01/31/24 08:41 Dose: 1 sprays Documented By: Admin: 01/30/24 09:13 Dose: Not Given Documented By: EAN Calcium Carbonate (Calcium Carbonate 1,250 Mg/5 Ml Udc) 1,250 mg PO BID EMA Stop: 02/28/24 22:21 Last Admin: 01/31/24 20:16 Dose: 1,250 mg Documented By: Admin: 01/31/24 08:41 Dose: 1,250 mg Documented By: Admin: 01/30/24 20:33 Dose: 1,250 mg Documented By: [id number] Admin: 01/30/24 09:11 Dose: 1,250 mg Documented By: Admin: 01/29/24 23:09 Dose: 1,250 mg Documented By: [id number] Cyclobenzaprine HCl (Cyclobenzaprine Hcl 5 Mg Tab) 5 mg PO TID PRN PRN Reason: muscle spasm Stop: 02/29/24 03:00 Last Admin: 01/31/24 14:35 Dose: 5 mg Documented By: Admin: 01/30/24 09:12 Dose: 5 mg Documented By: EAN Duloxetine HCl (Duloxetine Hcl 60 Mg Cap) 60 mg PO DAILY EMA Stop: 02/29/24 08:59 Last Admin: 01/31/24 08:41 Dose: 60 mg Documented By: Admin: 01/30/24 09:11 Dose: 60 mg Documented By: EAN Gabapentin (Gabapentin 400 Mg Cap) 400 mg PO BID EMA Stop: 02/28/24 22:21 Last Admin: 01/31/24 20:17 Dose: 400 mg Documented By: Admin: 01/31/24 08:41 Dose: 400 mg Documented By: Admin: 01/30/24 20:32 Dose: 400 mg Documented By: [id number] Admin: 01/30/24 09:13 Dose: 400 mg Documented By: Admin: 01/29/24 23:08 Dose: 400 mg Documented By: [id number] Heparin Sodium (Porcine) (Heparin Sod 5,000 Unit/0.5 Ml Vial) 5,000 units SQ Q12 [facility] Stop: 02/29/24 08:59 Last Admin: 01/31/24 20:16 Dose: 5,000 units Documented By: Admin: 01/31/24 08:41 Dose: 5,000 units Documented By: JUAN CARLOSK Admin: 01/30/24 20:34 Dose: 5,000 units Documented By: [id number] Admin: 01/30/24 09:09 Dose: 5,000 units Documented By: EAN Acetaminophen (Ofirmev) 1,000 mg in 100 mls @ 400 mls/hr IV Q8H PRN PRN Reason: Fever/Mild Pain (Pain 1,2,3) Stop: 02/01/24 20:59 Last Infusion: 01/31/24 20:45 Dose: Infused Documented By: CJDilia Admin: 01/31/24 20:15 Dose: 200 mls/hr Documented By: Infusion: 01/30/24 22:20 Dose: Infused Documented By: [id number] Admin: 01/30/24 20:25 Dose: 400 mls/hr Documented By: [id number] Infusion: 01/29/24 23:09 Dose: Infused Documented By: [id number] Admin: 01/29/24 22:47 Dose: 400 mls/hr Documented By: [id number] Lorazepam 0.5 mg/ Syringe 0.5 mls @ 2 mls/min IV ONE PRN PRN Reason: Pre-MRI Stop: 02/28/24 17:50 Last Admin: 01/29/24 18:32 Dose: 2 mls/min Documented By: SDK Levothyroxine Sodium (Levothyroxine Sodium 125 Mcg Tablet) 125 mcg PO DAILYBB [facility] Stop: 02/29/24 06:29 Last Admin: 01/31/24 05:28 Dose: 125 mcg Documented By: [id number] Admin: 01/30/24 05:53 Dose: 125 mcg Documented By: [id number] Lorazepam (Lorazepam 0.5 Mg Tab) 0.5 mg PO TID [facility] Stop: 02/28/24 22:21 Last Admin: 01/31/24 20:16 Dose: 0.5 mg Documented By: [email or web address] Admin: 01/31/24 14:34 Dose: 0.5 mg Documented By: Admin: 01/31/24 08:44 Dose: 0.5 mg Documented By: Admin: 01/30/24 20:31 Dose: 0.5 mg Documented By: [id number] Admin: 01/30/24 14:37 Dose: 0.5 mg Documented By: Admin: 01/30/24 09:11 Dose: 0.5 mg Documented By: Admin: 01/29/24 22:46 Dose: 0.5 mg Documented By: [id number] Metoprolol Succinate (Metoprolol Succ 25mg Ext Rel Tab) 37.5 mg PO HS [facility] Stop: 02/29/24 20:59 Last Admin: 01/30/24 20:31 Dose: 37.5 mg Documented By: [id number] Miscellaneous (Remove Lidoderm Patch) 1 each N/A DAILY@2100 [facility] Stop: 02/28/24 20:59 Last Admin: 01/30/24 20:34 Dose: 1 each Documented By: [id number] Admin: 01/29/24 23:08 Dose: 1 each Documented By: [id number] Karolynaneous (Olopatadine 0.1 % Drops: Order Awaiting Action) 1 each N/A QS [facility] Stop: 03/01/24 00:00 Last Admin: 01/31/24 16:22 Dose: Not Given Documented By: Admin: 01/31/24 09:08 Dose: Not Given Documented By: Admin: 01/31/24 01:20 Dose: Not Given Documented By: [id number] Morphine Sulfate (Morphine Sulfate 2 Mg/Ml Carp) 2 mg IV Q4H PRN PRN Reason: pain, second line Stop: 02/12/24 17:48 Last Admin: 01/31/24 05:27 Dose: 2 mg Documented By: [id number] Admin: 01/30/24 05:53 Dose: 2 mg Documented By: [id number] Admin: 01/29/24 22:27 Dose: 2 mg Documented By: [id number] Pantoprazole Sodium (Pantoprazole 40 Mg Tab) 40 mg PO QAM [facility] Stop: 02/29/24 08:59 Last Admin: 01/31/24 08:40 Dose: 40 mg Documented By: Admin: 01/30/24 09:12 Dose: 40 mg Documented By: EAN Polyethylene Glycol (Polyethylene (Miralax) 17 Gm Pack) 17 gm PO DAILY [facility] Stop: 02/29/24 08:59 Last Admin: 01/31/24 08:42 Dose: 17 gm Documented By: Admin: 01/30/24 09:12 Dose: 17 gm Documented By: EAN Discontinued Medications Hydromorphone HCl (Hydromorphone Inj 0.5 Mg/0.5 Ml Syr) 0.5 mg IV NOW STA Stop: 01/29/24 19:25 Last Admin: 01/29/24 19:32 Dose: 0.5 mg Documented By: HB Sodium Chloride (Nss) 1,000 mls @ 999 mls/hr IV .Q1H1M ONE Stop: 01/29/24 14:12 Last Infusion: 01/29/24 15:46 Dose: Infused Documented By: Admin: 01/29/24 14:02 Dose: 999 mls/hr Documented By: LORA Acetaminophen (Ofirmev) 1,000 mg in 100 mls @ 400 mls/hr IV NOW STA Stop: 01/29/24 13:26 Last Admin: 01/29/24 13:49 Dose: Not Given Documented By: LORA Lactated Ringer's (Lr) 500 mls @ 999 mls/hr IV .Q31M ONE Stop: 01/29/24 18:19 Last Infusion: 01/29/24 18:35 Dose: Infused Documented By: Admin: 01/29/24 18:02 Dose: 999 mls/hr Documented By: TSERING Lactated Ringer's (Lr) 500 mls @ 999 mls/hr IV .Q31M ONE Stop: 01/30/24 14:59 Last Infusion: 01/30/24 15:46 Dose: Infused Documented By: Admin: 01/30/24 15:02 Dose: 999 mls/hr Documented By: EAN Lactated Ringer's (Lr) 500 mls @ 999 mls/hr IV .Q31M ONE Stop: 01/30/24 17:04 Last Infusion: 01/30/24 20:22 Dose: Infused Documented By: [id number] Admin: 01/30/24 17:28 Dose: 999 mls/hr Documented By: EAN Lidocaine (Lidocaine 5% 1 Patch) 1 patch TD NOW STA Stop: 01/29/24 17:50 Last Admin: 01/29/24 18:02 Dose: 1 patch Documented By: TSERING Metoprolol Tartrate (Metoprolol Tartrate 25 Mg Tab) 12.5 mg PO ONE STA Stop: 01/30/24 16:37 Last Admin: 01/30/24 17:28 Dose: 12.5 mg Documented By: EAN Morphine Sulfate (Morphine Sulfate 2 Mg/Ml Carp) 2 mg IV NOW STA Stop: 01/29/24 14:21 Last Admin: 01/29/24 14:26 Dose: 2 mg Documented By: LORA Morphine Sulfate (Morphine Sulfate 4 Mg/Ml 1 Ml Carp\Vial) 4 mg IV NOW STA Stop: 01/29/24 16:33 Last Admin: 01/29/24 16:35 Dose: 4 mg Documented By: TSERING Ondansetron HCl (Ondansetron Inj 2 Mg/Ml 2 Ml Vial) 4 mg IV NOW STA Stop: 01/29/24 14:21 Last Admin: 01/29/24 14:26 Dose: 4 mg Documented By: LORA Medical Decision Making Differential Diagnosis Musculoskeletal, disc herniation, fracture, metastatic disease, cord compression, discitis, sciatica, cauda equina, infection, aortic disease, renal colic, gastrointestinal, as well as other pathologies. Medical Records Attestation: I reviewed the patient's medical records. Home Medications Current Medication List: was personally reviewed by me Laboratory Data Attestation: I reviewed the patient's lab results. CBC shows no leukocytosis, with a stable hemoglobin and hematocrit, CMP is unremarkable, urinalysis negative for infection. 01/31/24 05:30 01/31/24 15:32 Lab Results 01/29/24 01/29/24 Range/Units 13:55 16:31 WBC 8.71 (4.8-10.8) K/ul RBC 4.21 (4.20-5.40) M/uL Hgb 13.4 (12.0-16.0) g/dl Hct 39.5 (37.0-47.0) % MCV 93.8 (80.0-100.0) fL MCH 31.8 (25.0-34.0) pg MCHC 33.9 (32.0-36.0) g/dL RDW Std Deviation 42.5 (36.4-46.3) fL RDW Coeff of Mini 12.4 (11.5-14.5) % Plt Count 191 (130-400) K/uL MPV 9.3 L (9.4-12.4) fL Immature Gran % (Auto) 0.5 % Neut % (Auto) 59.5 % Lymph % (Auto) 30.7 % [place] % (Auto) 8.2 % Eos % (Auto) 0.9 % Baso % (Auto) 0.2 % Neut # (Auto) 5.19 (1.40-6.50) K/uL Lymph # (Auto) 2.67 (1.20-3.40) K/uL [place] # (Auto) 0.71 H (0.11-0.59) K/uL Eos # (Auto) 0.08 (0.00-0.50) K/uL Baso # (Auto) 0.02 (0.00-0.20) K/uL Immature Gran # (Auto) 0.04 (0.01-0.20) K/uL Sodium 135 L (136-145) mmol/L Potassium 3.5 (3.5-5.1) mmol/L Chloride 103 (98-107) mmol/L Carbon Dioxide 24 (21-32) mmol/L Anion Gap 8 (3-11) BUN 13 (6-23) mg/dl Creatinine 0.76 (0.6-1.2) mg/dl Est Cr Clr Drug Dosing 59.6 ml/min Est GFR ( Amer) 89.6 ml/min Est GFR (Non-Af Amer) 77.3 ml/min BUN/Creatinine Ratio 17.1 (10-20) Glucose 129 H (70-99(Fasting)) mg/dl Calcium 9.0 (8.6-10.3) mg/dl Total Bilirubin 0.6 (0.2-1.0) mg/dl AST 18 (13-39) U/L ALT 15 (7-52) U/L Alkaline Phosphatase 86 (34-104) U/L Total Protein 6.7 (6.0-8.3) gm/dl Albumin 4.0 (3.4-5.0) gm/dl Globulin 2.7 (2.5-4.0) gm/dl Albumin/Globulin Ratio 1.5 (0.9-2) Urine Color Yellow Urine Appearance Clear (Clear) Urine pH 7.0 (4.5-7.5) Ur Specific [place] 1.008 (1.000-1.030) Urine Protein Negative (Negative) Urine Glucose (UA) Negative (Negative) Urine Ketones Negative (Negative) Urine Blood Negative (Negative) Urine Nitrite Negative (Negative) Urine Bilirubin Negative (Negative) Urine Urobilinogen Negative (Negative) Ur Leukocyte Esterase Negative (Negative) Blood Pressure Blood Pressure Findings: Normal blood pressure MDM Narrative The patient is a pleasant 74-year-old female who arrives to the emergency department for the above-stated complaint. Upon examination the patient has significant lumbar spinal pain, with bilateral lower extremity weakness and ambulatory dysfunction. The patient reports to history of a previous back injury in December of this year with 3 fractured vertebrae. Due to the patient's complaint of no bowel movement, as well as increasing lumbar back pain CT imaging of the abdomen and pelvis as well as the lumbar spine was obtained. CT imaging of the abdomen and pelvis showed no acute intra-abdominal pathology, however CT imaging of the lumbar spine showed burst type compression deformities of L2, L3, and L4. Orthopedic spine consult from Dr. Franklin was obtained, due to the patient's inability to ambulate. He reports he had seen the patient not long ago, and she was able to walk comfortably at that time. Due to the patient's acute change in status, admission to the hospital was indicated. The patient was provided IV acetaminophen, IV morphine, IV Zofran, and IV fluids. I spoke with Dr. Palacios, from the [facility] hospitalist group who agreed to accept the patient for admission. Please refer to his documentation, as well as Dr. Franklin documentation for further patient workup and care. The patient's case was discussed with Dr. Jerome, who agreed with my evaluation and treatment plan. Continuous voice over announcer: Order was placed for continuous voice over announcer. Patient was placed on the voice over announcer. Patient was noted to be in normal sinus rhythm at an initial rate of 82 bpm. Impression & Plan Lumbar back pain, Urinary incontinence, Weakness Discharge Plan Visit Data Chief Complaint: Back Injury/Pain ED Provider: Sierra Jerome ED Midlevel Provider: Kim Hdz Discharge Problem: Lumbar back pain, Urinary incontinence, Weakness Patient Disposition: Admitted As Inpatient Discharge Instructions Interventions: ED Discharge Assessment Last Done: 01/29/24 22:03 Discharge Problem: Urinary incontinence Qualifiers: Urinary Incontinence type: unspecified incontinence Qualified Code(s): R32 - Unspecified urinary incontinence
[2024-01-29] MEDS: ACETAMINOPHEN 1,000 MG/100 ML VIAL IV STA (13:49)
--- NOTE | 2024-01-29 14:01 | CT Scan Report ---
CT OF THE ABDOMEN AND PELVIS WITHOUT CONTRAST CLINICAL HISTORY: Abdominal pain. No bowel movement. COMPARISON STUDY: CT of the abdomen pelvis January 21, 2024. TECHNIQUE: Axial images of the abdomen and pelvis were obtained without IV contrast. Images were revi ewed in the axial, sagittal, and coronal planes. Automated exposure control was utilized for the moshe dy. A dose lowering technique was utilized adhering to the principles of ALARA. FINDINGS: Please note that the lumbar spine CT will be reported separately. There are trace bilateral pleural fusions. Subpleural opacities within the lower lungs favor atelectasis. No pneumatosis, free air or portal venous gas is present. There are multiple calcified gallstones within the gallbladder. There is no pericholecystic infiltration. Unenhanced images of the liver, spleen, adrenal glands and kidneys are unremarkable. There is no hydronephrosis. Pancreas is unremarkable on unenhanced exam. T here were no urinary calculi. There is no evidence for a bowel obstruction. There is a moderate amoun t of poorly formed stool within the right colon. There is no significant stool within the rectum. No abdominal or pelvic lymphadenopathy is present. T12 compression fracture is again noted. Vertebral jose alfredo dy height loss has increased since CT of January 21, 2024. The appearance of L1, L2, L3 and L4 compressi on fractures is unchanged since prior CT. No acute fractures are identified. There are no suspicious lesions within the visualized skeletal structures. IMPRESSION: 1. No evidence for a bowel obstruction. Moderate amount of poorly formed stool within the right colon . 2. Cholelithiasis. No evidence for acute cholecystitis. 3. No urinary calculi or hydronephrosis. 4. Multiple thoracolumbar spine compression fractures, as described above. These were present on CT o f January 21, 2024. Increase in T10 vertebral body height loss since prior exam. 5. Trace bilateral pleural effusions. ACT 112: Negative or not required by law. Electronically signed by: Joshua Winston M.D. 01/29/2024 2:00 PM
[2024-01-29] MEDS: SODIUM CHLORIDE 0.9% 1,000 ML IV ONE (14:02)
[2024-01-29 14:11] LABS: Basophils # (auto) 0.02 K/uL (0.00-0.20); Basophils % (auto) 0.2 %; Eosinophils # (auto) 0.08 K/uL (0.00-0.50); Eosinophils % (auto) 0.9 %; Hematocrit (blood only) 39.5 % (37.0-47.0); Hemoglobin 13.4 g/dl (12.0-16.0); Immature Granulocytes # (auto) 0.04 K/uL (0.01-0.20); Immature Granulocytes % (auto) 0.5 %; Lymphocytes # (auto) 2.67 K/uL (1.20-3.40); Lymphocytes % (auto) 30.7 %; Mean Corpuscular Hemoglobin 31.8 pg (25.0-34.0); Mean Corpuscular Hgb Conc 33.9 g/dL (32.0-36.0); Mean Corpuscular Volume 93.8 fL (80.0-100.0); Mean Platelet Volume 9.3 fL (9.4-12.4); Monocytes # (auto) 0.71 K/uL (0.11-0.59); Monocytes % (auto) 8.2 %; Neutrophils # (auto) 5.19 K/uL (1.40-6.50); Neutrophils % (auto) 59.5 %; Platelet Count 191 K/uL (130-400); RDW Coefficient of Variation 12.4 % (11.5-14.5); RDW Standard Deviation 42.5 fL (36.4-46.3); Red Blood Count 4.21 M/uL (4.20-5.40); White Blood Count 8.71 K/ul (4.8-10.8)
[2024-01-29] MEDS: ONDANSETRON INJ 2 MG/ML 2 ML VIAL IV STA (14:26)
[2024-01-29] MEDS: MoRPHine SULFATE 2 MG/ML CARP IV STA (14:26)
[2024-01-29 14:30] LABS: Albumin Globulin Ratio 1.5 (0.9-2); BUN Creatinine Ratio 17.1 (10-20); Bilirubin,Total 0.6 mg/dl (0.2-1.0); Creatinine Clr Calc Pharmacy 59.6 ml/min; Est GFR (African American) 89.6 ml/min; Est GFR (Non-African American) 77.3 ml/min; Globulin 2.7 gm/dl (2.5-4.0); Potassium 3.5 mmol/L (3.5-5.1); Total Protein 6.7 gm/dl (6.0-8.3)
--- NOTE | 2024-01-29 14:53 | Emergency Department Note ---
ED Visit Note I was consulted by the Advanced Practice Provider. I personally made/approved the management plan and take responsibility for the patient management. I performed a substantive portion of the visit. This includes the aspects of: [-History/Physical] [-MDM] .
--- NOTE | 2024-01-29 14:58 | CT Scan Report ---
CT SCAN OF THE LUMBAR SPINE WITHOUT IV CONTRAST CLINICAL HISTORY: Low back pain. COMPARISON STUDY: CT scan of the lumbar spine dated 01/15/2023. Abdominal CT dated 01/21/2024. TECHNIQUE: CT scan of the lumbar spine is performed from the lower thoracic spine to the sacrum. Imag es are reviewed in the axial, sagittal, and coronal planes. IV contrast was not administered for this examination. A dose lowering technique was utilized adhering to the principles of ALARA. CT DOSE: 1340.73 mGy.cm FINDINGS: The skeletal structures are osteopenic. There is a severe chronic compression deformity of L1. Fragments at this level are retropulsed by up to 9 mm. Again seen are subacute burst type dania constantine deformities of L2, L3, and L4. These are unchanged from the 01/21/[address] scan. Fragme nts are retropulsed at all levels by up to 8 mm. This causes at least moderate central canal stenosis at L4. No new fracture is identified. Anterior and lateral marginal osteophytes are seen throughout. The transverse and spinous processes appear intact. There is no spondylolysis. No lytic or blastic l esion is seen. There is mild degenerative disc space narrowing. The visualized sacrum and bony pelvis appear intact. There is fatty atrophy of the paraspinous musculature. No retroperitoneal lymphadenop athy is seen. IMPRESSION: 1. There is unchanged appearance of subacute-appearing burst type compression deformities of L2, L3, and L4 as compared to the 01/21/[address] 2. Fragments are retropulsed at all levels. These contribute to moderate central canal stenosis at L3 -L4. 3. No new fracture is identified. 4. Additional findings as above. CT 112: Negative or not required by law. Dictated: 01/29/2024 2:08 PM Transcribed: 01/29/2024 2:18 PM Gómez [id number] [email or web address] Electronically signed by: Danie Salazar M.D. 01/29/2024 2:57 PM
[2024-01-29] MEDS: MoRPHine SULFATE 4 MG/ML 1 ML CARP\\VIAL IV STA (16:35)
[2024-01-29 16:44] LABS: Appearance Urine Clear (Clear); Bilirubin Urine Negative (Negative); Blood Urine Negative (Negative); Color Urine Yellow; Glucose Urine UA Negative (Negative); Ketones Urine Negative (Negative); Leukocyte Esterase Urine Negative (Negative); Nitrite Urine Negative (Negative); Protein Urine Negative (Negative); Specific Gravity Urine 1.008 (1.000-1.030); Urobilinogen Urine Negative (Negative)
--- NOTE | 2024-01-29 17:12 | History & Physical Report ---
Date of Service January 29, 2024 Assessment & Plan (1) Closed compression fracture of lumbar vertebra: Plan: Severe back pain Has had constipation, and voided today but is not having urinary retention while in the ER. No saddle anesthesia. No lower extremity weakness. Orthospine consulted. CTlumbar spine: Unchanged appearance of subacute appearing burst type compression deformities at L2E5-T6 compared to 01/21/2024, retropulsed fragments at all levels approximately 8 mm and moderate canal stenosis is noted at L3-L4. CTA/P: Multiple spinal compression fractures as noted above, and additionally T12 compression fracture redemonstrated and with loss of height compared to prior exam. Trace bilateral pleural effusions No leukocytosis Patient is with constipation. No urinary symptoms Lumbar MRI: A T10 vertebral acute/subacute fracture with loss of 50-60% body height. A L1 vertebra plana with posterior subluxation of the superior endplate and moderate central canal stenosis. L2-L4 levels chronic vertebral compression fractures with loss of 60-80% body heights. Orthospine consulted, following Continue multimodal pain control. Lidocaine patch q12, calcitonin daily. Additional pain control w/ Tylenol first-line, scaled morphine for breakthrough (2) Atrial flutter: Plan: History of PFO, mild basal septal hypertrophy, paroxysmal A-fib, MAT Intolerant to verapamil/diltiazem/sotalol in the past Continue metoprolol On Eliquis for prophylaxis. This is temporarily held on admission, and patient switched to low-dose heparin prophylaxis pending orthopedic surgical evaluation Mild effusions but saturating normally on room air and otherwise appears relatively euvolemic Reviewed last [facility] [place] cardiology note 11/2023. At that time noted last echo 09/2023: LVEF 55-59%, grade 1 diastolic dysfunction, moderate AV sclerosis, mild to moderate MR, LA normal, mild TR, no evidence of pulmonary hypertension. Last Isabel scan 2020 with normal myocardial wall motion. History of atrial tachycardia/A-fib/a flutter and uptitrate metoprolol as needed. (3) Gastroesophageal reflux disease: Plan: - PPI (4) History of cerebrovascular accident: Plan: - LEFT arm numbness/tingling many years ago - Completely resolved. No residual deficits - On eliquis. Does not take aspirin or plaavix (5) Hypothyroidism: Plan: - Continue thyroid Plan Anxiety Continue duloxetine History of osteoporosis w/ compression fractures Care appetite temporarily held while inpatient Calcium/vitamin D supplementation. Continue outpatient follow-up and management DVT PPx: Transitioned to heparin gtt Diet: NPO at 0000 M/T due to pAfib DNR/DNI History of Present Illness Primary Care Provider: Marianne Hurd MD Adriana is a 74-year-old female with a PMHx of GERD, CVA, HLD, hypothyroidism, Lumbar compression fracture, anxiety who was seen 07/15/2023 for acute on chronic low back pain. At that time she was found to have subacute compression fractures at T10 without retropulsion, lumbar compression fractures with high- grade central canal stenosis at L3-L4 similar to 01/10/2023 were appreciated. 07/28 patient has multiple burst fractures with retropulsion and severe stenosis and presents with severe lower back pain, constipation, difficulty ambulating case was recommended reviewed by orthospine prior to admission. OK for admission, obtain MRI, and will be seen in consultation evaluation 01/29. Adriana reports her whole course when she was caring for her grandson in December who has CP who fell, and she had him fall on top of him so he would not get hurt. Has had professive back pain sinc cici Increased back pain x1 day. Could not get off the chair or walk due to severe pain. Normally can use a walker, but had to much pain to ambulate with this. Pain has been bad for ~2 weeks since she was in the ER in December, but was intolerable today. No numbness or tingling in the arms or legs Was able to be today, but was noted to have urinary retention in the ER that resolved with Da Silva placement Endorses constipation for over three weeks. Endorses some R flank pain. Denies nausea. No dysuria NO chest pain or chest pressure. No shortness of breath, but spasms take her breath away when they happen No fevers, no chills Does have a history of paroxysmal afib. In sinus at time of admission, she does not know when she is in it/does not feel her afib. No syncope/presyncope/lightheadedness/dizziness Medical History: Reviewed Medications: Reviewed Surgical History: Reviewed Family history: Reviewed Allergies: Reviewed. Allergic to iodinated contrast dye. Denies other medication allergies. No NSAIDs. Social History: No tobacco. No etoh. Code Status: DNR/DNI Allergies Allergy/AdvReac Type Severity Reaction Status Date / Time bee venom protein (honey bee) Allergy Severe THROAT Verified 12/26/23 09:10 CLOSES/HIVES Iodinated Contrast Media Allergy Intermediate HIVES Verified 12/26/23 09:10 aspirin AdvReac Unknown CONTRAINDICATED Verified 12/26/23 09:10 WITH BLOOD THINNERS ibuprofen AdvReac Unknown CONTRAINDICATED Verified 12/26/23 09:10 WITH BLOOD THINNERS mushroom AdvReac Unknown Unknown Verified 12/26/23 09:10 pepper (genus Capsicum) AdvReac Unknown Unknown Verified 12/26/23 09:10 Home Medications Medication Instructions Recorded Confirmed Type olopatadine 0.1 % eye drops 1 drp ophthalmic (eye) DAILY #5 mL 09/08/22 01/29/24 Rx calcitonin (salmon) 200 1 spray intranasal (ALT) DAILY 12/23/22 01/29/24 Rx unit/actuation nasal spray #3.7 mL fluticasone propionate 50 2 spray intranasal DAILY PRN 01/15/23 01/29/24 History mcg/actuation nasal allergies spray,suspension polyethylene glycol 3350 17 gram 17 gm PO DAILY PRN Constipation 01/17/23 01/29/24 Rx oral powder packet (Miralax) #30 ea sennosides 8.6 mg-docusate sodium 1 tab PO HS #30 tabs 01/17/23 01/29/24 Rx 50 mg tablet (Senokot-S) ondansetron 4 mg disintegrating 4 - 8 mg (1 - 2 x 4 mg) 02/22/23 01/29/24 Rx tablet translingual BID PRN nausea and vomiting #30 tabs TENS units #1 ea 02/28/23 01/29/24 Rx TENS unit and electrodes combo pack #1 ea 04/03/23 01/29/24 Rx atorvastatin 80 mg tablet 80 mg PO HS #90 tabs 04/26/23 01/29/24 Rx magnesium oxide 400 mg PO DAILY #30 tabs 05/29/23 01/29/24 Rx levalbuterol tartrate 45 See Rx Instructions inhalation 07/25/23 01/29/24 Rx mcg/actuation aerosol inhaler .COMPLEX PRN shortness of breath (Xopenex HFA) or wheezing #15 grams nystatin 100,000 unit/gram topical 1 applic topical BID PRN ABD FOLDS 08/07/23 01/29/24 Rx cream NEEDED #30 grams cyclobenzaprine 5 mg tablet 5 mg PO TID PRN muscle spasm #30 09/13/23 01/29/24 Rx tabs Forteo 20 mcg/dose (600 mcg/2.4 20 mcg (0.08 mL) subcut DAILY #2.4 10/05/23 01/29/24 Rx mL) subcutaneous pen injector mL (teriparatide) apixaban 5 mg tablet (Eliquis) 5 mg PO BID #60 tabs 10/07/23 01/29/24 Rx levothyroxine 125 mcg tablet 125 mcg PO DAILYBB #90 tabs 10/07/23 01/29/24 Rx duloxetine 60 mg capsule,delayed 60 mg PO DAILY #90 caps 11/15/23 01/29/24 Rx release lorazepam 0.5 mg tablet 0.5 mg PO TID anxiety #90 tabs 11/22/23 01/29/24 Rx gabapentin 400 mg capsule 400 mg PO BID #60 caps 12/26/23 01/29/24 Rx lidocaine 4 % topical patch 1 patch topical QID PRN pain #60 ea 12/26/23 01/29/24 Rx (Salonpas (lidocaine)) pantoprazole 40 mg tablet,delayed 40 mg PO QAM #90 tabs 12/26/23 01/29/24 Rx release acetaminophen 500 mg tablet 500 mg PO Q4 PRN mild-moderate pain 01/29/24 01/29/24 History benzonatate 100 mg capsule 100 - 200 mg PO TID PRN Cough 01/29/24 01/29/24 History calcium carbonate (Tums) 1 tab PO DAILY 01/29/24 01/29/24 History ergocalciferol (vitamin D2) 1,250 1,250 mcg PO WK 01/29/24 01/29/24 History mcg (50,000 unit) capsule (Vitamin D2) metoprolol succinate 25 mg 37.5 mg PO HS 01/29/24 01/29/24 History tablet,extended release 24 hr omeprazole 40 mg capsule,delayed 40 mg PO QAM 01/29/24 01/29/24 History release Past Med/Surg History Problem List Lower abdominal pain (Acute) Dehydration (Acute) Acute mid back pain (Acute) Osteoporosis (Acute) Back pain of thoracolumbar region Closed compression fracture of lumbar vertebra (Acute) L4 Closed compression fracture of body of L1 vertebra (Acute 10/21/22) L1 and L2 Patellofemoral arthritis of right knee Patellofemoral arthritis of left knee Cholelithiases Mixed conductive and sensorineural hearing loss of right ear with restricted hearing of left ear Cholelithiasis (Chronic) Bee sting reaction (Chronic) Anxiety (Chronic) Adverse anesthesia outcome Hard time waking up Chronic rhinitis Right chronic serous otitis media ETD (eustachian tube dysfunction) right Arthritis Prediabetes (Chronic) Post traumatic stress disorder (PTSD) (Chronic) Pharyngitis, chronic (Chronic) Learning disability (Chronic) Laryngitis, chronic (Chronic) Hypothyroidism (Chronic 10/29/12) Hyperlipidemia (Chronic 10/29/12) History of cerebrovascular accident (Chronic) Gastroesophageal reflux disease (Chronic 10/29/12) Chronic allergic conjunctivitis (Chronic) Constipation (Chronic) Cystocele, midline (Chronic) Diaphragmatic hernia (Chronic) Gastroparesis (Chronic) HSV infection (Chronic) High triglycerides (Chronic) Low hemoglobin and low hematocrit (Chronic) Primary snoring (Chronic) Rectocele (Chronic) Rosacea (Chronic) Tension headache (Chronic) Vitamin D deficiency (Chronic) A-fib (Chronic) Medical History Numbness and tingling in left hand Left knee pain Stroke Conductive hearing loss of both ears SVT (supraventricular tachycardia) Chest pain (05/18/14) Surgical History Tympanic tube insertion 2019. History of tonsillectomy History of hysterectomy History of surgery Vaginal Reconstruction - 2013 History of colonoscopy No pertinent past surgical history Family History Father Colorectal cancer Coronary heart disease Prostate cancer Cancer Aunt Diabetes Mother Myocardial infarction Coronary heart disease Stroke Daughter Crohn's disease Asthma Son Allergic rhinitis Family/Other Anemia Child Other Family history non-contributory Denies family history of Ovarian cancer Breast cancer Social History Smoking Status: Former smoker Second Hand Exposure: No; Do You Dip or Chew Tobacco: No; Hx Alcohol Use: No Hx Substance Use: Yes Substance Use Type Other:: Pt. takes prescription tramadol Preferred Language: [place] Communication Ability: Effective Communication Ability Comment: poor reading ability Visual Impairment: No Limitations Hearing Ability: Normal Heat And Frost Insulator Required: No Beliefs That Will Affect Care: None marital status: Current Living Situation: Spouse Current Living Situation Comment: Lives with . Pt. states is not around much to assist pt. current occupational status: retired How many Children do You have: 3 Feels Safe at Home: Yes Childhood Exposure to Second-Hand Smoke: Yes Diet: regular caffeine: Yes (Soda - occasional) during the past year weight has: remained stable Dental Care, Regularly: No Physical Activity Frequency: Does not Exercise Seatbelt Use: always Sunscreen Use: Yes Assistive Devices: Cane, Walker and Wheelchair Physical Exam Physical Exam: General: A&Ox3. NAD. Cooperative. HEENT: Atraumatic, normocephalic. Vision/hearing intact Pulm: CTAB A&P. -wheezes, -rales, -rhonchi. Symmetrical chest rise. No increased work of breathing. No respiratory distress. Cardiac: RRR, -mrg. Radial pulses intact and symmetrical. Abdominal: Nontender, nondistended, soft. BS present. 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 Pt defers additional exam due to induction of pain in her back LUE: 5/5 clerical aide teacher strength Pt defers additional e xam due to induction of pain in her back RLE: 5/5 to ankle dorsiflexion/plantarflexion Pt defers additional exam due to induction of pain in her back LLE: 5/5 ankle dorsiflexion/plantarflexion P t defers additional exam due to induction of pain in her back REFLEXES: 2/4 patellar, no clonus SENSORY: Normal to touchp in upper and lower extremities without deficit or asymmetry. No saddle anesthesia Results & Data Results & Data Vital Signs (Past 12 Hours) Vital Signs Temp Pulse Pulse Resp BP BP Pulse Ox 01/29/24 16:32 75 20 150/81 H 96 01/29/24 12:48 85 01/29/24 12:40 36.7 C 82 35 H 129/71 92 01/29/24 12:30 36.7 C 85 20 136/78 94 O2 Del Method 01/29/24 16:32 Room Air 01/29/24 12:48 01/29/24 12:40 Room Air 01/29/24 12:30 Room Air PG Care Time/CCT Total # of Minutes Spent Total Time Spent with Patient: Total time spent is greater than 50% in coordination of care (as documented) at patient's floor/unit and/or counseling patient: Coding Level of Care Code 86916 INT INP/OBS CARE 3/75MIN Diagnoses Closed compression fracture of lumbar vertebra S32.000A Encounter type: subsequent encounter Lumbar vertebra fracture level: L1 Atrial flutter I48.92 Gastroesophageal reflux disease K21.9 History of cerebrovascular accident Z86.73 Hypothyroidism E03.9 (1) Closed compression fracture of lumbar vertebra Encounter type: subsequent encounter Lumbar vertebra fracture level: L1
[2024-01-29] MEDS: LIDOCAINE 5% 1 PATCH TD STA (18:02)
[2024-01-29] MEDS: LACTATED RINGER'S 500 ML IV ONE (18:02)
[2024-01-29] MEDS: LORazepam 0.5 MG in SYRINGE 0.25 ML IV PRN (18:32)
[2024-01-29] MEDS: HYDROmorphone INJ 0.5 MG/0.5 ML SYR IV STA (19:32)
--- NOTE | 2024-01-29 21:18 | Magnetic Resonance Report ---
Exam(s): MRI L SPINE Without Contrast EXAM: MR Lumbar Spine Without Intravenous Contrast CLINICAL HISTORY: Reason for exam: low back pain, weak, urinary retention. TECHNIQUE: Magnetic resonance images of the lumbar spine without intravenous contrast in multiple planes. COMPARISON: X-ray lumbar spine: 01/11/24 FINDINGS: Diagnostic sensitivity of the exam is reduced by the motion artifact. For the purpose of this dictation most caudal fully formed vertebral body is counted as L5. Exaggerated lumbar lordosis. A L1 vertebra plana with posterior subluxation of the superior endplate and moderate central canal stenosis. L2-L4 levels chronic vertebral compression fractures with loss of 60-80% body heights. Vertebrae: There is a T10 vertebral acute/subacute fracture with loss of 50-60% body height. No acute lumbar vertebral fracture. Spinal cord: The conus medullaris ends at a normal level. Normal signal. Soft tissues: Paravertebral muscular/soft tissue mild/moderate fat infiltration/atrophy. DISCS/SPINAL CANAL/NEURAL FORAMINA: L1-L2: Posterior disc bulging, endplate/disc osteophyte changes bilateral severe neuroforaminal stenosis. Compression of the right L2 nerve root/nerve root sheath. L2-L3: Shallow central posterior mild disc bulging/endplate changes and ligamentous facet arthropathy causing partial effacement of the anterior thecal sac and moderate left foraminal narrowing. L3-L4: Shallow central posterior disc bulging/endplate changes and moderate hypertrophic ligamentous facet arthropathy causing moderate bilateral foraminal stenosis and central canal stenosis. L4-L5: Mild/moderate shallow central disc bulging/endplate changes and mild ligamentous facet arthropathy. No stenosis. L5-S1: Mild/moderate posterior disc bulging, symmetrical endplate changes and mild/moderate facet osteoarthropathy. No significant stenosis. Minimal right S1 nerve root nerve root sheath effacement. IMPRESSION: A T10 vertebral acute/subacute fracture with loss of 50-60% body height. A L1 vertebra plana with posterior subluxation of the superior endplate and moderate central canal stenosis. L2-L4 levels chronic vertebral compression fractures with loss of 60-80% body heights. This unenhanced MRI of the lumbar spine demonstrate multiple levels of degenerative disc/endplate and posterior elements spondylitic changes as described above. . Electronically signed by: Saurav Alejandro MD, PHILIP 01/29/24 21:17 PM
[2024-01-29] MEDS ORDERED: ONDANSETRON INJ 2 MG/ML 2 ML VIAL IV PRN (22:22)
[2024-01-29] MEDS: MoRPHine SULFATE 2 MG/ML CARP IV PRN (22:27)
[2024-01-29] MEDS: LORazepam 0.5 MG TAB PO SCH (22:46)
[2024-01-29] MEDS: ACETAMINOPHEN 1,000 MG/100 ML VIAL IV PRN (22:47)
[2024-01-29] MEDS: GABAPENTIN 400 MG CAP PO SCH (23:08)
[2024-01-29] MEDS: ATORVASTATIN 40 MG TAB PO SCH (23:08)
[2024-01-29] MEDS: CALCIUM CARBONATE 1,250 MG/5 ML UDC PO SCH (23:09)
[2024-01-30] MEDS: LEVOTHYROXINE SODIUM 125 MCG TABLET PO SCH (05:53)
[2024-01-30] MEDS ORDERED: NON-FORMULARY MEDICATION (Omeprazole 40 mg capsule,delayed release(DR/EC)) PO SCH (09:00)
[2024-01-30] MEDS: HEPARIN SOD 5,000 UNIT/0.5 ML VIAL SQ SCH (09:09)
[2024-01-30] MEDS: DULoxetine HCL 60 MG CAP PO SCH (09:11)
[2024-01-30] MEDS: POLYETHYLENE (MIRALAX) 17 GM PACK PO SCH (09:12)
[2024-01-30] MEDS: PANTOprazole 40 MG TAB PO SCH (09:12)
[2024-01-30] MEDS: CYCLOBENZAPRINE HCL 5 MG TAB PO PRN (09:12)
[2024-01-30] MEDS: CALCITONIN SALMON NA 200 IU/AC 3.7 ML BTL SCH (09:13)
[2024-01-30] MEDS: ACETAMINOPHEN 325 MG TAB PO PRN (09:17)
[2024-01-30] MEDS: LACTATED RINGER'S 500 ML IV ONE ×2 (15:02→17:28)
--- NOTE | 2024-01-30 16:31 | Hospitalist Progress Note ---
Date of Service January 30, 2024 Assessment & Plan (1) Closed compression fracture of lumbar vertebra: Plan: Severe back pain Has had constipation, and voided today but is not having urinary retention while in the ER. No saddle anesthesia. No lower extremity weakness. Was reviewed with orthopedic spine prior to admission will evaluate 01/29 CTlumbar spine: Unchanged appearance of subacute appearing burst type compression deformities at H1W3-T8 compared to 01/21/2024, retropulsed fragments at all levels approximately 8 mm and moderate canal stenosis is noted at L3-L4. CTA/P: Multiple spinal compression fractures as noted above, and additionally T12 compression fracture redemonstrated and with loss of height compared to prior exam. Trace bilateral pleural effusions No leukocytosis Patient is with constipation. No urinary symptoms Lumbar MRI: A T10 vertebral acute/subacute fracture with loss of 50-60% body height. A L1 vertebra plana with posterior subluxation of the superior endplate and moderate central canal stenosis. L2-L4 levels chronic vertebral compression fractures with loss of 60-80% body heights. Orthospine consulted, recommendations pending. Will defer PT/OT and continue on bedrest until seen and evaluated Continue multimodal pain control. Lidocaine patch q12, calcitonin daily. Additional pain control w/ Tylenol first-line, scaled morphine for breakthrough. Pain is improved and tolerable following analgesic medications, but not resolved. 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 This is temporarily held on admission, and patient switched to low-dose heparin SQ pending orthopedic surgical evaluation; she remains in sinus. if recurrent afib/flutter --> heparin gtt Mild effusions but saturating normally on room air and otherwise appears relatively euvolemic Reviewed last [facility] [place] 11/[place]23. At that time noted last echo 09/2023: LVEF 55-59%, grade 1 diastolic dysfunction, moderate AV sclerosis, mild to moderate MR, LA normal, mild TR, no evidence of pulmonary hypertension. Last Isabel scan 2020 with normal myocardial wall motion. History of atrial tach ycardia/A-fib/a flutter and uptitrate metoprolol as needed. (3) Gastroesophageal reflux disease: Plan: - PPI (4) History of cerebrovascular accident: Plan: - LEFT arm numbness/tingling many years ago - Completely resolved. No residual deficits - On eliquis. Does not take aspirin or plaavix (5) Hypothyroidism: Plan: - Continue thyroid Plan Anxiety Continue duloxetine History of osteoporosis w/ compression fractures Care appetite temporarily held while inpatient Calcium/vitamin D supplementation. Continue outpatient follow-up and ma thierno DVT PPx: heparin as noted Diet: NPO M/T due to pAfib DNR/DNI Admission and Anticipated Discharge Date Admission Date: January 29, 2024 Subjective Seen at the bedside this morning. Pain is improved but not resolved following IV pain control. She has not had any numbness or tingling into her legs overnight. Denies weakness. Da Silva draining urine, no abdominal pain. She reports her back is still very uncomfortable and after she attempts to move in bed this increases her pain significantly. Has not yet seen orthospine, comfortable at time of bedside evaluation Physical Exam Physical Exam: General: A&Ox3. NAD. Cooperative. HEENT: Atraumatic, normocephalic. Vision/hearing intact Pulm: CTAB A&P. -wheezes, -rales, -rhonchi. Symmetrical chest rise. No increased work of breathing. No respiratory distress. Cardiac: RRR, -mrg. Radial pulses intact and symmetrical. Abdominal: Nontender, nondistended, soft. BS present. MOTOR: Moves upper extremities equally. Ankle dorsiflexion/plantarflexion 5/5 bilaterally SENSORY: Normal to touch in upper and lower extremities without deficit or asymmetry. No saddle anesthesia Results & Data Results & Data Vital Signs (Past 12 Hours) Vital Signs Temp Pulse Pulse Resp BP Pulse Ox O2 Del Method 01/30/24 15:16 36.8 C 100 H 20 109/67 93 Nasal Cannula 01/30/24 14:52 101 H 01/30/24 11:36 36.9 C 96 H 18 99/65 L 90 Nasal Cannula 01/30/24 09:00 75 01/30/24 07:30 36.4 C L 86 18 106/70 94 Nasal Cannula 01/30/24 05:49 107/72 01/30/24 04:53 91/63 L 93 Nasal Cannula O2 Flow Rate 01/30/24 15:16 3 01/30/24 14:52 01/30/24 11:36 3 01/30/24 09:00 01/30/24 07:30 3 01/30/24 05:49 01/30/24 04:53 3 PG Care Time/CCT Total # of Minutes Spent Total Time Spent with Patient: Total time spent is greater than 50% in coordination of care (as documented) at patient's floor/unit and/or counseling patient: Coding Level of Care Code 01295 SUB INP/OBS CARE 2/35MIN Diagnoses Closed compression fracture of lumbar vertebra S32.000A Encounter type: subsequent encounter Lumbar vertebra fracture level: L1 Atrial flutter I48.92 Gastroesophageal reflux disease K21.9 History of cerebrovascular accident Z86.73 Hypothyroidism E03.9 (1) Closed compression fracture of lumbar vertebra Encounter type: subsequent encounter Lumbar vertebra fracture level: L1
[2024-01-30] MEDS ORDERED: POLYETHYLENE (MIRALAX) 17 GM PACK PO PRN (16:35)
[2024-01-30] MEDS: METOPROLOL TARTRATE 25 MG TAB PO STA (17:28)
--- NOTE | 2024-01-30 19:30 | Orthopedic Consultation ---
Date of Service January 30, 2024 Assessment & Plan (1) Acute mid back pain: (2) Closed compression fracture of lumbar vertebra: (3) Closed compression fracture of body of L1 vertebra: History of Present Illness Reason for Consultation: Back pain, lumbar vertebral compression fracture. Requesting Physician: . Attending Physician: Denis Palacios MD 74-year-old female presented to ER on 01/27 with a PMHx of GERD, CVA, HLD, hypothyroidism, Lumbar compression fracture, anxiety who was seen 07/15/2023 for acute on chronic low back pain. At that time she was found to have subacute compression fractures at T10 without retropulsion, lumbar compression fractures with high-grade central canal stenosis at L3-L4 similar to 01/10/2023 were ap preciated. 07/28 patient has multiple burst fractures with retropulsion and moderate stenosis and presents with severe lower back pain, constipation, difficulty ambulating case was recommended reviewed by orthospine prior to admission. OK for admission, obtain MRI, and will be seen in consultation evaluation 01/29. Adriana reports her whole course when she was caring for her grandson in December who has CP who fell, and she had him fall on top of him so he would not get hurt. Has had professive back pain since then. Increased back pain x1 day. Could not get off the chair or walk due to severe pain. Normally can use a walker, but had to much pain to ambulate with this. Pain has been bad for ~2 weeks since she was in the ER in December, but was intolerable today. On admission, patient had no numbness or tingling in the arms or legs. In conversation today the patient relates that her pain is improved versus what it was yesterday, she has had limited mobilization, she still possesses the brace that she was wearing when last in the office. Exam reveals the patient to have pain indicated lower lumbar spine region, she is comfortable lying in bed, awake and alert. She has intact strength for all groups tested in the lower extremities and a negative straight leg raise. CT SCAN OF THE LUMBAR SPINE WITHOUT IV CONTRAST 01/29/24 CLINICAL HISTORY: Low back pain. COMPARISON STUDY: CT scan of the lumbar spine dated 01/15/2023. Abdominal CT dated 01/21/2024. FINDINGS: The skeletal structures are osteopenic. There is a severe chronic compression deformity of L1. Fragments at this level are retropulsed by up to 9 mm. Again seen are subacute burst type compression deformities of L2, L3, and L4. These are unchanged from the 01/21/[address] scan. Fragments are retropulsed at all levels by up to 8 mm. This causes at least moderate central canal stenosis at L4. No new fracture is identified. Anterior and lateral marginal osteophytes are seen throughout. The transverse and spinous processes appear intact. There is no spondylolysis. No lytic or blastic lesion is seen. There is mild degenerative disc space narrowing. The visualized sacrum and bony pelvis appear intact. There is fatty atrophy of the paraspinous musculature. No retroperitoneal lymphadenopathy is seen. IMPRESSION: 1. There is unchanged appearance of subacute-appearing burst type compression deformities of L2, L3, and L4 as compared to the 01/21/[address] 2. Fragments are retropulsed at all levels. These contribute to moderate central canal stenosis at L3-L4. 3. No new fracture is identified. 4. Additional findings as above. MR Lumbar Spine Without Intravenous Contrast CLINICAL HISTORY: Reason for exam: low back pain, weak, urinary retention. COMPARISON: X-ray lumbar spine: 01/11/24 FINDINGS: Diagnostic sensitivity of the exam is reduced by the motion artifact. For the purpose of this dictation most caudal fully formed vertebral body is counted as L5. Exaggerated lumbar lordosis. A L1 vertebra plana with posterior subluxation of the superior endplate and moderate central canal stenosis. L2-L4 levels chronic vertebral compression fractures with loss of 60-80% body heights. Vertebrae: There is a T10 vertebral acute/subacute fracture with loss of 50-60% body height. No acute lumbar vertebral fracture. Spinal cord: The conus medullaris ends at a normal level. Normal signal. Soft tissues: Paravertebral muscular/soft tissue mild/moderate fat infiltration/atrophy. DISCS/SPINAL CANAL/NEURAL FORAMINA: L1-L2: Posterior disc bulging, endplate/disc osteophyte changes bilateral severe neuroforaminal stenosis. Compression of the right V1cemto root/nerve root sheath. L2-L3: Shallow central posterior mild disc bulging/endplate changes and ligamentous facet arthropathy causing partial effacement of the anterior thecal sac and moderate left foraminal narrowing. L3-L4: Shallow central posterior disc bulging/endplate changes and moderate hypertrophic ligamentous facet arthropathy causing moderatebilateral foraminal stenosis and central canal stenosis. L4-L5: Mild/moderate shallow central disc bulging/endplate changes and mild ligamentous facet arthropathy. No stenosis. L5-S1: Mild/moderate posterior disc bulging, symmetrical endplate changes and mild/moderate facet osteoarthropathy. No significant stenosis. Minimal right S1 nerve root nerve root sheath effacement. IMPRESSION: A T10 vertebral acute/subacute fracture with loss of 50-60% body height. A L1 vertebra plana with posterior subluxation of the superior endplate and moderate central canal stenosis. L2-L4 levels chronic vertebral compression fractures with loss of 60-80% body heights. Review of MRI and CT scan images in comparison to previous radiographs, the above studies from January 29, 2024, this reveals compression fractures T10 L1 and L2-L4 the most recent at L3. There is only moderate canal stenosis at most at the L3-4 level. Impression: Lumbar compression fractures most recent most likely at L3, patient has moderate canal stenosis but no focal weakness and no high-grade stenosis. Plan: I discussed the patient's findings on the different test, my recommendations are that she is mobilized with physical therapy with the brace on and appropriate pain medications. I related she can have the brace off when in bed, she is to do no forward bending lifting or twisting. The stenosis in the canal was not enough to cause any bowel or bladder issues, I recommend discontinuing the Da Silva. Patient can follow-up in the next 2 weeks in the office with radiographs. Allergies Allergy/AdvReac Type Severity Reaction Status Date / Time bee venom protein (honey bee) Allergy Severe THROAT Verified 12/26/23 09:10 CLOSES/HIVES Iodinated Contrast Media Allergy Intermediate HIVES Verified 12/26/23 09:10 aspirin AdvReac Unknown CONTRAINDICATED Verified 12/26/23 09:10 WITH BLOOD THINNERS ibuprofen AdvReac Unknown CONTRAINDICATED Verified 12/26/23 09:10 WITH BLOOD THINNERS mushroom AdvReac Unknown Unknown Verified 12/26/23 09:10 pepper (genus Capsicum) AdvReac Unknown Unknown Verified 12/26/23 09:10 Home Medications Medication Instructions Recorded Confirmed Type olopatadine 0.1 % eye drops 1 drp ophthalmic (eye) DAILY #5 mL 09/08/22 01/29/24 Rx calcitonin (salmon) 200 1 spray intranasal (ALT) DAILY 12/23/22 01/29/24 Rx unit/actuation nasal spray #3.7 mL fluticasone propionate 50 2 spray intranasal DAILY PRN 01/15/23 01/29/24 History mcg/actuation nasal allergies spray,suspension polyethylene glycol 3350 17 gram 17 gm PO DAILY PRN Constipation 01/17/23 01/29/24 Rx oral powder packet (Miralax) #30 ea sennosides 8.6 mg-docusate sodium 1 tab PO HS #30 tabs 01/17/23 01/29/24 Rx 50 mg tablet (Senokot-S) ondansetron 4 mg disintegrating 4 - 8 mg (1 - 2 x 4 mg) 02/22/23 01/29/24 Rx tablet translingual BID PRN nausea and vomiting #30 tabs TENS units #1 ea 02/28/23 01/29/24 Rx TENS unit and electrodes combo pack #1 ea 04/03/23 01/29/24 Rx atorvastatin 80 mg tablet 80 mg PO HS #90 tabs 04/26/23 01/29/24 Rx magnesium oxide 400 mg PO DAILY #30 tabs 05/29/23 01/29/24 Rx levalbuterol tartrate 45 See Rx Instructions inhalation 07/25/23 01/29/24 Rx mcg/actuation aerosol inhaler .COMPLEX PRN shortness of breath (Xopenex HFA) or wheezing #15 grams nystatin 100,000 unit/gram topical 1 applic topical BID PRN ABD FOLDS 08/07/23 01/29/24 Rx cream NEEDED #30 grams cyclobenzaprine 5 mg tablet 5 mg PO TID PRN muscle spasm #30 09/13/23 01/29/24 Rx tabs Forteo 20 mcg/dose (600 mcg/2.4 20 mcg (0.08 mL) subcut DAILY #2.4 10/05/23 01/29/24 Rx mL) subcutaneous pen injector mL (teriparatide) apixaban 5 mg tablet (Eliquis) 5 mg PO BID #60 tabs 10/07/23 01/29/24 Rx levothyroxine 125 mcg tablet 125 mcg PO DAILYBB #90 tabs 10/07/23 01/29/24 Rx duloxetine 60 mg capsule,delayed 60 mg PO DAILY #90 caps 11/15/23 01/29/24 Rx release lorazepam 0.5 mg tablet 0.5 mg PO TID anxiety #90 tabs 11/22/23 01/29/24 Rx gabapentin 400 mg capsule 400 mg PO BID #60 caps 12/26/23 01/29/24 Rx lidocaine 4 % topical patch 1 patch topical QID PRN pain #60 ea 12/26/23 01/29/24 Rx (Salonpas (lidocaine)) pantoprazole 40 mg tablet,delayed 40 mg PO QAM #90 tabs 12/26/23 01/29/24 Rx release acetaminophen 500 mg tablet 500 mg PO Q4 PRN mild-moderate pain 01/29/24 01/29/24 History benzonatate 100 mg capsule 100 - 200 mg PO TID PRN Cough 01/29/24 01/29/24 History calcium carbonate (Tums) 1 tab PO DAILY 01/29/24 01/29/24 History ergocalciferol (vitamin D2) 1,250 1,250 mcg PO WK 01/29/24 01/29/24 History mcg (50,000 unit) capsule (Vitamin D2) metoprolol succinate 25 mg 37.5 mg PO HS 01/29/24 01/29/24 History tablet,extended release 24 hr omeprazole 40 mg capsule,delayed 40 mg PO QAM 01/29/24 01/29/24 History release Past Med/Surg History Problem List Lower abdominal pain (Acute) Dehydration (Acute) Acute mid back pain (Acute) Osteoporosis (Acute) Back pain of thoracolumbar region Closed compression fracture of lumbar vertebra (Acute) L4 Closed compression fracture of body of L1 vertebra (Acute 10/21/22) L1 and L2 Patellofemoral arthritis of right knee Patellofemoral arthritis of left knee Cholelithiases Mixed conductive and sensorineural hearing loss of right ear with restricted hearing of left ear Cholelithiasis (Chronic) Bee sting reaction (Chronic) Anxiety (Chronic) Adverse anesthesia outcome Hard time waking up Chronic rhinitis Right chronic serous otitis media ETD (eustachian tube dysfunction) right Arthritis Prediabetes (Chronic) Post traumatic stress disorder (PTSD) (Chronic) Pharyngitis, chronic (Chronic) Learning disability (Chronic) Laryngitis, chronic (Chronic) Hypothyroidism (Chronic 10/29/12) Hyperlipidemia (Chronic 10/29/12) History of cerebrovascular accident (Chronic) Gastroesophageal reflux disease (Chronic 10/29/12) Chronic allergic conjunctivitis (Chronic) Constipation (Chronic) Cystocele, midline (Chronic) Diaphragmatic hernia (Chronic) Gastroparesis (Chronic) HSV infection (Chronic) High triglycerides (Chronic) Low hemoglobin and low hematocrit (Chronic) Primary snoring (Chronic) Rectocele (Chronic) Rosacea (Chronic) Tension headache (Chronic) Vitamin D deficiency (Chronic) A-fib (Chronic) Medical History Numbness and tingling in left hand Left knee pain Stroke Conductive hearing loss of both ears SVT (supraventricular tachycardia) Chest pain (05/18/14) Surgical History Tympanic tube insertion 2019. History of tonsillectomy History of hysterectomy History of surgery Vaginal Reconstruction - 2012 History of colonoscopy No pertinent past surgical history Family History Father Colorectal cancer Coronary heart disease Prostate cancer Cancer Aunt Diabetes Mother Myocardial infarction Coronary heart disease Stroke Daughter Crohn's disease Asthma Son Allergic rhinitis Family/Other Anemia Child Other Family history non-contributory Denies family history of Ovarian cancer Breast cancer Social History Smoking Status: Former smoker Second Hand Exposure: No; Do You Dip or Chew Tobacco: No; Hx Alcohol Use: No Hx Substance Use: No Preferred Language: [place] Communication Ability: Effective Communication Ability Comment: poor reading ability Visual Impairment: No Limitations Hearing Ability: Normal Loss Prevention Consultant Required: No Beliefs That Will Affect Care: None marital status: Current Living Situation: Spouse Current Living Situation Comment: pt reported she lives with her however he is not helpful current occupational status: retired How many Children do You have: 3 Feels Safe at Home: Yes Safety Concerns: Feels Safe At This Time Childhood Exposure to Second-Hand Smoke: Yes Diet: regular caffeine: Yes (Soda - occasional) during the past year weight has: remained stable Dental Care, Regularly: No Physical Activity Frequency: Does not Exercise Seatbelt Use: always Sunscreen Use: Yes Assistive Devices: Cane, Walker and Wheelchair Assistive Devices Comment: pt uses walker at baseline however is unable to ambulate at this time Review of Systems All systems reviewed & are unremarkable except as noted in HPI & below. Physical Exam . Results & Data Results & Data Laboratory Results . Diagnostic Findings . PG Care Time/CCT Total # of Minutes Spent Total Time Spent with Patient: Total time spent is greater than 50% in coordination of care (as documented) at patient's floor/unit and/or counseling patient: Coding Level of Care Code 73639 IN/OBS CONSULT LVL 3,45M Diagnoses Acute mid back pain M54.9 Closed compression fracture of lumbar vertebra S32.000A Encounter type: subsequent encounter Lumbar vertebra fracture level: L1 Closed compression fracture of body of L1 vertebra S32.010A (2) Closed compression fracture of lumbar vertebra Encounter type: subsequent encounter Lumbar vertebra fracture level: L1
[2024-01-30] MEDS: METOPROLOL SUCC 25MG EXT REL TAB PO SCH (20:31)
[2024-01-31 06:32] LABS: Basophils # (auto) 0.01 K/uL (0.00-0.20); Basophils % (auto) 0.2 %; Eosinophils # (auto) 0.11 K/uL (0.00-0.50); Eosinophils % (auto) 1.7 %; Hematocrit (blood only) 33.7 % (37.0-47.0); Hemoglobin 11.5 g/dl (12.0-16.0); Immature Granulocytes # (auto) 0.03 K/uL (0.01-0.20); Immature Granulocytes % (auto) 0.5 %; Lymphocytes # (auto) 2.53 K/uL (1.20-3.40); Lymphocytes % (auto) 38.9 %; Mean Corpuscular Hemoglobin 32.3 pg (25.0-34.0); Mean Corpuscular Hgb Conc 34.1 g/dL (32.0-36.0); Mean Corpuscular Volume 94.7 fL (80.0-100.0); Mean Platelet Volume 9.2 fL (9.4-12.4); Monocytes # (auto) 0.65 K/uL (0.11-0.59); Neutrophils # (auto) 3.18 K/uL (1.40-6.50); Neutrophils % (auto) 48.7 %; Platelet Count 191 K/uL (130-400); RDW Coefficient of Variation 12.4 % (11.5-14.5); Red Blood Count 3.56 M/uL (4.20-5.40); White Blood Count 6.51 K/ul (4.8-10.8)
[2024-01-31 06:47] LABS: BUN Creatinine Ratio 21.4 (10-20); Calcium 8.8 mg/dl (8.6-10.3); Creatinine Clr Calc Pharmacy 64.8 ml/min; Est GFR (African American) 98.9 ml/min; Est GFR (Non-African American) 85.4 ml/min; Potassium 4.3 mmol/L (3.5-5.1)
--- NOTE | 2024-01-31 15:23 | Hospitalist Progress Note ---
Date of Service January 31, 2024 Assessment & Plan (1) Closed compression fracture of lumbar vertebra: Plan: Severe back pain Has had constipation, and voided today but is not having urinary retention while in the ER. No saddle anesthesia. No lower extremity weakness. Was reviewed with orthopedic spine prior to admission will evaluate 01/29 CTlumbar spine: Unchanged appearance of subacute appearing burst type compression deformities at I7J5-T1 compared to 01/21/2024, retropulsed fragments at all levels approximately 8 mm and moderate canal stenosis is noted at L3-L4. CTA/P: Multiple spinal compression fractures as noted above, and additionally T12 compression fracture redemonstrated and with loss of height compared to prior exam. Trace bilateral pleural effusions No leukocytosis Patient is with constipation. No urinary symptoms Lumbar MRI: A T10 vertebral acute/subacute fracture with loss of 50-60% body height. A L1 vertebra plana with posterior subluxation of the superior endplate and moderate central canal stenosis. L2-L4 levels chronic vertebral compression fractures with loss of 60-80% body heights. Orthospine consulted, recommendations pending. Will defer PT/OT and continue on bedrest until seen and evaluated Continue multimodal pain control. Lidocaine patch q12, calcitonin daily. Additional pain control w/ Tylenol first-line, scaled morphine for breakthrough. Pain is improved and tolerable following analgesic medications, but not resolved. 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 This is temporarily held on admission, and patient switched to low-dose heparin SQ pending orthopedic surgical evaluation; she remains in sinus. if recurrent afib/flutter --> heparin gtt Mild effusions but saturating normally on room air and otherwise appears relatively euvolemic Reviewed last [facility] cardiology note 11/2023. At that time noted last echo 09/2023: LVEF 55-59%, grade 1 diastolic dysfunction, moderate AV sclerosis, mild to moderate MR, LA normal, mild TR, no evidence of pulmonary hypertension. Last Isabel scan 2020 with normal myocardial wall motion. History of atrial tachycardia/A-fib/a flutter and uptitrate metoprolol as needed. (3) Gastroesophageal reflux disease: Plan: - PPI (4) History of cerebrovascular accident: Plan: - LEFT arm numbness/tingling many years ago - Completely resolved. No residual deficits - On eliquis. Does not take aspirin or plaavix (5) Hypothyroidism: Plan: - Continue thyroid Plan Anxiety Continue duloxetine History of osteoporosis w/ compression fractures Care appetite temporarily held while inpatient Calcium/vitamin D supplementation. Continue outpatient follow-up and management DVT PPx: heparin as noted Diet: NPO M/T due to pAfib DNR/DNI Admission and Anticipated Discharge Date Admission Date: January 29, 2024 Subjective severe back pain Review of Systems Review of Systems: All systems reviewed & are unremarkable except as noted in Subjective Physical Exam Physical Exam: head atraumatic neck supple chest CTA b/l abdomen soft, nt, nd, bs extremities no edema neuro AAO times 3 Results & Data Results & Data Vital Signs (Past 12 Hours) Vital Signs Temp Pulse Pulse Resp BP BP Pulse Ox 01/31/24 11:24 36.6 C 71 18 107/66 93 01/31/24 09:00 01/31/24 07:28 36.7 C 71 18 111/70 94 01/31/24 07:06 70 O2 Del Method O2 Flow Rate 01/31/24 11:24 Nasal Cannula 2 01/31/24 09:00 Nasal Cannula 2 01/31/24 07:28 Nasal Cannula 3 01/31/24 07:06 PG Care Time/CCT Total # of Minutes Spent Total Time Spent with Patient: Total time spent is greater than 50% in coordination of care (as documented) at patient's floor/unit and/or counseling patient: Coding Level of Care Code 13955 SUB INP/OBS CARE 2/35MIN Diagnoses Closed compression fracture of lumbar vertebra S32.000A Encounter type: subsequent encounter Lumbar vertebra fracture level: L1 Atrial flutter I48.92 Gastroesophageal reflux disease K21.9 History of cerebrovascular accident Z86.73 Hypothyroidism E03.9 (1) Closed compression fracture of lumbar vertebra Encounter type: subsequent encounter Lumbar vertebra fracture level: L1
[2024-01-31 16:12] LABS: BUN Creatinine Ratio 22.1 (10-20); Calcium 9.4 mg/dl (8.6-10.3); Creatinine Clr Calc Pharmacy 66.7 ml/min; Est GFR (African American) 99.9 ml/min; Est GFR (Non-African American) 86.2 ml/min; Potassium 3.8 mmol/L (3.5-5.1)
[2024-02-01 07:23] LABS: Basophils # (auto) 0.03 K/uL (0.00-0.20); Basophils % (auto) 0.5 %; Eosinophils # (auto) 0.05 K/uL (0.00-0.50); Eosinophils % (auto) 0.9 %; Hematocrit (blood only) 34.3 % (37.0-47.0); Hemoglobin 11.8 g/dl (12.0-16.0); Immature Granulocytes # (auto) 0.03 K/uL (0.01-0.20); Immature Granulocytes % (auto) 0.5 %; Lymphocytes # (auto) 1.57 K/uL (1.20-3.40); Lymphocytes % (auto) 26.7 %; Mean Corpuscular Hemoglobin 32.1 pg (25.0-34.0); Mean Corpuscular Hgb Conc 34.4 g/dL (32.0-36.0); Mean Corpuscular Volume 93.2 fL (80.0-100.0); Mean Platelet Volume 9.2 fL (9.4-12.4); Monocytes # (auto) 0.72 K/uL (0.11-0.59); Monocytes % (auto) 12.3 %; Neutrophils # (auto) 3.47 K/uL (1.40-6.50); Neutrophils % (auto) 59.1 %; Platelet Count 201 K/uL (130-400); RDW Coefficient of Variation 12.4 % (11.5-14.5); Red Blood Count 3.68 M/uL (4.20-5.40); White Blood Count 5.87 K/ul (4.8-10.8)
[2024-02-01 08:00] LABS: BUN Creatinine Ratio 14.7 (10-20); Calcium 8.9 mg/dl (8.6-10.3); Creatinine Clr Calc Pharmacy 66.5 ml/min; Est GFR (African American) 99.9 ml/min; Est GFR (Non-African American) 86.2 ml/min; Potassium 3.7 mmol/L (3.5-5.1)
--- NOTE | 2024-02-01 14:41 | XRay Report ---
XR chest 1V portable CLINICAL HISTORY: Shortness of breath. COMPARISON STUDY: Chest radiograph and chest CT January 21, 2024. FINDINGS: Low lung volumes are again noted. There is a small right pleural effusion. Linear bibasilar opacities favor atelectasis. There is no consolidation to suggest pneumonia and there is no evidence for pulmonary edema. Cardiomediastinal silhouette is stable. IMPRESSION: 1. Small right pleural effusion. 2. Linear bibasilar densities suggestive of atelectasis. ACT 112: Negative or not required by law. Electronically signed by: Joshua Winston M.D. 02/01/2024 2:39 PM
[2024-02-01 15:42] LABS: Basophils # (auto) 0.02 K/uL (0.00-0.20); Basophils % (auto) 0.3 %; Eosinophils # (auto) 0.08 K/uL (0.00-0.50); Eosinophils % (auto) 1.4 %; Hematocrit (blood only) 34.9 % (37.0-47.0); Hemoglobin 11.9 g/dl (12.0-16.0); Immature Granulocytes # (auto) 0.03 K/uL (0.01-0.20); Immature Granulocytes % (auto) 0.5 %; Lymphocytes # (auto) 1.69 K/uL (1.20-3.40); Lymphocytes % (auto) 29.3 %; Mean Corpuscular Hemoglobin 32.2 pg (25.0-34.0); Mean Corpuscular Hgb Conc 34.1 g/dL (32.0-36.0); Mean Corpuscular Volume 94.3 fL (80.0-100.0); Mean Platelet Volume 9.1 fL (9.4-12.4); Monocytes # (auto) 0.72 K/uL (0.11-0.59); Monocytes % (auto) 12.5 %; Neutrophils # (auto) 3.23 K/uL (1.40-6.50); Platelet Count 212 K/uL (130-400); RDW Coefficient of Variation 12.3 % (11.5-14.5); RDW Standard Deviation 42.7 fL (36.4-46.3); White Blood Count 5.77 K/ul (4.8-10.8)
--- NOTE | 2024-02-01 16:55 | Hospitalist Progress Note ---
Date of Service February 01, 2024 Assessment & Plan (1) Closed compression fracture of lumbar vertebra: Plan: Severe back pain Has had constipation, and voided today but is not having urinary retention while in the ER. No saddle anesthesia. No lower extremity weakness. Was reviewed with orthopedic spine prior to admission will evaluate 01/29 CTlumbar spine: Unchanged appearance of subacute appearing burst type compression deformities at K3T8-Z0 compared to 01/21/2024, retropulsed fragments at all levels approximately 8 mm and moderate canal stenosis is noted at L3-L4. CTA/P: Multiple spinal compression fractures as noted above, and additionally T12 compression fracture redemonstrated and with loss of height compared to prior exam. Trace bilateral pleural effusions No leukocytosis Patient is with constipation. No urinary symptoms Lumbar MRI: A T10 vertebral acute/subacute fracture with loss of 50-60% body height. A L1 vertebra plana with posterior subluxation of the superior endplate and moderate central canal stenosis. L2-L4 levels chronic vertebral compression fractures with loss of 60-80% body heights. Orthospine consulted, recommendations pending. Will defer PT/OT and continue on bedrest until seen and evaluated Continue multimodal pain control. Lidocaine patch q12, calcitonin daily. Additional pain control w/ Tylenol first-line, scaled morphine for breakthrough. Pain is improved and tolerable following analgesic medications, but not resolved. 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 This is temporarily held on admission, and patient switched to low-dose heparin SQ pending orthopedic surgical evaluation; she remains in sinus. if recurrent afib/flutter --> heparin gtt Mild effusions but saturating normally on room air and otherwise appears relatively euvolemic Reviewed last [facility] cardiology note 11/2023. At that time noted last echo 09/2023: LVEF 55-59%, grade 1 diastolic dysfunction, moderate AV sclerosis, mild to moderate MR, LA normal, mild TR, no evidence of pulmonary hypertension. Last Isabel scan 2020 with normal myocardial wall motion. History of atrial tachycardia/A-fib/a flutter and uptitrate metoprolol as needed. 01/31 no surgical treatment restart Eliquis (3) Gastroesophageal reflux disease: Plan: - PPI (4) History of cerebrovascular accident: Plan: - LEFT arm numbness/tingling many years ago - Completely resolved. No residual deficits - On eliquis. Does not take aspirin or plaavix (5) Hypothyroidism: Plan: - Continue thyroid (6) Acute respiratory failure with hypoxemia: Plan: on oxygen, CXR no acute lung disease taper oxygen incentive spirometry Plan Anxiety Continue duloxetine History of osteoporosis w/ compression fractures Care appetite temporarily held while inpatient Calcium/vitamin D supplementation. Continue outpatient follow-up and management DVT PPx: heparin as noted Diet: NPO M/T due to pAfib DNR/DNI Admission and Anticipated Discharge Date Admission Date: January 29, 2024 Subjective severe back pain , denies fever, chills , remains on oxygen Review of Systems Review of Systems: All systems reviewed & are unremarkable except as noted in Subjective Physical Exam Physical Exam: head atraumatic neck supple chest CTA b/l abdomen soft, nt, nd, bs extremities no edema neuro AAO times 3 Results & Data Results & Data Vital Signs (Past 12 Hours) Vital Signs Temp Pulse Pulse Pulse Pulse Resp Resp 02/01/24 16:01 115 H 99 H 18 02/01/24 15:53 36.9 C 101 H 18 02/01/24 11:40 36.7 C 104 H 18 02/01/24 09:00 02/01/24 07:32 36.6 C 82 18 02/01/24 07:00 87 Resp BP BP Pulse Ox Pulse Ox Pulse Ox O2 Del Method 02/01/24 16:01 16 94 93 02/01/24 15:53 142/88 H 92 Room Air 02/01/24 11:40 122/80 96 Nasal Cannula 02/01/24 09:00 Nasal Cannula 02/01/24 07:32 111/72 90 Nasal Cannula 02/01/24 07:00 O2 Flow Rate 02/01/24 16:01 02/01/24 15:53 02/01/24 11:40 2 02/01/24 09:00 2 02/01/24 07:32 2 02/01/24 07:00 PG Care Time/CCT Total # of Minutes Spent Total Time Spent with Patient: Total time spent is greater than 50% in coordination of care (as documented) at patient's floor/unit and/or counseling patient: Coding Level of Care Code 11135 SUB INP/OBS CARE 235MIN Diagnoses Closed compression fracture of lumbar vertebra S32.000A Atrial flutter I48.92 Gastroesophageal reflux disease K21.9 History of cerebrovascular accident Z86.73 Hypothyroidism E03.9 Acute respiratory failure with hypoxemia J96.01
[2024-02-01] MEDS: APIXABAN 5 MG TABLET PO SCH (19:52)
[2024-02-02 06:38] LABS: BUN Creatinine Ratio 14.9 (10-20); Calcium 9.1 mg/dl (8.6-10.3); Creatinine Clr Calc Pharmacy 67.4 ml/min; Est GFR (African American) 100.4 ml/min; Est GFR (Non-African American) 86.6 ml/min; Potassium 3.8 mmol/L (3.5-5.1)
[2024-02-02 06:40] LABS: Basophils # (auto) 0.02 K/uL (0.00-0.20); Basophils % (auto) 0.3 %; Eosinophils % (auto) 1.6 %; Hematocrit (blood only) 34.4 % (37.0-47.0); Hemoglobin 11.9 g/dl (12.0-16.0); Immature Granulocytes # (auto) 0.04 K/uL (0.01-0.20); Immature Granulocytes % (auto) 0.6 %; Lymphocytes # (auto) 1.68 K/uL (1.20-3.40); Mean Corpuscular Hemoglobin 32.2 pg (25.0-34.0); Mean Corpuscular Hgb Conc 34.6 g/dL (32.0-36.0); Mean Corpuscular Volume 93.2 fL (80.0-100.0); Monocytes # (auto) 0.78 K/uL (0.11-0.59); Monocytes % (auto) 12.5 %; Neutrophils # (auto) 3.61 K/uL (1.40-6.50); Platelet Count 227 K/uL (130-400); RDW Coefficient of Variation 12.5 % (11.5-14.5); RDW Standard Deviation 42.7 fL (36.4-46.3); Red Blood Count 3.69 M/uL (4.20-5.40); White Blood Count 6.23 K/ul (4.8-10.8)
[2024-02-02 07:48] VITALS: RESP 18; TEMP 98.2; O2SAT 90
--- NOTE | 2024-02-02 09:59 | Electrocardiogram Report ---
Test Reason : Blood Pressure : */* mmHG Vent. Rate : 95 BPM Atrial Rate : 95 BPM P-R Int : 132 ms QRS Dur : 84 ms QT Int : 382 ms P-R-T Axes : 25 -9 10 degrees QTcB Int : 480 ms Normal sinus rhythm Nonspecific T wave abnormality Abnormal ECG When compared with ECG of 21-Jan-2024 16:35, Nonspecific T wave abnormality now evident in Lateral leads Confirmed by Pérez Herrera ([id number]) on 02/02/2024 9:58:43 AM Referred By: REFERRED SELF Confirmed By: Pérez Herrera
[2024-02-02] MEDS: oxyCODONE HCL IR 5 MG TAB (IMMEDIATE RELEASE) PO STA (11:24)
--- NOTE | 2024-02-02 15:09 | Discharge Summary ---
Discharge Summary Date of Service February 02, 2024 Principal Dx & Hospital Course #1 = Principal Diagnosis (1) Closed compression fracture of lumbar vertebra: Severe back pain Has had constipation, and voided today but is not having urinary retention while in the ER. No saddle anesthesia. No lower extremity weakness. Was reviewed with orthopedic spine prior to admission will evaluate 01/29 CTlumbar spine: Unchanged appearance of subacute appearing burst type compression deformities at D3R1-H0 compared to 01/21/2024, retropulsed fragments at all levels approximately 8 mm and moderate canal stenosis is noted at L3-L4. CTA/P: Multiple spinal compression fractures as noted above, and additionally T12 compression fracture redemonstrated and with loss of height compared to prior exam. Trace bilateral pleural effusions No leukocytosis Patient is with constipation. No urinary symptoms Lumbar MRI: A T10 vertebral acute/subacute fracture with loss of 50-60% body height. A L1 vertebra plana with posterior subluxation of the superior endplate and moderate central canal stenosis. L2-L4 levels chronic vertebral compression fractures with loss of 60-80% body heights. Orthospine consulted, recommendations pending. Will defer PT/OT and continue on bedrest until seen and evaluated Continue multimodal pain control. Lidocaine patch q12, calcitonin daily. Additional pain control w/ Tylenol first-line, scaled morphine for breakthrough. Pain is improved and tolerable following analgesic medications, but not resolved. No numbness/tingling or loss of strength noted on 01/29 exam 01/30 reports back pain, needs a brace, PT 01/31 patient is able to ambulate, continue pain meds , needs a new brace , stable for discharge after she gets fitted for a new brace (2) Atrial flutter: History of PFO, mild basal septal hypertrophy, paroxysmal A-fib, MAT Intolerant to verapamil/diltiazem/sotalol in the past Continue metoprolol SKI PATROL Eliquis for prophylaxis. This is temporarily held on admission, and patient switched to low-dose heparin SQ pending orthopedic surgical evaluation; she remains in sinus. if recurrent afib/flutter --> heparin gtt Mild effusions but saturating normally on room air and otherwise appears relatively euvolemic Reviewed last [facility] [place]. At that time noted last echo 09/2023: LVEF 55-59%, grade 1 diastolic dysfunction, moderate AV sclerosis, mild to moderate MR, LA normal, mild TR, no evidence of pulmonary hypertension. Last Isabel scan 2020 with normal myocardial wall motion. History of atrial tachycardia/A-fib/a flutter and uptitrate metoprolol as needed. 01/31 no surgical treatment restart Eliquis (3) Gastroesophageal reflux disease: - PPI (4) History of cerebrovascular accident: - LEFT arm numbness/tingling many years ago - Completely resolved. No residual deficits - On eliquis. Does not take aspirin or plaavix (5) Hypothyroidism: - Continue thyroid (6) Acute respiratory failure with hypoxemia: on oxygen, CXR no acute lung disease taper oxygen incentive spirometry respiratory failure resolved stable for discharge Plan Anxiety Continue duloxetine History of osteoporosis w/ compression fractures Care appetite temporarily held while inpatient Calcium/vitamin D supplementation. Continue outpatient follow-up and management DVT PPx: heparin as noted Diet: NPO M/T due to pAfib DNR/DNI Admission HPI Per Admitting Provider Adriana is a 74-year-old female with a PMHx of GERD, CVA, HLD, hypothyroidism, Lumbar compression fracture, anxiety who was seen 07/15/2023 for acute on chronic low back pain. At that time she was found to have subacute compression fractures at T10 without retropulsion, lumbar compression fractures with high- grade central canal stenosis at L3-L4 similar to 01/10/2023 were appreciated. 07/28 patient has multiple burst fractures with retropulsion and severe stenosis and presents with severe lower back pain, constipation, difficulty ambulating case was recommended reviewed by orthospine prior to admission. OK for admission, obtain MRI, and will be seen in consultation evaluation 01/29. Adriana reports her whole course when she was caring for her grandson in December who has CP who fell, and she had him fall on top of him so he would not get hurt. Has had professive back pain sinc cici Increased back pain x1 day. Could not get off the chair or walk due to severe pain. Normally can use a walker, but had to much pain to ambulate with this. Pain has been bad for ~2 weeks since she was in the ER in December, but was intolerable today. No numbness or tingling in the arms or legs Was able to be today, but was noted to have urinary retention in the ER that resolved with Da Silva placement Endorses constipation for over three weeks. Endorses some R flank pain. Denies nausea. No dysuria NO chest pain or chest pressure. No shortness of breath, but spasms take her breath away when they happen No fevers, no chills Does have a history of paroxysmal afib. In sinus at time of admission, she does not know when she is in it/does not feel her afib. No syncope/presyncope/lightheadedness/dizziness Medical History: Reviewed Medications: Reviewed Surgical History: Reviewed Family history: Reviewed Allergies: Reviewed. Allergic to iodinated contrast dye. Denies other medication allergies. No NSAIDs. Social History: No tobacco. No etoh. Code Status: DNR/DNI Discharge Exam head atraumatic neck supple chest CTA b/l abdomen soft, nt, nd, bs extremities no edema neuro AAO times 3 Updated Medication List Medication Instructions Recorded Confirmed Type olopatadine 0.1 % eye drops 1 drp ophthalmic (eye) DAILY #5 mL 09/08/22 01/29/24 Rx calcitonin (salmon) 200 1 spray intranasal (ALT) DAILY 12/23/22 01/29/24 Rx unit/actuation nasal spray #3.7 mL fluticasone propionate 50 2 spray intranasal DAILY PRN 01/15/23 01/29/24 History mcg/actuation nasal allergies spray,suspension polyethylene glycol 3350 17 gram 17 gm PO DAILY PRN Constipation 01/17/23 01/29/24 Rx oral powder packet (Miralax) #30 ea sennosides 8.6 mg-docusate sodium 1 tab PO HS #30 tabs 01/17/23 01/29/24 Rx 50 mg tablet (Senokot-S) ondansetron 4 mg disintegrating 4 - 8 mg (1 - 2 x 4 mg) 02/22/23 01/29/24 Rx tablet translingual BID PRN nausea and vomiting #30 tabs TENS units #1 ea 02/28/23 01/29/24 Rx TENS unit and electrodes combo pack #1 ea 04/03/23 01/29/24 Rx atorvastatin 80 mg tablet 80 mg PO HS #90 tabs 04/26/23 01/29/24 Rx magnesium oxide 400 mg PO DAILY #30 tabs 05/29/23 01/29/24 Rx levalbuterol tartrate 45 See Rx Instructions inhalation 07/25/23 01/29/24 Rx mcg/actuation aerosol inhaler .COMPLEX PRN shortness of breath (Xopenex HFA) or wheezing #15 grams nystatin 100,000 unit/gram topical 1 applic topical BID PRN ABD FOLDS 08/07/23 01/29/24 Rx cream NEEDED #30 grams cyclobenzaprine 5 mg tablet 5 mg PO TID PRN muscle spasm #30 09/13/23 01/29/24 Rx tabs Forteo 20 mcg/dose (600 mcg/2.4 20 mcg (0.08 mL) subcut DAILY #2.4 10/05/23 01/29/24 Rx mL) subcutaneous pen injector mL (teriparatide) apixaban 5 mg tablet (Eliquis) 5 mg PO BID #60 tabs 10/07/23 01/29/24 Rx levothyroxine 125 mcg tablet 125 mcg PO DAILYBB #90 tabs 10/07/23 01/29/24 Rx duloxetine 60 mg capsule,delayed 60 mg PO DAILY #90 caps 11/15/23 01/29/24 Rx release lorazepam 0.5 mg tablet 0.5 mg PO TID anxiety #90 tabs 11/22/23 01/29/24 Rx gabapentin 400 mg capsule 400 mg PO BID #60 caps 12/26/23 01/29/24 Rx lidocaine 4 % topical patch 1 patch topical QID PRN pain #60 ea 12/26/23 01/29/24 Rx (Salonpas (lidocaine)) pantoprazole 40 mg tablet,delayed 40 mg PO QAM #90 tabs 12/26/23 01/29/24 Rx release acetaminophen 500 mg tablet 500 mg PO Q4 PRN mild-moderate pain 01/29/24 01/29/24 History benzonatate 100 mg capsule 100 - 200 mg PO TID PRN Cough 01/29/24 01/29/24 History calcium carbonate (Tums) 1 tab PO DAILY 01/29/24 01/29/24 History ergocalciferol (vitamin D2) 1,250 1,250 mcg PO WK 01/29/24 01/29/24 History mcg (50,000 unit) capsule (Vitamin D2) metoprolol succinate 25 mg 37.5 mg PO HS 01/29/24 01/29/24 History tablet,extended release 24 hr omeprazole 40 mg capsule,delayed 40 mg PO QAM 01/29/24 01/29/24 History release oxycodone 5 mg tablet 5 mg PO Q6H PRN pain #20 tabs 02/02/24 Rx Hospital Stay Data Consultations 01/29/24 16:07 ED Decision to Admit Stat 01/30/24 12:27 Consult Orthopedic Spine Surgery Routine 02/02/24 11:00 Consult Case Management Ambulatory ONCE Diagnostic Imagining Performed 01/29/24 13:12 CT abd pelvis wo con Stat CT lumbar spine wo con Stat 01/29/24 16:30 MRI Lumbar Spine [MR lumbar spine wo con] Stat Pending Results Patient Have Any Pending Studies at Discharge: No Discharge Instructions Given to Patient (Per Discharging Provider) follow up with PCP Home Health Attestation I certify that this patient is under my care and that I, or a physicians customer service assistant working with me, had a face to-face encounter that meets the home health [id number] encounter requirements with this patient. The encounter with the patient was in whole, or in part, for the following medical condition, which is the primary reason for home health care (list medical condition): I certify that, based on my findings, the following services are medically necessary home health services: My clinical findings support the need for the above services because: Further, I certify that my clinical findings support that this patient is homebound (i.e. absences from home require considerable and taxing effort and are for medical reasons or scientology services or infrequently or of short duration when for other reasons) because: Certification for Home Health Services: Based on the above findings, I certify that this patient is confined to the home and needs intermittent senior living care, physical therapy and/or speech therapy or continues to need occupational therapy. The patient is under my care, and I have initiated the establishment of the plan of care. This patient will be followed by a physician who will periodically review the plan of care. Total Time Total Time Spent Total Time Spent (In Minutes): 40 min Coding Level of Care Code 18794 INP/OBS DISCH >30 MIN Diagnoses Closed compression fracture of lumbar vertebra S32.000A Atrial flutter I48.92 Gastroesophageal reflux disease K21.9 History of cerebrovascular accident Z86.73 Hypothyroidism E03.9 Acute respiratory failure with hypoxemia J96.01
[2024-02-02 16:19] VITALS: BP 117/73; PULSE 79
[2024-02-02] MEDS ORDERED: oxyCODONE HCL IR 5 MG TAB (IMMEDIATE RELEASE) PO PRN (16:45)
--- NOTE | 2024-02-05 06:04 | Coding Query ---
CODING QUERY To promote full compliance with coding requirements relating to patient care, provider participation is requested in all cases of marketing campaign analyst uncertainty. Please assist us with the question(s) below: Coding Question(s): Pt admitted with vertebral fractures of L2-L4. H/P states history of compression fractures with osteoporosis. Please document, if known or suspected, the etiology of the vertebral compression fractures. Thanks for your help! Nick Veras [facility] Physician's Response(s): Principal Diagnosis: "that condition established after study, to be chiefly responsible for occasioning the admission of the patient to the hospital for care." Co-Existing Principal Diagnosis: "when two or more diagnoses equally meet the criteria for principal diagnosis as determined by the circumstances of admission, diagnostic work up, and/or therapy provided, and the Alphabetic Index, Tabular List, or another coding guideline does not provide sequencing direction, any one of the diagnoses may be sequenced first." "When the physician has documented what appears to be a current diagnosis in the body of the record, but has not included the diagnosis in the final diagnostic statement, the physician should be asked whether the diagnosis should be added." (Source Coding [facility] 2 QTR90. p3-4) MARISELA
[2024-02-05] MEDS ORDERED: ERGOCALCIFEROL 1250 MCG (50,000 UNITS) CAP PO SCH (09:00)
--- NOTE | 2024-03-02 14:12 | Discharge Summary ---
Discharge Summary Date of Service March 02, 2024 Principal Dx & Hospital Course #1 = Principal Diagnosis (1) Closed compression fracture of lumbar vertebra: Severe back pain Has had constipation, and voided today but is not having urinary retention while in the ER. No saddle anesthesia. No lower extremity weakness. Was reviewed with orthopedic spine prior to admission will evaluate 01/29 CTlumbar spine: Unchanged appearance of subacute appearing burst type compression deformities at D8Y0-G7 compared to 01/21/2024, retropulsed fragments at all levels approximately 8 mm and moderate canal stenosis is noted at L3-L4. CTA/P: Multiple spinal compression fractures as noted above, and additionally T12 compression fracture redemonstrated and with loss of height compared to prior exam. Trace bilateral pleural effusions No leukocytosis Patient is with constipation. No urinary symptoms Lumbar MRI: A T10 vertebral acute/subacute fracture with loss of 50-60% body height. A L1 vertebra plana with posterior subluxation of the superior endplate and moderate central canal stenosis. L2-L4 levels chronic vertebral compression fractures with loss of 60-80% body heights. Orthospine consulted, recommendations pending. Will defer PT/OT and continue on bedrest until seen and evaluated Continue multimodal pain control. Lidocaine patch q12, calcitonin daily. Additional pain control w/ Tylenol first-line, scaled morphine for breakthrough. Pain is improved and tolerable following analgesic medications, but not resolved. 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 This is temporarily held on admission, and patient switched to low-dose heparin SQ pending orthopedic surgical evaluation; she remains in sinus. if recurrent afib/flutter --> heparin gtt Mild effusions but saturating normally on room air and otherwise appears relatively euvolemic Reviewed last [facility] [place]23. At that time noted last echo 09/2023: LVEF 55-59%, grade 1 diastolic dysfunction, moderate AV sclerosis, mild to moderate MR, LA normal, mild TR, no evidence of pulmonary hypertension. Last Isabel scan 2020 with normal myocardial wall motion. History of atrial tachycardia/A-fib/a flutter and uptitrate metoprolol as needed. 01/31 no surgical treatment restart Eliquis (3) Gastroesophageal reflux disease: - PPI (4) History of cerebrovascular accident: - LEFT arm numbness/tingling many years ago - Completely resolved. No residual deficits - On eliquis. Does not take aspirin or plaavix (5) Hypothyroidism: - Continue thyroid (6) Acute respiratory failure with hypoxemia: on oxygen, CXR no acute lung disease taper oxygen incentive spirometry respiratory failure resolved stable for discharge Plan Anxiety Continue duloxetine History of osteoporosis w/ compression fractures Care appetite temporarily held while inpatient Calcium/vitamin D supplementation. Continue outpatient follow-up and management DVT PPx: heparin as noted Diet: NPO M/T due to pAfib DNR/DNI Admission HPI Per Admitting Provider Adriana is a 74-year-old female with a PMHx of GERD, CVA, HLD, hypothyroidism, Lumbar compression fracture, anxiety who was seen 07/15/2023 for acute on chronic low back pain. At that time she was found to have subacute compression fractures at T10 without retropulsion, lumbar compression fractures with high- grade central canal stenosis at L3-L4 similar to 01/10/2023 were appreciated. 07/28 patient has multiple burst fractures with retropulsion and severe stenosis and presents with severe lower back pain, constipation, difficulty ambulating case was recommended reviewed by orthospine prior to admission. OK for admission, obtain MRI, and will be seen in consultation evaluation 01/29. Adriana reports her whole course when she was caring for her grandson in December who has CP who fell, and she had him fall on top of him so he would not get hurt. Has had professive back pain sinc cici Increased back pain x1 day. Could not get off the chair or walk due to severe pain. Normally can use a walker, but had to much pain to ambulate with this. Pain has been bad for ~2 weeks since she was in the ER in December, but was intolerable today. No numbness or tingling in the arms or legs Was able to be today, but was noted to have urinary retention in the ER that resolved with Da Silva placement Endorses constipation for over three weeks. Endorses some R flank pain. Denies nausea. No dysuria NO chest pain or chest pressure. No shortness of breath, but spasms take her breath away when they happen No fevers, no chills Does have a history of paroxysmal afib. In sinus at time of admission, she does not know when she is in it/does not feel her afib. No syncope/presyncope/lightheadedness/dizziness Medical History: Reviewed Medications: Reviewed Surgical History: Reviewed Family history: Reviewed Allergies: Reviewed. Allergic to iodinated contrast dye. Denies other medication allergies. No NSAIDs. Social History: No tobacco. No etoh. Code Status: DNR/DNI Discharge Exam head atraumatic neck supple chest CTA b/l abdomen soft, nt, nd, bs extremities no edema neuro AAO times 3 Discharge Plan Discharge Items Patient Disposition: Home - Home Health Services Reason For Visit: BACK PAIN, COMP FXR, PAFIB Discharge Diagnosis: compresion fx Activity: Per Instructions section Activity Comment: as tolerated Non-emergency contact: Primary Care Provider Call non-emergency contact if: you have any medication questions and your pain is concerning for you Follow-up/Referrals: Marianne Hurd MD [Primary Care Provider] - 02/12/24 3:00 pm Diet: Heart Healthy Addtl Attending Provider Instructions: follow up with PCP Pending Studies at Discharge: No Stand-Alone Forms: [employer], Smoking Cessation Medications and DC Order Prescriptions: Continued olopatadine 0.1 % drops 1 drp ophthalmic (eye) DAILY Qty: 5 5RF Rx Instructions: one drop each eye daily in am. ondansetron 4 mg tablet,disintegrating 4 - 8 mg translingual BID PRN (Reason: nausea and vomiting) Qty: 30 0RF magnesium oxide 400 mg magnesium tablet 400 mg PO DAILY Qty: 30 1RF levalbuterol tartrate [Xopenex HFA] 45 mcg/actuation HFA aerosol inhaler See Rx Instructions inhalation .COMPLEX PRN (Reason: shortness of breath or wheezing) Qty: 15 2RF Rx Instructions: 1-2 INH 4-6 hrs PRN; nystatin 100,000 unit/gram cream 1 applic topical BID PRN (Reason: ABD FOLDS NEEDED) Qty: 30 5RF teriparatide [Forteo] 20 mcg/dose (600mcg/2.4mL) pen injector 20 mcg subcut DAILY Qty: 2.4 3RF levothyroxine 125 mcg tablet 125 mcg PO DAILYBB Qty: 90 1RF Eliquis 5 mg tablet 5 mg PO BID Qty: 60 5RF Rx Instructions: ONLY 30 DAYS AT A TIME. duloxetine 60 mg capsule,delayed release(DR/EC) 60 mg PO DAILY Qty: 90 3RF lorazepam 0.5 mg tablet 0.5 mg PO TID Qty: 90 0RF calcitonin (salmon) 200 unit/actuation spray,non-aerosol 1 spray intranasal (ALT) DAILY Qty: 3.7 2RF pantoprazole 40 mg tablet,delayed release (DR/EC) 40 mg PO QAM Qty: 90 3RF lidocaine [Salonpas (lidocaine)] 4 % adhesive patch,medicated 1 patch topical QID PRN (Reason: pain) Qty: 60 5RF gabapentin 400 mg capsule 400 mg PO BID Qty: 60 5RF fluticasone propionate 50 mcg/actuation spray,suspension 2 spray INTNAS DAILY PRN (Reason: allergies) Rx Instructions: administer into each nostril sennosides-docusate sodium [Senokot-S] 8.6-50 mg Tablet 1 tab PO HS Qty: 30 0RF polyethylene glycol 3350 [Miralax] 17 gram powder in packet 17 gm PO DAILY PRN (Reason: Constipation) Qty: 30 0RF ergocalciferol (vitamin D2) [Vitamin D2] 1,250 mcg (50,000 unit) capsule 1,250 mcg PO WK metoprolol succinate 25 mg tablet extended release 24 hr 37.5 mg PO HS omeprazole 40 mg capsule,delayed release(DR/EC) 40 mg PO QAM Tums 300 mg (750 mg) tablet,chewable 1 tab PO DAILY acetaminophen 500 mg Tablet 500 mg PO Q4 PRN (Reason: mild-moderate pain) benzonatate 100 mg capsule 100 - 200 mg PO TID PRN (Reason: Cough) No Action cholecalciferol (vitamin D3) 10 mcg (400 unit) tablet 10 mcg PO BID Qty: 60 2RF atorvastatin 80 mg tablet 80 mg PO HS Qty: 90 1RF cyclobenzaprine 5 mg tablet 5 mg PO TID PRN (Reason: muscle spasm) Qty: 30 0RF tramadol 50 mg tablet 50 mg PO Q6H PRN (Reason: pain) Qty: 20 0RF (DME) TENS units Device See Rx Instructions .Route Qty: 1 0RF Rx Instructions: As directed (DME) TENS unit and electrodes Combo Pack See Rx Instructions .Route Qty: 1 0RF Rx Instructions: As directed Discharge Orders: Discharge Order (Routine); Ordered 02/02/24 Ordered By: Keke Us Admission Data Admit Date/Time: 01/29/24 17:48 Attending Provider: Keke Us Admit Provider: Denis Palacios Primary Care Provider: Marianne Hurd Other Providers: Denis Palacios; Sam Franklin; Steven Perez [facility] Other Interventions: Discharge Summary Assessment (RN) Last Done: 02/02/24 16:18 Hospital Stay Data Consultations 01/29/24 16:07 ED Decision to Admit Stat 01/30/24 12:27 Consult Orthopedic Spine Surgery Routine 02/02/24 11:00 Consult Case Management Ambulatory ONCE Diagnostic Imagining Performed 01/29/24 13:12 CT abd pelvis wo con Stat CT lumbar spine wo con Stat 01/29/24 16:30 MRI Lumbar Spine [MR lumbar spine wo con] Stat Pending Results Patient Have Any Pending Studies at Discharge: No Discharge Instructions Given to Patient (Per Discharging Provider) follow up with PCP Home Health Attestation I certify that this patient is under my care and that I, or a physicians lpn or medical assistant working with me, had a face to-face encounter that meets the home health [id number] encounter requirements with this patient. The encounter with the patient was in whole, or in part, for the following medical condition, which is the primary reason for home health care (list medical condition): I certify that, based on my findings, the following services are medically necessary home health services: My clinical findings support the need for the above services because: Further, I certify that my clinical findings support that this patient is homebound (i.e. absences from home require considerable and taxing effort and are for medical reasons or yazidism services or infrequently or of short duration when for other reasons) because: Certification for Home Health Services: Based on the above findings, I certify that this patient is confined to the home and needs intermittent assisted care, physical therapy and/or speech therapy or continues to need occupational therapy. The patient is under my care, and I have initiated the establishment of the plan of care. This patient will be followed by a physician who will periodically review the plan of care. Total Time Total Time Spent Total Time Spent (In Minutes): 40 min Coding Level of Care Code 27042 INP/OBS DISCH >30 MIN Diagnoses Closed compression fracture of lumbar vertebra S32.000A Atrial flutter I48.92 Gastroesophageal reflux disease K21.9 History of cerebrovascular accident Z86.73 Hypothyroidism E03.9 Acute respiratory failure with hypoxemia J96.01
== END 2024-02-02 16:50 | disposition home health service (06) | DRG 543 ==
LOC: ED 12:25 → SUATTDRO 17:48 → 2W 17:48
DX: I48.92 Unspecified atrial flutter; I48.20 Chronic atrial fibrillation, unspecified; R32 Unspecified urinary incontinence; K59.00 Constipation, unspecified; F41.9 Anxiety disorder, unspecified; Z66 Do not resuscitate; E03.9 Hypothyroidism, unspecified; I48.0 Paroxysmal atrial fibrillation; Z91.041 Radiographic dye allergy status; Z88.6 Allergy status to analgesic agent; Z79.890 Hormone replacement therapy; W19.XXXA Unspecified fall, initial encounter; M80.08XA Age-related osteoporosis with current pathological fracture, vertebra(e), initial encounter for fracture; K21.9 Gastro-esophageal reflux disease without esophagitis; Z87.891 Personal history of nicotine dependence; Y92.89 Other specified places as the place of occurrence of the external cause; Q21.12 Patent foramen ovale

== ENCOUNTER 2024-03-08 16:14 | Observation (INO) ==
--- NOTE | 2024-03-08 16:30 | Emergency Department Note ---
Impression & Plan COVID-19 ADMIT ED Provider Note HPI: History obtained from patient. The patient is a 74-year-old female with history of chronic lumbar back pain, close compression fractures of the lumbar spine, history of CVA, atrial fibrillation currently on Eliquis, presents the emergency department with a chief complaint of generalized weakness, shakiness, difficulty walking at home. Patient states that the symptoms seem to have correlated with her getting a flu shot 2 days ago. Patient states that she feels too weak to get around her house and she feels very "shaky". Patient denies any focal complaint of pain. On arrival here to the ED the patient is alert, she is somewhat listless appearing but she responds to my questions appropriately and she is alert and oriented x 3. Patient does not have any focal deficits on arrival. ROS: - Per HPI Differential Diagnosis: Viral upper respiratory infection to include COVID-19 infection, influenza A infection, acute bacterial pneumonia, CHF exacerbation, COPD, urinary tract infection, sepsis, stroke, intracranial hemorrhage, amongst other potential pathologies. *Outpatient medications and allergy history reviewed. PE: General: Alert, listless appearing, no acute distress HEENT: Normocephalic, trachea midline Eyes: Extraocular eye movement is intact, no scleral erythema Pulmonary: Clear to auscultation bilaterally, no wheezing Cardio: Regular rate and rhythm GI: Abdomen is soft to palpation : No suprapubic tenderness MSK: No evidence of trauma or malformation of the extremities, no edema Skin: No evidence of rash Neuro: Alert, no focal deficits, equal bilateral vp delivery strength, symmetrical facial movements are appreciated Psychiatric: Cooperative INDEPENDENT INTERPRETATIONS: satellite project site monitor: (As interpreted by myself): - An order was placed for continuous cardiac monitoring - Patient was noted to be in sinus rhythm with a rate of 95 EKG: (As interpreted by myself): Rate: 107 Rhythm: Sinus tachycardia Intervals: Within normal limits ST changes: No ST elevation Time: 1622 Chest x-ray: (As interpreted by myself): No acute disease Interventions provided in ED: -IV fluid bolus Medical Decision Making: IV was established and lab work obtained, patient was placed on secured entrance monitor. Lab work shows no leukocytosis, hemoglobin is stable, platelet count is normal, CMP does not show any evidence of any critical findings, lactic acid is within normal limits, troponin is negative, procalcitonin is low. Urinalysis does not show any obvious evidence of infection, viral panel testing was obtained and the patient is positive for COVID-19. CT imaging of the head was obtained that does not show any evidence of any acute intracranial injury. Patient has had some borderline hypoxia here in the ED, she was 88% on arrival and was placed on 2 L nasal cannula oxygen with good improvement. Chest x-ray does not show any evidence of obvious pneumonia. On my reassessment the patient states that she feels too weak to go home, she does not feel that she can ambulate, she states she feels weak and short of breath. I discussed the patient's presentation with the on-call hospitalist, Dr. Grissom, the patient was placed for admission in stable condition for further management of hypoxia with COVID-19 infection. Consultants/Discussions held with other healthcare providers: -Hospitalist, Dr. Grissom Disposition discussion held by myself with: -Patient and patient's daughter (Susan) over the phone. Diagnosis: 1. COVID-19 infection, acute 2. Hypoxia, acute 3. Generalized weakness with ambulatory dysfunction, acute Disposition: Admission Brody Cabrera DO Emergency Medicine Past Med/Surg History Problem List (Updated 03/08/24 @ 18:39 by Brody Cabrera DO) COVID-19 (Acute) Urinary incontinence (Acute) Lumbar back pain (Acute) Osteoporosis (Acute) Back pain of thoracolumbar region Closed compression fracture of lumbar vertebra (Acute) L4 Closed compression fracture of body of L1 vertebra (Acute 10/21/22) L1 and L2 Patellofemoral arthritis of right knee Patellofemoral arthritis of left knee Cholelithiases Mixed conductive and sensorineural hearing loss of right ear with restricted hearing of left ear Bee sting reaction (Chronic) Anxiety (Chronic) Adverse anesthesia outcome Hard time waking up Chronic rhinitis Right chronic serous otitis media ETD (eustachian tube dysfunction) right Arthritis Prediabetes (Chronic) Post traumatic stress disorder (PTSD) (Chronic) Pharyngitis, chronic (Chronic) Learning disability (Chronic) Laryngitis, chronic (Chronic) Hypothyroidism (Chronic 10/29/12) Hyperlipidemia (Chronic 10/29/12) History of cerebrovascular accident (Chronic) Gastroesophageal reflux disease (Chronic 10/29/12) Chronic allergic conjunctivitis (Chronic) Constipation (Chronic) Cystocele, midline (Chronic) Diaphragmatic hernia (Chronic) Gastroparesis (Chronic) HSV infection (Chronic) High triglycerides (Chronic) Low hemoglobin and low hematocrit (Chronic) Primary snoring (Chronic) Rectocele (Chronic) Rosacea (Chronic) Tension headache (Chronic) Vitamin D deficiency (Chronic) A-fib (Chronic) Medical History (Updated 03/08/24 @ 18:39 by Brody Cabrera DO) Numbness and tingling in left hand Left knee pain Conductive hearing loss of both ears SVT (supraventricular tachycardia) Surgical History Tympanic tube insertion 2019. History of tonsillectomy History of hysterectomy History of surgery Vaginal Reconstruction - 2012 History of colonoscopy No pertinent past surgical history Family History Father Colorectal cancer Coronary heart disease Prostate cancer Cancer Aunt Diabetes Mother Myocardial infarction Coronary heart disease Stroke Daughter Crohn's disease Asthma Son Allergic rhinitis Family/Other Anemia Child Other Family history non-contributory Denies family history of Ovarian cancer Breast cancer Social History Smoking Status: Former smoker Tobacco Type: Cigarettes Second Hand Exposure: No; Do You Dip or Chew Tobacco: No; Hx Alcohol Use: No Hx Substance Use: No Preferred Language: Singaporean Communication Ability: Effective Communication Ability Comment: poor reading ability Visual Impairment: No Limitations Hearing Ability: Normal Rotor Plate Washer Required: No Beliefs That Will Affect Care: None marital status: Current Living Situation: Spouse Current Living Situation Comment: pt reported she lives with her however he is not helpful current occupational status: retired How many Children do You have: 3 Feels Safe at Home: Yes Childhood Exposure to Second-Hand Smoke: Yes Diet: regular caffeine: Yes (Soda - occasional) during the past year weight has: remained stable Dental Care, Regularly: No Physical Activity Frequency: Does not Exercise Seatbelt Use: always Sunscreen Use: Yes Assistive Devices: Cane, Walker and Wheelchair Allergies Allergies Allergy/AdvReac Type Severity Reaction Status Date / Time bee venom protein (honey bee) Allergy Severe THROAT Verified 02/14/24 09:52 CLOSES/HIVES Iodinated Contrast Media Allergy Intermediate HIVES Verified 02/14/24 09:52 aspirin AdvReac Unknown CONTRAINDICATED Verified 02/14/24 09:52 WITH BLOOD THINNERS ibuprofen AdvReac Unknown CONTRAINDICATED Verified 02/14/24 09:52 WITH BLOOD THINNERS mushroom AdvReac Unknown Unknown Verified 02/14/24 09:52 pepper (genus Capsicum) AdvReac Unknown Unknown Verified 02/14/24 09:52 Home Meds Home Medications Medication Instructions Recorded Confirmed fluticasone propionate 50 2 spray intranasal DAILY PRN 01/15/23 02/14/24 mcg/actuation nasal allergies spray,suspension acetaminophen 500 mg tablet 500 mg PO Q4 PRN mild-moderate pain 01/29/24 02/14/24 benzonatate 100 mg capsule 100 - 200 mg PO TID PRN Cough 01/29/24 02/14/24 calcium carbonate (Tums) 1 tab PO DAILY 01/29/24 02/14/24 ergocalciferol (vitamin D2) 1,250 1,250 mcg PO WK 01/29/24 02/14/24 mcg (50,000 unit) capsule (Vitamin D2) metoprolol succinate 25 mg 37.5 mg PO HS 01/29/24 02/14/24 tablet,extended release 24 hr omeprazole 40 mg capsule,delayed 40 mg PO QAM 01/29/24 02/14/24 release Previous Rx's Medication Instructions Recorded olopatadine 0.1 % eye drops 1 drp ophthalmic (eye) DAILY #5 mL 09/08/22 calcitonin (salmon) 200 1 spray intranasal (ALT) DAILY 12/23/22 unit/actuation nasal spray #3.7 mL polyethylene glycol 3350 17 gram 17 gm PO DAILY PRN Constipation 01/17/23 oral powder packet (Miralax) #30 ea sennosides 8.6 mg-docusate sodium 1 tab PO HS #30 tabs 01/17/23 50 mg tablet (Senokot-S) ondansetron 4 mg disintegrating 4 - 8 mg (1 - 2 x 4 mg) 02/22/23 tablet translingual BID PRN nausea and vomiting #30 tabs TENS units #1 ea 02/28/23 TENS unit and electrodes combo pack #1 ea 04/03/23 magnesium oxide 400 mg PO DAILY #30 tabs 05/29/23 levalbuterol tartrate 45 See Rx Instructions inhalation 07/25/23 mcg/actuation aerosol inhaler .COMPLEX PRN shortness of breath (Xopenex HFA) or wheezing #15 grams nystatin 100,000 unit/gram topical 1 applic topical BID PRN ABD FOLDS 08/07/23 cream NEEDED #30 grams Forteo 20 mcg/dose (600 mcg/2.4 20 mcg (0.08 mL) subcut DAILY #2.4 10/05/23 mL) subcutaneous pen injector mL (teriparatide) apixaban 5 mg tablet (Eliquis) 5 mg PO BID #60 tabs 10/07/23 levothyroxine 125 mcg tablet 125 mcg PO DAILYBB #90 tabs 10/07/23 duloxetine 60 mg capsule,delayed 60 mg PO DAILY #90 caps 11/15/23 release lorazepam 0.5 mg tablet 0.5 mg PO TID anxiety #90 tabs 11/22/23 gabapentin 400 mg capsule 400 mg PO BID #60 caps 12/26/23 lidocaine 4 % topical patch 1 patch topical QID PRN pain #60 ea 12/26/23 (Salonpas (lidocaine)) pantoprazole 40 mg tablet,delayed 40 mg PO QAM #90 tabs 12/26/23 release cholecalciferol (vitamin D3) 10 10 mcg PO BID #60 tabs 02/09/24 mcg (400 unit) tablet atorvastatin 80 mg tablet 80 mg PO HS #90 tabs 02/22/24 cyclobenzaprine 5 mg tablet 5 mg PO TID PRN muscle spasm #30 02/22/24 tabs tramadol 50 mg tablet 50 mg PO Q6H PRN pain #20 tabs 02/22/24 Results & Data (ED) Vital Signs Vital Signs - 24 hr 03/08/24 16:24 03/08/24 16:44 03/08/24 17:00 Temperature 37.5 C Temperature Source Oral Pulse Rate 108 H 104 H 100 H Pulse Rate from SpO2 Sensor 100 H Pulse Rhythm Regular Pulse Strength Normal Respiratory Rate 24 22 Respiratory Effort / Characteristics Non-Labored Respiratory Depth Normal Respiratory Pattern Regular Blood Pressure 120/79 106/67 Blood Pressure Mean 92 80 Blood Pressure Position Lying Pulse Oximetry 88 L 95 Oxygen Delivery Method Room Air Sepsis Recent Fever Within 48 Hours No Sepsis New/Unexplained Change in Mental Status No Sepsis Action Taken by Nursing Physician Notified 03/08/24 19:13 Temperature Temperature Source Pulse Rate Pulse Rate from SpO2 Sensor Pulse Rhythm Pulse Strength Respiratory Rate Respiratory Effort / Characteristics Respiratory Depth Respiratory Pattern Blood Pressure Blood Pressure Mean Blood Pressure Position Pulse Oximetry Oxygen Delivery Method Room Air Sepsis Recent Fever Within 48 Hours Sepsis New/Unexplained Change in Mental Status Sepsis Action Taken by Nursing Laboratory Data 03/08/24 16:30 03/08/24 16:30 Lab Results 03/08/24 03/08/24 03/08/24 Range/Units 16:30 16:32 16:47 WBC 6.60 (4.8-10.8) K/ul RBC 4.04 L (4.20-5.40) M/uL Hgb 13.2 (12.0-16.0) g/dl Hct 37.5 (37.0-47.0) % MCV 92.8 (80.0-100.0) fL MCH 32.7 (25.0-34.0) pg MCHC 35.2 (32.0-36.0) g/dL RDW Std Deviation 44.0 (36.4-46.3) fL RDW Coeff of Mini 13.0 (11.5-14.5) % Plt Count 195 (130-400) K/uL MPV 9.3 L (9.4-12.4) fL Immature Gran % (Auto) 0.3 % Neut % (Auto) 39.4 % Lymph % (Auto) 41.1 % Coal % (Auto) 18.5 % Eos % (Auto) 0.2 % Baso % (Auto) 0.5 % Neut # (Auto) 2.61 (1.40-6.50) K/uL Lymph # (Auto) 2.71 (1.20-3.40) K/uL Coal # (Auto) 1.22 H (0.11-0.59) K/uL Eos # (Auto) 0.01 (0.00-0.50) K/uL Baso # (Auto) 0.03 (0.00-0.20) K/uL Immature Gran # (Auto) 0.02 (0.01-0.20) K/uL Sodium 135 L (136-145) mmol/L Potassium 3.6 (3.5-5.1) mmol/L Chloride 103 (98-107) mmol/L Carbon Dioxide 23 (21-32) mmol/L Anion Gap 9 (3-11) BUN 14 (6-23) mg/dl Creatinine 0.75 (0.6-1.2) mg/dl Est Cr Clr Drug Dosing 61.6 ml/min Est GFR ( Amer) 91.0 ml/min Est GFR (Non-Af Amer) 78.5 ml/min BUN/Creatinine Ratio 18.7 (10-20) Glucose 135 H (70-99(Fasting)) mg/dl Lactate 1.4 (0.4-2.0) mmol/L Calcium 9.1 (8.6-10.3) mg/dl Magnesium 1.7 (1.7-2.4) mg/dl Total Bilirubin 1.0 (0.2-1.0) mg/dl Direct Bilirubin 0.2 (0-0.2) mg/dl AST 32 (13-39) U/L ALT 19 (7-52) U/L Alkaline Phosphatase 86 (34-104) U/L Troponin I High Sens 3.0 (0-14) pg/ml Total Protein 7.4 (6.0-8.3) gm/dl Albumin 4.5 (3.4-5.0) gm/dl Procalcitonin 0.03 (0-0.5) ng/ml Urine Color Urine Appearance (Clear) Urine pH (4.5-7.5) Ur Specific Ariton (1.000-1.030) Urine Protein (Negative) Urine Glucose (UA) (Negative) Urine Ketones (Negative) Urine Blood (Negative) Urine Nitrite (Negative) Urine Bilirubin (Negative) Urine Urobilinogen (Negative) Ur Leukocyte Esterase (Negative) Urine WBC (Auto) (0-5) /hpf Urine RBC (Auto) (0-2) /hpf U Hyaline Cast (Auto) (0-2) /lpf U Epithel Cells (Auto) (0-2) /hpf Urine Bacteria (Auto) (None Seen) Adenovirus (PCR) Not Detected (NotDetected) B. pertussis DNA (PCR) Not Detected (NotDetected) B.parapertussis DNA PCR Not Detected (NotDetected) C. pneumoniae DNA (PCR) Not Detected (NotDetected) Coronavirus OC43 (PCR) Not Detected (NotDetected) Coronavirus HKU1 (PCR) Not Detected (NotDetected) Coronavirus 229E (PCR) Not Detected (NotDetected) SARS-CoV-2 (PCR) DETECTED A (NotDetected) Coronavirus NL63 (PCR) Not Detected (NotDetected) Human Metapneumovir PCR Not Detected (NotDetected) Influenza Type A (PCR) Not Detected (NotDetected) Influenza Type B (PCR) Not Detected (NotDetected) M. pneumoniae (PCR) Not Detected (NotDetected) Parainfluenza 1 (PCR) Not Detected (NotDetected) Parainfluenza 2 (PCR) Not Detected (NotDetected) Parainfluenza 3 (PCR) Not Detected (NotDetected) Parainfluenza 4 (PCR) Not Detected (NotDetected) RSV (PCR) Not Detected (NotDetected) Entero/Rhino (PCR) Not Detected (NotDetected) 03/08/24 Range/Units 19:29 WBC (4.8-10.8) K/ul RBC (4.20-5.40) M/uL Hgb (12.0-16.0) g/dl Hct (37.0-47.0) % MCV (80.0-100.0) fL MCH (25.0-34.0) pg MCHC (32.0-36.0) g/dL RDW Std Deviation (36.4-46.3) fL RDW Coeff of Mini (11.5-14.5) % Plt Count (130-400) K/uL MPV (9.4-12.4) fL Immature Gran % (Auto) % Neut % (Auto) % Lymph % (Auto) % Coal % (Auto) % Eos % (Auto) % Baso % (Auto) % Neut # (Auto) (1.40-6.50) K/uL Lymph # (Auto) (1.20-3.40) K/uL Coal # (Auto) (0.11-0.59) K/uL Eos # (Auto) (0.00-0.50) K/uL Baso # (Auto) (0.00-0.20) K/uL Immature Gran # (Auto) (0.01-0.20) K/uL Sodium (136-145) mmol/L Potassium (3.5-5.1) mmol/L Chloride (98-107) mmol/L Carbon Dioxide (21-32) mmol/L Anion Gap (3-11) BUN (6-23) mg/dl Creatinine (0.6-1.2) mg/dl Est Cr Clr Drug Dosing ml/min Est GFR ( Amer) ml/min Est GFR (Non-Af Amer) ml/min BUN/Creatinine Ratio (10-20) Glucose (70-99(Fasting)) mg/dl Lactate (0.4-2.0) mmol/L Calcium (8.6-10.3) mg/dl Magnesium (1.7-2.4) mg/dl Total Bilirubin (0.2-1.0) mg/dl Direct Bilirubin (0-0.2) mg/dl AST (13-39) U/L ALT (7-52) U/L Alkaline Phosphatase (34-104) U/L Troponin I High Sens (0-14) pg/ml Total Protein (6.0-8.3) gm/dl Albumin (3.4-5.0) gm/dl Procalcitonin (0-0.5) ng/ml Urine Color Yellow Urine Appearance Clear (Clear) Urine pH 5.5 (4.5-7.5) Ur Specific Ariton 1.020 (1.000-1.030) Urine Protein Negative (Negative) Urine Glucose (UA) Negative (Negative) Urine Ketones Negative (Negative) Urine Blood Negative (Negative) Urine Nitrite Negative (Negative) Urine Bilirubin Negative (Negative) Urine Urobilinogen Negative (Negative) Ur Leukocyte Esterase Trace H (Negative) Urine WBC (Auto) 0-5 (0-5) /hpf Urine RBC (Auto) 3-5 H (0-2) /hpf U Hyaline Cast (Auto) 0-2 (0-2) /lpf U Epithel Cells (Auto) 6-10 H (0-2) /hpf Urine Bacteria (Auto) None Seen (None Seen) Adenovirus (PCR) (NotDetected) B. pertussis DNA (PCR) (NotDetected) B.parapertussis DNA PCR (NotDetected) C. pneumoniae DNA (PCR) (NotDetected) Coronavirus OC43 (PCR) (NotDetected) Coronavirus HKU1 (PCR) (NotDetected) Coronavirus 229E (PCR) (NotDetected) SARS-CoV-2 (PCR) (NotDetected) Coronavirus NL63 (PCR) (NotDetected) Human Metapneumovir PCR (NotDetected) Influenza Type A (PCR) (NotDetected) Influenza Type B (PCR) (NotDetected) M. pneumoniae (PCR) (NotDetected) Parainfluenza 1 (PCR) (NotDetected) Parainfluenza 2 (PCR) (NotDetected) Parainfluenza 3 (PCR) (NotDetected) Parainfluenza 4 (PCR) (NotDetected) RSV (PCR) (NotDetected) Entero/Rhino (PCR) (NotDetected) Administered Medications Discontinued Medications Sodium Chloride (Nss) 1,000 mls @ 999 mls/hr IV .Q1H1M EMA Stop: 03/08/24 17:30 Last Infusion: 03/08/24 17:41 Dose: Infused Documented By: [facility] Admin: 03/08/24 16:40 Dose: 999 mls/hr Documented By: [facility] Imaging Data Radiologist's Impression: Chest X-Ray 03/08/24 16:27 XR chest 1V portable HISTORY: 74 years-old Female Sepsis COMPARISON: 02/01/2024 TECHNIQUE: AP view of the chest FINDINGS: Cardiac silhouette is enlarged. Mild linear bibasilar subsegmental opacities. No pneumothorax, pleural effusion or overt pulmonary edema. Bones appear grossly intact. IMPRESSION: 1. Cardiomegaly without pulmonary edema. 2. Mild linear bibasilar atelectasis. ACT 112: Negative or not required by law. The above report was generated using voice recognition software. It may contain grammatical, syntax or spelling errors. Electronically signed by: Taras Clark M.D. 03/08/2024 4:[address] 03/08/24 17:37 CT head/brain wo con CLINICAL HISTORY: 74 years-old Female with weakness, confusion. Acute weakness with altered mental status TECHNIQUE: Multiple axial CT images of the head were obtained without contrast. A dose lowering technique was utilized adhering to the principles of ALARA. CT DOSE: 703.85 mGy.cm COMPARISON: 01/12/2023 FINDINGS: No acute intracranial hemorrhage, midline shift, intracranial mass, hydrocephalus, territorial ischemia or abnormal extra-axial collection. Involutional changes with chronic microvascular disease. Chronic right frontal infarct. Chronic left lentiform nuclear lacunar infarct. The calvarium is intact. [id number] mucosal thickening of the ethmoid air cells. Mastoid air cells appear clear. IMPRESSION: No acute intracranial abnormality identified. ACT 112: Negative or not required by law. The above report was generated using voice recognition software. It may contain grammatical, syntax or spelling errors. Electronically signed by: Taras Clark M.D. 03/08/2024 6:27 PM Discharge Plan Visit Data Chief Complaint: Lethargic Stated Complaint: WEAKNESS ED Provider: Brody Cabrera Discharge Problem: COVID-19 Patient Disposition: Home - Self-Care Condition: Good Discharge Instructions Brittany/Other Patient Handouts: 2019 Novel Coronavirus Activity Restrictions/Additional Instructions: Please follow-up with your primary care doctor in 2 to 3 days for reassessment and further management. Please utilize Tylenol at home as needed for any fever/chills or bodyaches. Please follow dosage instructions as indicated on the packaging. Please return to the ER if you have any new or worsening symptoms. Forms Stand Alone Forms: My [facility], Important Visit Information Prescriptions Prescriptions: No Action olopatadine 0.1 % drops 1 drp ophthalmic (eye) DAILY Qty: 5 5RF Rx Instructions: one drop each eye daily in am. ondansetron 4 mg tablet,disintegrating 4 - 8 mg translingual BID PRN (Reason: nausea and vomiting) Qty: 30 0RF magnesium oxide 400 mg magnesium tablet 400 mg PO DAILY Qty: 30 1RF levalbuterol tartrate [Xopenex HFA] 45 mcg/actuation HFA aerosol inhaler See Rx Instructions inhalation .COMPLEX PRN (Reason: shortness of breath or wheezing) Qty: 15 2RF Rx Instructions: 1-2 INH 4-6 hrs PRN; nystatin 100,000 unit/gram cream 1 applic topical BID PRN (Reason: ABD FOLDS NEEDED) Qty: 30 5RF teriparatide [Forteo] 20 mcg/dose (600mcg/2.4mL) pen injector 20 mcg subcut DAILY Qty: 2.4 3RF levothyroxine 125 mcg tablet 125 mcg PO DAILYBB Qty: 90 1RF Eliquis 5 mg tablet 5 mg PO BID Qty: 60 5RF Rx Instructions: ONLY 30 DAYS AT A TIME. duloxetine 60 mg capsule,delayed release(DR/EC) 60 mg PO DAILY Qty: 90 3RF lorazepam 0.5 mg tablet 0.5 mg PO TID Qty: 90 0RF cholecalciferol (vitamin D3) 10 mcg (400 unit) tablet 10 mcg PO BID Qty: 60 2RF atorvastatin 80 mg tablet 80 mg PO HS Qty: 90 1RF cyclobenzaprine 5 mg tablet 5 mg PO TID PRN (Reason: muscle spasm) Qty: 30 0RF tramadol 50 mg tablet 50 mg PO Q6H PRN (Reason: pain) Qty: 20 0RF calcitonin (salmon) 200 unit/actuation spray,non-aerosol 1 spray intranasal (ALT) DAILY Qty: 3.7 2RF (DME) TENS units Device See Rx Instructions .Route Qty: 1 0RF Rx Instructions: As directed (DME) TENS unit and electrodes Combo Pack See Rx Instructions .Route Qty: 1 0RF Rx Instructions: As directed pantoprazole 40 mg tablet,delayed release (DR/EC) 40 mg PO QAM Qty: 90 3RF lidocaine [Salonpas (lidocaine)] 4 % adhesive patch,medicated 1 patch topical QID PRN (Reason: pain) Qty: 60 5RF gabapentin 400 mg capsule 400 mg PO BID Qty: 60 5RF fluticasone propionate 50 mcg/actuation spray,suspension 2 spray INTNAS DAILY PRN (Reason: allergies) Rx Instructions: administer into each nostril sennosides-docusate sodium [Senokot-S] 8.6-50 mg Tablet 1 tab PO HS Qty: 30 0RF polyethylene glycol 3350 [Miralax] 17 gram powder in packet 17 gm PO DAILY PRN (Reason: Constipation) Qty: 30 0RF ergocalciferol (vitamin D2) [Vitamin D2] 1,250 mcg (50,000 unit) capsule 1,250 mcg PO WK metoprolol succinate 25 mg tablet extended release 24 hr 37.5 mg PO HS omeprazole 40 mg capsule,delayed release(DR/EC) 40 mg PO QAM Tums 300 mg (750 mg) tablet,chewable 1 tab PO DAILY acetaminophen 500 mg Tablet 500 mg PO Q4 PRN (Reason: mild-moderate pain) benzonatate 100 mg capsule 100 - 200 mg PO TID PRN (Reason: Cough) Referrals Referrals: Marianne Hurd MD [Primary Care Provider] -
[2024-03-08] MEDS: SODIUM CHLORIDE 0.9% 1,000 ML IV SCH (16:40)
--- NOTE | 2024-03-08 16:45 | XRay Report ---
XR chest 1V portable HISTORY: 74 years-old Female Sepsis COMPARISON: 02/01/2024 TECHNIQUE: AP view of the chest FINDINGS: Cardiac silhouette is enlarged. Mild linear bibasilar subsegmental opacities. No pneumothorax, pleura l effusion or overt pulmonary edema. Bones appear grossly intact. IMPRESSION: 1. Cardiomegaly without pulmonary edema. 2. Mild linear bibasilar atelectasis. ACT 112: Negative or not required by law. The above report was generated using voice recognition software. It may contain grammatical, syntax o r spelling errors. Electronically signed by: Taras Clark M.D. 03/08/2024 4:44 PM
[2024-03-08 16:49] LABS: Basophils # (auto) 0.03 K/uL (0.00-0.20); Basophils % (auto) 0.5 %; Eosinophils # (auto) 0.01 K/uL (0.00-0.50); Eosinophils % (auto) 0.2 %; Hematocrit (blood only) 37.5 % (37.0-47.0); Hemoglobin 13.2 g/dl (12.0-16.0); Immature Granulocytes # (auto) 0.02 K/uL (0.01-0.20); Immature Granulocytes % (auto) 0.3 %; Lymphocytes # (auto) 2.71 K/uL (1.20-3.40); Lymphocytes % (auto) 41.1 %; Mean Corpuscular Hemoglobin 32.7 pg (25.0-34.0); Mean Corpuscular Hgb Conc 35.2 g/dL (32.0-36.0); Mean Corpuscular Volume 92.8 fL (80.0-100.0); Mean Platelet Volume 9.3 fL (9.4-12.4); Monocytes # (auto) 1.22 K/uL (0.11-0.59); Monocytes % (auto) 18.5 %; Neutrophils # (auto) 2.61 K/uL (1.40-6.50); Neutrophils % (auto) 39.4 %; Platelet Count 195 K/uL (130-400); Red Blood Count 4.04 M/uL (4.20-5.40)
[2024-03-08 17:06] LABS: Albumin Level 4.5 gm/dl (3.4-5.0); BUN Creatinine Ratio 18.7 (10-20); Bilirubin Direct 0.2 mg/dl (0-0.2); Calcium 9.1 mg/dl (8.6-10.3); Creatinine Clr Calc Pharmacy 61.6 ml/min; Est GFR (Non-African American) 78.5 ml/min; Magnesium 1.7 mg/dl (1.7-2.4); Potassium 3.6 mmol/L (3.5-5.1); Total Protein 7.4 gm/dl (6.0-8.3)
[2024-03-08 17:54] LABS: Adenovirus PCR Not Detected (NotDetected); Bordetella parapertussis PCR Not Detected (NotDetected); Bordetella pertussis PCR Not Detected (NotDetected); Chlamydia pneumoniae PCR Not Detected (NotDetected); Coronavirus 229E PCR Not Detected (NotDetected); Coronavirus CoV-2 (COVID19)PCR DETECTED (NotDetected); Coronavirus HKU1 PCR Not Detected (NotDetected); Coronavirus NL63 PCR Not Detected (NotDetected); Coronavirus OC43PCR Not Detected (NotDetected); Human Metapneumovirus PCR Not Detected (NotDetected); Influenza A PCR Not Detected (NotDetected); Influenza B PCR Not Detected (NotDetected); Mycoplasma pneumoniae PCR Not Detected (NotDetected); Parainfluenza Virus 1 PCR Not Detected (NotDetected); Parainfluenza Virus 2 PCR Not Detected (NotDetected); Parainfluenza Virus 3 PCR Not Detected (NotDetected); Parainfluenza Virus 4 PCR Not Detected (NotDetected); Respiratory Syncytial VirusPCR Not Detected (NotDetected); Rhinovirus/Enterovirus PCR Not Detected (NotDetected)
--- NOTE | 2024-03-08 18:28 | CT Scan Report ---
CT head/brain wo con CLINICAL HISTORY: 74 years-old Female with weakness, confusion. Acute weakness with altered mental s tatus TECHNIQUE: Multiple axial CT images of the head were obtained without contrast. A dose lowering tech nique was utilized adhering to the principles of ALARA. CT DOSE: 703.85 mGy.cm COMPARISON: 01/12/2023 FINDINGS: No acute intracranial hemorrhage, midline shift, intracranial mass, hydrocephalus, territorial ischem ia or abnormal extra-axial collection. Involutional changes with chronic microvascular disease. Chron ic right frontal infarct. Chronic left lentiform nuclear lacunar infarct. The calvarium is intact. [id number] mucosal thickening of the ethmoid air cells. Mastoid air c ells appear clear. IMPRESSION: No acute intracranial abnormality identified. ACT 112: Negative or not required by law. The above report was generated using voice recognition software. It may contain grammatical, syntax o r spelling errors. Electronically signed by: Taras Clark M.D. 03/08/2024 6:27 PM
[2024-03-08 19:43] LABS: Bacteria Urine Automated None Seen (None Seen); Cast Urine Automated 0-2 /lpf (0-2); WBC Urine Automated 0-5 /hpf (0-5)
[2024-03-08 19:55] LABS: Appearance Urine Clear (Clear); Bilirubin Urine Negative (Negative); Blood Urine Negative (Negative); Color Urine Yellow; Glucose Urine UA Negative (Negative); Ketones Urine Negative (Negative); Leukocyte Esterase Urine Trace (Negative); Nitrite Urine Negative (Negative); Protein Urine Negative (Negative); Urobilinogen Urine Negative (Negative); pH Urine 5.5 (4.5-7.5)
--- NOTE | 2024-03-08 20:18 | History & Physical Report ---
Date of Service March 08, 2024 Assessment & Plan (1) COVID-19: Plan: 3 day hx of tiredness. This AM unable to get up from toilet seat - felt too weak and shaky. In the ER tested COVID + Sats 90-91 % on room air in ER, with O2 2L sats maintaining at 94-95%. Lungs clear on auscultation. CXR lungs clear, mild cardiomegaly. Plan: O2 Sup. to maintain > 94% Dexamethasone 10mg IV stat and 10mg tomorrow. Azithromycin 500mg PO stat and daily for 5 days. IVF Telemetry f/u TSH, CPK Covid isolation precautions. Present on Admission?: Yes (2) Acute respiratory failure with hypoxia: Plan: due to COVID infection. Plan: as above (3) A-fib: Plan: Known hx of chronic Afib. on Eliquis Hx Palpitations recently. Denies any chest pain, SoB. EKG on admission today Sinus Tachy. (108) now at 92. (10/17) Echo LVEF 55-59% Plan: Tele Aim K>4, Mg>2 Po Mag stat and BID Po K 40mg anticoagulation: c/w Eliquis 5mg BID Rate control: c/w Metoprolol succinate 37.5 OD AM labs repeat EKG (4) Lumbar back pain: Plan: known hx of fracture. on analgesics. and TENs at home. Plan: c/w home analgesic meds. Monitor. Plan for rest of the chronic conditions continue with her usual home meds. Hypothyroidism CVA Anxiety Vit D def History of Present Illness Chief Complaint: 3 day hx of lethargy. Primary Care Provider: Marianne Hurd MD This is a 74 y/o lady with PMHx of Paroxysmal AFib (on Eliquis), CVA, chronic lumbar back pain (Hx lumbar compression #), Hypothyroidism, GERD, came in with generalized weakness. Pt says that for the last 3 days she has been feeling tired and this AM she was unable to get up from the toilet seat and felt shaky. Denies any fevers, chills, runny nose, cough, SoB or Denies any fall or head injury. Pt denies any headache, confusion, photophobia,rash, nausea or vomiting. no diarrhea, no urinary sx, no hx of constipation. Pt says she doesn't go out much, lives with her (who has been having cough sx lately), she walks around at home with aid of her walker and she usually manages her ADLs on her own. Pt says that she had her Flu shot 3 days ago. In the ER pt was found to be Covid positive and mildly hypoxic 90-91% on room air. Allergies Allergy/AdvReac Type Severity Reaction Status Date / Time bee venom protein (honey bee) Allergy Severe THROAT Verified 02/14/24 09:52 CLOSES/HIVES Iodinated Contrast Media Allergy Intermediate HIVES Verified 02/14/24 09:52 aspirin AdvReac Unknown CONTRAINDICATED Verified 02/14/24 09:52 WITH BLOOD THINNERS ibuprofen AdvReac Unknown CONTRAINDICATED Verified 02/14/24 09:52 WITH BLOOD THINNERS mushroom AdvReac Unknown Unknown Verified 02/14/24 09:52 pepper (genus Capsicum) AdvReac Unknown Unknown Verified 02/14/24 09:52 Home Medications Medication Instructions Recorded Confirmed Type olopatadine 0.1 % eye drops 1 drp ophthalmic (eye) DAILY #5 mL 09/08/22 02/14/24 Rx calcitonin (salmon) 200 1 spray intranasal (ALT) DAILY 12/23/22 02/14/24 Rx unit/actuation nasal spray #3.7 mL fluticasone propionate 50 2 spray intranasal DAILY PRN 01/15/23 02/14/24 History mcg/actuation nasal allergies spray,suspension polyethylene glycol 3350 17 gram 17 gm PO DAILY PRN Constipation 01/17/23 02/14/24 Rx oral powder packet (Miralax) #30 ea sennosides 8.6 mg-docusate sodium 1 tab PO HS #30 tabs 01/17/23 02/14/24 Rx 50 mg tablet (Senokot-S) ondansetron 4 mg disintegrating 4 - 8 mg (1 - 2 x 4 mg) 02/22/23 02/14/24 Rx tablet translingual BID PRN nausea and vomiting #30 tabs TENS units #1 ea 02/28/23 02/14/24 Rx TENS unit and electrodes combo pack #1 ea 04/03/23 02/14/24 Rx magnesium oxide 400 mg PO DAILY #30 tabs 05/29/23 02/14/24 Rx levalbuterol tartrate 45 See Rx Instructions inhalation 07/25/23 02/14/24 Rx mcg/actuation aerosol inhaler .COMPLEX PRN shortness of breath (Xopenex HFA) or wheezing #15 grams nystatin 100,000 unit/gram topical 1 applic topical BID PRN ABD FOLDS 08/07/23 02/14/24 Rx cream NEEDED #30 grams Forteo 20 mcg/dose (600 mcg/2.4 20 mcg (0.08 mL) subcut DAILY #2.4 10/05/23 02/14/24 Rx mL) subcutaneous pen injector mL (teriparatide) apixaban 5 mg tablet (Eliquis) 5 mg PO BID #60 tabs 10/07/23 02/14/24 Rx levothyroxine 125 mcg tablet 125 mcg PO DAILYBB #90 tabs 10/07/23 02/14/24 Rx duloxetine 60 mg capsule,delayed 60 mg PO DAILY #90 caps 11/15/23 02/14/24 Rx release lorazepam 0.5 mg tablet 0.5 mg PO TID anxiety #90 tabs 11/22/23 02/14/24 Rx gabapentin 400 mg capsule 400 mg PO BID #60 caps 12/26/23 02/14/24 Rx lidocaine 4 % topical patch 1 patch topical QID PRN pain #60 ea 12/26/23 02/14/24 Rx (Salonpas (lidocaine)) pantoprazole 40 mg tablet,delayed 40 mg PO QAM #90 tabs 12/26/23 02/14/24 Rx release acetaminophen 500 mg tablet 500 mg PO Q4 PRN mild-moderate pain 01/29/24 02/14/24 History benzonatate 100 mg capsule 100 - 200 mg PO TID PRN Cough 01/29/24 02/14/24 History calcium carbonate (Tums) 1 tab PO DAILY 01/29/24 02/14/24 History ergocalciferol (vitamin D2) 1,250 1,250 mcg PO WK 01/29/24 02/14/24 History mcg (50,000 unit) capsule (Vitamin D2) metoprolol succinate 25 mg 37.5 mg PO HS 01/29/24 02/14/24 History tablet,extended release 24 hr omeprazole 40 mg capsule,delayed 40 mg PO QAM 01/29/24 02/14/24 History release cholecalciferol (vitamin D3) 10 10 mcg PO BID #60 tabs 02/09/24 02/14/24 Rx mcg (400 unit) tablet atorvastatin 80 mg tablet 80 mg PO HS #90 tabs 02/22/24 Rx cyclobenzaprine 5 mg tablet 5 mg PO TID PRN muscle spasm #30 02/22/24 Rx tabs tramadol 50 mg tablet 50 mg PO Q6H PRN pain #20 tabs 02/22/24 Rx Past Med/Surg History Problem List (Updated 03/08/24 @ 22:02 by Juan Ga MD) Acute respiratory failure with hypoxia COVID-19 (Acute) Urinary incontinence (Acute) Lumbar back pain (Acute) Osteoporosis (Acute) Back pain of thoracolumbar region Closed compression fracture of lumbar vertebra (Acute) L4 Closed compression fracture of body of L1 vertebra (Acute 10/21/22) L1 and L2 Patellofemoral arthritis of right knee Patellofemoral arthritis of left knee Cholelithiases Mixed conductive and sensorineural hearing loss of right ear with restricted hearing of left ear Bee sting reaction (Chronic) Anxiety (Chronic) Adverse anesthesia outcome Hard time waking up Chronic rhinitis Right chronic serous otitis media ETD (eustachian tube dysfunction) right Arthritis Prediabetes (Chronic) Post traumatic stress disorder (PTSD) (Chronic) Pharyngitis, chronic (Chronic) Learning disability (Chronic) Laryngitis, chronic (Chronic) Hypothyroidism (Chronic 10/29/12) Hyperlipidemia (Chronic 10/29/12) History of cerebrovascular accident (Chronic) Gastroesophageal reflux disease (Chronic 10/29/12) Chronic allergic conjunctivitis (Chronic) Constipation (Chronic) Cystocele, midline (Chronic) Diaphragmatic hernia (Chronic) Gastroparesis (Chronic) HSV infection (Chronic) High triglycerides (Chronic) Low hemoglobin and low hematocrit (Chronic) Primary snoring (Chronic) Rectocele (Chronic) Rosacea (Chronic) Tension headache (Chronic) Vitamin D deficiency (Chronic) A-fib (Chronic) Medical History (Updated 03/08/24 @ 22:02 by Juan Ga MD) Numbness and tingling in left hand Left knee pain Conductive hearing loss of both ears SVT (supraventricular tachycardia) Surgical History Tympanic tube insertion 2019. History of tonsillectomy History of hysterectomy History of surgery Vaginal Reconstruction - 2012 History of colonoscopy No pertinent past surgical history Family History Father Colorectal cancer Coronary heart disease Prostate cancer Cancer Aunt Diabetes Mother Myocardial infarction Coronary heart disease Stroke Daughter Crohn's disease Asthma Son Allergic rhinitis Family/Other Anemia Child Other Family history non-contributory Denies family history of Ovarian cancer Breast cancer Social History Smoking Status: Former smoker Tobacco Type: Cigarettes Second Hand Exposure: No; Do You Dip or Chew Tobacco: No; Hx Alcohol Use: No Hx Substance Use: No Preferred Language: Macanese Communication Ability: Effective Communication Ability Comment: poor reading ability Visual Impairment: No Limitations Hearing Ability: Normal Alum Plant Supervisor Required: No Beliefs That Will Affect Care: None marital status: Current Living Situation: Spouse Current Living Situation Comment: pt reported she lives with her however he is not helpful current occupational status: retired How many Children do You have: 3 Feels Safe at Home: Yes Childhood Exposure to Second-Hand Smoke: Yes Diet: regular caffeine: Yes (Soda - occasional) during the past year weight has: remained stable Dental Care, Regularly: No Physical Activity Frequency: Does not Exercise Seatbelt Use: always Sunscreen Use: Yes Assistive Devices: Walker Review of Systems Review of Systems: As per HPI Physical Exam Physical Exam: General: Alert and oriented AOx3. HEENT: Normocephalic, moist oral mucosa, Cardio: hs S1S2, Regular rate and rhythm, tachy, Resp: on O2 2L NC, sats 94-95%, Lungs clear to auscultation b/l, no wheezes or rhonchi, GI: Soft and nontender, nondistended, bowel sounds active Skin: Warm, pink, dry, Psych: Mood-affect congruence. Extremities: Normal range of motion, 5/5 strength, normal sensory b/l, no edema Neuro: CN II-XII grossly intact, no focal deficits Results & Data Results & Data Vital Signs (Past 12 Hours) Vital Signs Temp Pulse Resp BP Pulse Ox O2 Del Method 03/08/24 19:13 Room Air 03/08/24 17:00 100 H 22 106/67 95 03/08/24 16:44 104 H 03/08/24 16:24 37.5 C 108 H 24 120/79 88 L Room Air Supervising Physician Co-Signing Physician Notes Attending addendum: I have physically seen this patient, have supervised the medical residents activities, and agree with the H&P unless as otherwise noted. Assessment and Plan: COVID-19 infection/acute respiratory failure with hypoxia- Primary symptoms of fatigue and mild hypoxia Initial saturation on room air 90-91%, improved to 94-95% with 2 L of oxygen Give dexamethasone 10 mg IV now, and then 6 mg IV every morning azithromycin 5 mg p.o. daily IV fluids as noted Albuterol HFA 2 puffs 4 times daily as needed COVID-19 precautions Atrial fibrillation/hypertension- Admit to monitored bed Troponin at 3 Continue apixaban and metoprolol succinate Hypomagnesemia- Magnesium 1.7 on admission, will increase oral dosing to twice daily Chronic lumbar pain- Continue TENS unit Remaining orders and notations as noted Resident Activity Tracking Resident Involvement: Resident Care Provided Care Provided: Adult Hospital Medicine (3) A-fib Atrial fibrillation type: paroxysmal Qualified Code(s): I48.0 - Paroxysmal atrial fibrillation
--- OUTSIDE RECORDS SUMMARY | 2024-03-08 21:40 | External Medical Summary | Summary of Care ---
Author Name Unknown Organization [facility] Address [address] [facility] [place] [address] Phone [phone] Care Team Providers Care Branch Director Name Role Phone Marianne Hurd MD Primary Care Provider Reason for Visit * Reason Onset Date Comments Test Results 11/21/2023 Brody chaves Encounter Details Date Type Department Care Team (Late st Contact Info) Description 11/21/2023 Telephone Cardiology, [facility] [address] [place] [address] Brody Martínez PA-C [address] [facility] [place] [place] [id number] Test Results (Brody Martínez patient) Allergies Active Allergy Reactions Criticality Noted Date Comments Aspirin Other (Please comment) 04/05/2022 Ibuprofen Other (Please comment) 04/05/2022 Iodinated Contrast Media Edema airway,Hives High documented as of this encounter (statuses as of 02/20/2024) Medications Medication Sig Dispensed Refills Start Date End Date Status ONE-A-DAY VITACRAVES PO CHEW 03/19/2014 Active nystatin-triamcino lone (MYCOLOG) creamIndications:D ermatitis Apply topically to affected area 2 times a day. Apply to stomach flap 15 g 1 10/10/2014 Active LORAzepam (ATIVAN) 0.5 MG TabletIndications: Anxiety Take 1 Tab by mouth 3 times a day as needed for Anxiety. 90 Tab 0 10/13/2014 Active Cholecalciferol 25 MCG (1000 UT) Oral Tablet Chewable 2000 units daily 02/23/2016 Act trevon meclizine (ANTIVERT) 25 MG TabletIndications: Dizziness Take 1 Tablet by mouth every 6 hours as needed for Dizziness. 30 Tab 1 02/23/2016 Active omeprazole (PRILOSEC) 40 MG CPDR Take 1 Capsule by mouth in the morning. 5 10/19/2016 Active ondansetron ODT (ZOFRAN) [address] 2 Tablets under the tongue as needed. 3 03/13/2017 Active fluticasone (FLONASE) 50 MCG/ACT nasal spray Administer 1 [place] into nostril in the morning. Active ELIQUIS 5 MG Tablet TAKE ONE TABLET BY MOUTH TWICE DAILY FOR 30 DAYS 0 11/14/2017 Active Polyethylene Glycol 3350 17 GM/SCOOP Oral Powder Take 17 g by mouth in the morning. Active Diclofenac Sodium 1 % External Gel 06/15/2020 Active Benzonatate 100 MG Oral Capsule (Tessalon Perles) Take one capsule By Mouth three times a day x 5 days 12/20/2020 Active Levalbuterol Tartrate 45 MCG/ACT Inhalation Aerosol (Xopenex Hfa) 07/27/2021 Active Atorvastatin Calcium 80 MG Oral Tablet (Lipitor) Take 1 Tablet by mouth in the morning. 90 Tablet 3 07/25/2022 Active Levothyroxine Sodium 125 MCG Oral Tablet (Levoxyl) Take 1 Tablet by mouth in the morning. In the morning.. 07/13/2022 Active Olopatadine HCl 0.1 % Ophthalmic Solution (Patanol) USE 1 DROP IN EACH EYE EVERY MORNING 08/11/2022 Active Alendronate Sodium 70 MG Oral Tablet (Fosamax) 70 mg orally once weekly Take with lg glass of water on empty stomach at least 30 min before eating 03/24/2023 Active Calcitonin ([place]) 200 UNIT/ACT Nasal Solution (Fortical) 1 spray intranasally into one nostril(alternate) daily Active Citracal Petites/Vitamin D 200-6.25 MG-MCG Oral Tablet Take 1 Tablet by mouth in the morning and 1 Tablet before bedtime. 05/25/2023 Active DULoxetine HCl 30 MG Oral Capsule Delayed Release Particles (Cymbalta) Take 1 Capsule by mouth in the morning. 05/24/2023 Active Vitamin D (Ergocalciferol) 1.25 MG (88361 UT) Oral Capsule (Drisdol) TAKE ONE CAPSULE WEEKLY FOR 10 WEEKS 03/13/2023 Active documented as of this encounter (statuses as of 02/20/2024) Active Problems Problem Noted Date Diagnosed Date Paroxysmal atrial fibrillation 12/21/2018 Cerebrovascular accident (CVA) due to embolism 0 12/21/2018 Post traumatic stress disorder 04/16/2014 Anxiety 08/13/2013 Atrial flutter 08/08/2013 Atrial tachycardia, multifocal 08/08/2013 Atrial tachycardia 08/08/2013 Dyslipidemia, goal LDL below 70 08/16/2010 Vitamin D deficiency 04/10/2010 Sciatica 02/15/2010 Other chronic allergic conjunctivitis 12/09/2009 Chronic pharyngitis 10/07/2009 Gastroparesis 10/07/2009 Diaphragmatic hernia 10/07/2009 Dyspnea and respiratory abnormality 10/07/2009 Overview: ICD-10 update of inactive term Chronic laryngitis 10/07/2009 History of tobacco use 10/07/2009 Unequal leg length 04/16/2009 Other osteoporosis without current pathological fracture 11/26/2007 Overview: ICD-10 update of inactive term Other allergic rhinitis 10/24/2007 Overview: ICD-10 update of inactive term Other specified gastritis without mention of hem orrhage 02/13/2007 Overview: mild gastritis ADVANCE DIRECTIVE INFORMATION 10/31/2005 Overview: No, Advance Directive brochure offered , patient declined. BENIGN NEOPLASM LG BOWEL 01/09/2003 FAM HX-DIABETES MELLITUS 01/09/2003 ACQUIRED HYPOTHYROID NEC Constipation Overview: ICD-10 update of inactive term Reflux esophagitis GENERALIZED ANXIETY DIS Family history of colon cancer documented as of this encounter (statuses as of 02/20/2024) Resolved Problems Problem Noted Date Diagnosed Date Resolved Date Dyslipidemia, goal to be determined 06/11/2009 02/15/2010 Overview: Per Lipid Taxonomy. Mixed dyslipidemia 9 Overview: Per Lipid Taxonomy. documented as of this encounter (statuses as of 02/20/2024) Immunizations Name Administration Dates Next Due COVID-19 mRNA, LNP-s, No Pre serve, 2-Dose Series (Moderna) 08/29/2020,07/25/2020 Season Influenza, Quad, PF, Adjuvanted, 65+ Yrs, IM (FLUAD) 04/04/2023 Seasonal Influenza, Split, I IV3, With Preserve, Inj 03/05/2018,02/25/2014,03/22/2013, 0 12,04/19/2011,03/16/2010,04/16/2009,04/10,04/23/2007,05/05/2006 TDAP, Age 7 and older, IM (Adacel) 04/10/2008 documented as of this encounter Social History Tobacco Use Types Packs/Day Years Used Date Smoking Tobacco: Former Cigarettes 1 25 0 08/24/1974 - 08/25/1999 Smokeless Tobacco: Never Alcohol Use Standard Drinks/Week Comments No 0 (1 standard drink = 0.6 oz pur e alcohol) PHQ-2 Answer Date Recorded PHQ-2 Score 0 05/03/2018 Utilities Answer Date Recorded Do you have trouble paying y our heating, water, or electric bill? (Adult - for ages 18 years and over) Not on file 12/12/2023 Is your family able to pay t he heat, water, or electric bill? (Household - for ages 0-17 years) Not on file 12/12/2023 Does your family have access to good internet? (Household - for ages 0-17 years) Not on file 12/12/2023 Social Connections Answer Date Recorded How often do you feel lonely or isolated from those around you? (Adult - for ages 18 years and over) Not on file 12/12/2023 Sex and Gender Information Value Date Recorded Sex Assigned at Not on file Gender Identity Not on file Sexual Orientation Not on file Job Start Date Occupation Industry Not on file Not on file Not on file documented as of this encounter Miscellaneous Notes * Telephone Encounter - Shikha Galvin CMA - 11/22/2023 11:08 AM EDT Per 11/16 result note from Brody, he called the patient personally and spoke with her about her cMRI results. * Telephone Encounter - Keke Rehman OSA - 11/21/2023 1:32 PM EDT Person calling: Adriana Relationship to patient: self Number to return call: [phone] Reason for call(brief): Test results Pharmacy: na Provider Name: Brody Martínez PA-C Detailed message to office:pt calling in for test results - (my transfer button was not working so could not transfer) - please call pt with results * Telephone Encounter - Duke Garcia OSA - 11/21/2023 9:11 AM EDT Person calling: Adriana Machuca Relationship to patient: self Number to return call: [phone] Reason for call(brief): Test Results Provider Name:Brody Martínez PA-C Detailed message to office: Patient calling requesting Cardiac MRI results. Patient had testing completed 11/10/23 & results are in EPIC. Thank You, Duke Goldberg [phone] documented in this encounter Plan of Treatment Upcoming Encounters Date Type Department Care Team (Late st Contact Info) Description 03/25/2024 1:30 PM EDT Imaging Radiology [address] [place] [address] 06/25/2024 9:00 AM EST Office Visit Cardiology [address] [place] [address] Brody Martínez PA-C [address] [place] [address] Health Maintenance Due Date Last Done Comments Cologuard 1995 Colonoscopy 1995 Sigmoidoscopy 1995 Colorectal Cancer Screening 08/27/2009 Fecal Occult Blood Test 08/26/2010 08/26/2009 DXA Scan 03/22/2015 03/22/2013, 12/24, 11/23/2007 DTap/Tdap Vaccines (2 - Td or Tdap) 04/10/2018 04/10/2008 Depression Screening 04/03/2019 04/03/2018 COVID-19 Vaccine ( season) 2023 03/30/2023, 08/29/2020, 07/25/2020 Influenza Vaccine (FLU shot) (#1) 2024 04/04/2023, 03/02/2023, 03/01/2022, Additional history exists Mammogram 03/23/2024 03/23/2023, 09/0 11/2021, 02/25/2020, Additional history exists TSH 04/18/2024 04/18/2023, 08/0 08/2022, 11/01/2022, Additional history exists RETIRED - COLONOSCOPY-EVERY 5 YRS AGES 18-100 Discontinued 03/02/2006 (Done elsewhere) VITAMIN D LEVEL ONCE IN A LIFETIME-USE SMARTSET# 31208 Completed 07/29/2014, 02/07/2014, 10/16/2013, Additional history exists Pneumococcal Vaccine: 65+ Years Completed 09/04/2018, 01/12/2016 Zoster Vaccines Completed 05/12/2020, 02/20/2020 HPV (Gardasil) Vaccine Aged Out No lo nger eligible based on patient's age to complete this topic Hepatitis B Vaccine Aged Out No longe r eligible based on patient's age to complete this topic MENINGOCOCCAL (MENACTRA/MENVEO) Aged Out No longer eligible based on patient's age to complete this topic documented as of this encounter Medical Devices Not on filedocumented as of this encounter Care Teams Branch Director Relationship Specialty Start Date End Date Marianne Hurd MD [address] [place] [address] PCP - General Family Medicine 12/09/14 documented as of this encounter
--- OUTSIDE RECORDS SUMMARY | 2024-03-08 21:40 | External Medical Summary | Summary of Care ---
Author Name Unknown Organization [facility] Address [address] [place] [address] Phone [phone] Care Team Providers Care Drywall Finisher Name Role Phone Marianne Hurd MD Primary Care Provider Encounter Details Date Type Department Care Team (Late st Contact Info) Description 02/21/2024 Orders Only Radiology [address] [place] [address] Requisition, External Radiology [address] [place] [address] Screening mammogram for high-risk patient* Allergies Active Allergy Reactions Criticality Noted Date Comments Aspirin Other (Please comment) 04/05/2022 Ibuprofen Other (Please comment) 04/05/2022 Iodinated Contrast Media Edema airway,Hives High documented as of this encounter (statuses as of 02/21/2024) Medications Medication Sig Dispensed Refills Start Date [...] (FLONASE) 50 MCG/ACT nasal spray Administer 1 Herman into nostril in the morning. Active ELIQUIS [...] 30 min before eating 03/24/2023 Active Calcitonin ([place]) 200 UNIT/ACT Nasal Solution (Fortical) 1 spray intranasally into one nostril(alternate) daily Active Citracal Petites/Vitamin D 200-6.25 MG-MCG Oral Tablet Take 1 Tablet by mouth in the morning and 1 Tablet before bedtime. 05/25/2023 Active DULoxetine HCl 30 MG Oral Capsule Delayed Release Particles (Cymbalta) Take 1 Capsule by mouth in the morning. 05/24/2023 Active Vitamin D (Ergocalciferol) 1.25 MG (99511 UT) Oral Capsule (Drisdol) TAKE ONE CAPSULE WEEKLY FOR 10 WEEKS 03/13/2023 Active Gabapentin 300 MG Oral Capsule (Neurontin) Take 1 Capsule by mouth in the morning and 1 Capsule before bedtime. 12/12/2023 Active Metoprolol Succinate ER 25 MG Oral Tablet Extended Release 24 Hour (toPROL XL)Indications:Pal pitations,Atrial flutter, unspecified type (HCC),Atrial tachycardia (HCC) Take 1.5 Tablets by mouth in the morning. 135 Tablet 3 01/08/2024 Active documented as of this encounter (statuses as of 02/21/2024) Active Problems Problem Noted Date Diagnosed Date [...] as of this encounter (statuses as of 02/21/2024) Resolved Problems Problem Noted Date Diagnosed Date Resolved Date Dyslipidemia, goal to be determined 06/11/2009 02/15/2010 Overview: Per Lipid Taxonomy. Mixed dyslipidemia 9 Overview: Per Lipid Taxonomy. documented as of this encounter (statuses as of 02/21/2024) Immunizations Name Administration Dates Next Due COVID-19 [...] on file documented as of this encounter Plan of Treatment Upcoming Encounters Date Type Department Care Team (Late st Contact Info) Description 03/25/2024 1:30 PM EDT Imaging Radiology [address] [place] [address] 06/25/2024 9:00 AM EST Office Visit Cardiology [address] [place] [address] Brody Martínez PA-C [address] [place] [address] Scheduled Orders Name Type Priority Associated Diagnoses Orde r Schedule MAMMOGRAM SCREENING ANTHONY BILATERAL Medical Imaging Routine Screening mammogram for high-risk patient Expected: 02/21/2024, Expires: 03/23/2025 Health Maintenance Due Date Last Done Comments [...] 03/01/2022, Additional history exists Mammogram 03/23/2024 03/23/2023, 11/2021, 02/25/2020, Additional history exists TSH 04/18/2024 04/18/2023, 08/2022, 11/01/2022, Additional history exists RETIRED - COLONOSCOPY-EVERY 5 YRS AGES 18-100 Discontinued 03/02/2006 (Done elsewhere) VITAMIN D LEVEL ONCE IN A LIFETIME-USE SMARTSET# [id number] Completed 07/29/2014, 02/07/2014, 10/16/2013, Additional history exists [...] Not on filedocumented as of this encounter Visit Diagnoses Diagnosis Screening mammogram for high-risk patient- Primary documented in this encounter Care Teams Drywall Finisher Relationship Specialty Start Date End Date Marianne Hurd MD [address] [place] [address] [place] [address] PCP - General Family Medicine 12/09/14 documented as of this encounter
[2024-03-08] MEDS: DEXAMETHASONE SOD INJ 4 MG/ML VIAL IV STA (22:06)
[2024-03-08] MEDS: POTASSIUM CHLORIDE CRTAB 20 MEQ TABCR PO STA (22:06)
[2024-03-08] MEDS: MAGNESIUM OXIDE 400 MG TAB PO STA (22:06)
[2024-03-08] MEDS: AZITHROMYCIN 250 MG TAB PO ONE (22:06)
[2024-03-08] MEDS: LACTATED RINGER'S 1,000 ML IV SCH (22:07)
[2024-03-08] MEDS ORDERED: POLYETHYLENE (MIRALAX) 17 GM PACK PO PRN (23:14)
[2024-03-08] MEDS ORDERED: LEVALBUTEROL TARTRATE 15 GM HFA.AER.AD INH PRN (23:14)
[2024-03-08] MEDS ORDERED: NYSTATIN CR 15 GM TUBE EXT PRN (23:14)
[2024-03-08] MEDS ORDERED: traMADol HCL 50 MG TABLET PO PRN (23:14)
[2024-03-08] MEDS ORDERED: LIDOCAINE 5% 1 PATCH TD PRN (23:54)
[2024-03-09] MEDS: DOCUSATE SODIUM/SENNA 50/8.6MG TAB PO SCH (00:01)
[2024-03-09] MEDS: LORazepam 0.5 MG TAB PO SCH (00:01)
[2024-03-09] MEDS: APIXABAN 5 MG TABLET PO SCH (00:01)
[2024-03-09] MEDS: GABAPENTIN 400 MG CAP PO SCH (00:01)
[2024-03-09] MEDS: ATORVASTATIN 40 MG TAB PO SCH (00:02)
[2024-03-09] MEDS: BENZONATATE 100 MG CAPSULE PO PRN (00:02)
[2024-03-09] MEDS: CHOLECALCIFEROL 10 MCG (400 UNITS) TAB PO SCH (00:02)
[2024-03-09 00:09] LABS: Thyroid Stimulating Hormone 1.107 uIu/ml (0.300-4.500)
[2024-03-09 03:18] VITALS: RESP 18
[2024-03-09] MEDS: LEVOTHYROXINE SODIUM 125 MCG TABLET PO SCH (05:56)
[2024-03-09 07:51] LABS: Basophils # (auto) 0.01 K/uL (0.00-0.20); Basophils % (auto) 0.4 %; Hematocrit (blood only) 33.1 % (37.0-47.0); Hemoglobin 11.6 g/dl (12.0-16.0); Immature Granulocytes # (auto) 0.01 K/uL (0.01-0.20); Immature Granulocytes % (auto) 0.4 %; Lymphocytes # (auto) 1.03 K/uL (1.20-3.40); Lymphocytes % (auto) 38.7 %; Mean Corpuscular Hemoglobin 32.3 pg (25.0-34.0); Mean Corpuscular Volume 92.2 fL (80.0-100.0); Mean Platelet Volume 9.4 fL (9.4-12.4); Monocytes # (auto) 0.11 K/uL (0.11-0.59); Monocytes % (auto) 4.1 %; Neutrophils % (auto) 56.4 %; Platelet Count 167 K/uL (130-400); RDW Coefficient of Variation 12.8 % (11.5-14.5); RDW Standard Deviation 43.8 fL (36.4-46.3); Red Blood Count 3.59 M/uL (4.20-5.40); White Blood Count 2.66 K/ul (4.8-10.8)
[2024-03-09 08:08] LABS: Albumin Globulin Ratio 1.5 (0.9-2); BUN Creatinine Ratio 19.6 (10-20); Bilirubin,Total 0.8 mg/dl (0.2-1.0); Calcium 8.9 mg/dl (8.6-10.3); Creatinine Clr Calc Pharmacy 86.7 ml/min; Est GFR (African American) 106.5 ml/min; Est GFR (Non-African American) 91.9 ml/min; Globulin 2.6 gm/dl (2.5-4.0); Potassium 4.1 mmol/L (3.5-5.1); Total Protein 6.6 gm/dl (6.0-8.3)
[2024-03-09] MEDS: dexAMETHasone 6 MG in SYRINGE 0 ML IV SCH (08:51)
[2024-03-09] MEDS: DULoxetine HCL 60 MG CAP PO SCH (08:51)
[2024-03-09] MEDS: MAGNESIUM OXIDE 400 MG TAB PO SCH (08:52)
[2024-03-09] MEDS: PANTOprazole 40 MG TAB PO SCH (08:52)
[2024-03-09] MEDS: ACETAMINOPHEN 500 MG TAB PO PRN (11:34)
[2024-03-09] MEDS: AZITHROMYCIN 250 MG TAB PO SCH (11:35)
[2024-03-09] MEDS: METOPROLOL TARTRATE 25 MG TAB PO STA ×3 (13:49→18:09)
--- NOTE | 2024-03-09 14:11 | Hospitalist Progress Note ---
Date of Service March 09, 2024 Assessment & Plan (1) Acute respiratory failure with hypoxia: Plan: 74 yo F admitted on 03/08/24 with weakness, found to be covid 19 positive in ER. (1) COVID-19: - symtpoms started on 03/05/24 (only manifestation seems to be weakness) - satting > 90% on room air now -- required minimal supplemental O2 on arrival (ie 2L via NC) - CXR normal (no evidence of superimposed PNA) - Dexamethasone + Azithromycin - admitting team did not start her on Remdesirvir or paxlovid although her renal function would allow for it -- she does not appear to be severely ill -- will hold off on initiating - Covid isolation precautions. (2) Acute respiratory failure with hypoxia: Plan: - due to COVID infection - now resolved (3) A-fib: Plan: - Known hx of chronic afib - EKG on admission showing Sinus Tach - K and Mag both normal; TSH also wNL - anticoagulation: c/w Eliquis 5mg BID - Rate control: c/w Metoprolol succinate 37.5 OD (4) Tachycardia - HR running in low 100s to 115 - EKG showing sinus tach - anemia not implicated; TSH normal, electrolytes normal - pain in hip/area is being treated with acetaminophen and likely to be MSK in origin - suspect this is being induced by Dexamethasone - on metoprolol succinate 37.5mg daily for afib -- additional 12.5mg tartrate dose given this afternoon - remain on tele (5) Lumbar back pain: Plan: known hx of fracture. on analgesics. and TENs at home. Plan: c/w home analgesic meds -- ie gabapentin, Cymbalta and tramadol prn Monitor. Plan: Full Code Dispo: Tele due to tachycardia --> downgrade once HR reduces --> likely straight home upon discharge; consider PT eval tomorrow Admission and Anticipated Discharge Date Admission Date: March 08, 2024 Subjective Feeling better -- some mild RLQ/hip discomfort Review of Systems Review of Systems: All systems reviewed & are unremarkable except as noted in HPI & below Physical Exam Physical Exam: General Appearance: well-developed, well-nourished older adult woman in no acute distress HEENT: NC/AT. Sclera anicteric. CV: Regular rhythm. + tachycardic. S1 and S2 appreciated. No murmurs, clicks, gallops or rubs. Lungs: CTA in all lung ames bilaterally with equal air movement. No wheezes, rales, rhonchi or crackles. Skin: warm, dry, and intact Neuro: AAO x 3. No focal deficits. Psych: Appropriate mood and affect. Results & Data Results & Data Vital Signs (Past 12 Hours) Vital Signs Temp Pulse Pulse Resp BP Pulse Ox O2 Del Method 03/09/24 13:45 103 H 03/09/24 11:57 Room Air 03/09/24 11:10 36.6 C 107 H 18 108/71 90 Room Air 03/09/24 07:25 36.7 C 98 H 18 106/69 91 Room Air 03/09/24 07:09 93 H 03/09/24 02:54 36.8 C 86 18 117/69 91 Room Air PG Care Time/CCT Total # of Minutes Spent Total Time Spent with Patient: Total time spent is greater than 50% in coordination of care (as documented) at patient's floor/unit and/or counseling patient: [place] [id number] SUB INP/OBS CARE 2/35MIN Patient Type Established Diagnoses Acute respiratory failure with hypoxia J96.01
[2024-03-09] MEDS: METOPROLOL SUCC 25MG EXT REL TAB PO SCH (21:24)
[2024-03-09] MEDS: CYCLOBENZAPRINE HCL 5 MG TAB PO PRN (21:52)
[2024-03-10 07:21] VITALS: BP 123/75; PULSE 90; TEMP 98.2; O2SAT 96
--- NOTE | 2024-03-10 13:05 | Electrocardiogram Report ---
Test Reason : Blood Pressure : */* mmHG Vent. Rate : 107 BPM Atrial Rate : 107 BPM P-R Int : 132 ms QRS Dur : 84 ms QT Int : 350 ms P-R-T Axes : 11 -5 0 degrees QTcB Int : 467 ms Sinus tachycardia Nonspecific T wave abnormality Abnormal ECG When compared with ECG of 01-Feb-2024 17:07, No significant change was found Confirmed by Andrey Townsend ([id number]) on 03/10/2024 1:05:00 PM Referred By: REFERRED SELF Confirmed By: Andrey Townsend
--- NOTE | 2024-03-10 19:07 | Billing Data ---
Date of Service March 10, 2024 Coding Level of Care Code 39023 INT INP/OBS CARE
--- NOTE | 2024-03-11 11:12 | Discharge Summary ---
Date of Service March 11, 2024 Admission HPI Per Admitting Provider This is a 74 y/o lady with PMHx of Paroxysmal AFib (on Eliquis), CVA, chronic lumbar back pain (Hx lumbar compression #), Hypothyroidism, GERD, came in with generalized weakness. Pt says that for the last 3 days she has been feeling tired and this AM she was unable to get up from the toilet seat and felt shaky. Denies any fevers, chills, runny nose, cough, SoB or Denies any fall or head injury. Pt denies any h eadache, confusion, photophobia,rash, nausea or vomiting. no diarrhea, no urinary sx, no hx of constipation. Pt says she doesn't go out much, lives with her (who has been having cough sx lately), she walks around at home with aid of her walker and she usually manages her ADLs on her own. Pt says that she had her Flu shot 3 days ago. In the ER pt was found to be Covid positive and mildly hypoxic 90-91% on room air. Admission Exam Per Admitting Provider General: Alert and oriented AOx3. HEENT: Normocephalic, moist oral mucosa, Cardio: hs S1S2, Regular rate and rhythm, tachy, Resp: on O2 2L NC, sats 94-95%, Lungs clear to auscultation b/l, no wheezes or rhonchi, GI: Soft and nontender, nondistended, bowel sounds active Skin: Warm, pink, dry, Psych: Mood-affect congruence. Extremities: Normal range of motion, 5/5 strength, normal sensory b/l, no edema Neuro: CN II-XII grossly intact, no focal deficits Principal Diagnosis Covid 19 Discharge Exam Constitutional WD/WN, vitals as above Eyes + anicteric sclerae ENMT external ear and nose normal, oropharynx normal Neck trachea midline, no thyromegaly Respiratory normal respiratory effort, lungs clear to auscultation Cardiovascular RRR, no murmur, no edema Musculoskeletal Head/Neck/Chest: normocephalic and head atraumatic Skin no rashes, warm and dry Psychiatric A+Ox3, euthymic affect Discharge Data Allergies Allergy/AdvReac Type Severity Reaction Status Date / Time bee venom protein (honey bee) Allergy Severe THROAT Verified 02/14/24 09:52 CLOSES/HIVES Iodinated Contrast Media Allergy Intermediate HIVES Verified 02/14/24 09:52 aspirin AdvReac Unknown CONTRAINDICATED Verified 02/14/24 09:52 WITH BLOOD THINNERS ibuprofen AdvReac Unknown CONTRAINDICATED Verified 02/14/24 09:52 WITH BLOOD THINNERS mushroom AdvReac Unknown Unknown Verified 02/14/24 09:52 pepper (genus Capsicum) AdvReac Unknown Unknown Verified 02/14/24 09:52 Consultations 03/08/24 19:46 ED Decision to Admit Stat Ordered Studies 03/08/24 17:37 CT head/brain wo con Stat Hospital Course (1) Acute respiratory failure with hypoxia: 74 yo F admitted on 03/08/24 with weakness, found to be covid 19 positive in ER. (1) COVID-19: - symtpoms started on 03/05/24 (only manifestation seemed to be weakness) - required minimal supplemental O2 on arrival (ie 2L via NC) --> breathing well on room air upon discharge - CXR normal (no evidence of superimposed PNA) - Dexamethasone + Azithromycin (3 day course completed) given while inpatient - admitting team did not start her on Remdesirvir or paxlovid although her renal function would allow for it -- she did not appear to be severely ill at any point during her hospital stay-- held off on using - Discussed waiting 90 days before she gets a covid 19 booster shot She was discharged directly home -- she ambulated around the room with a walker without issue on day of discharge. (2) Acute respiratory failure with hypoxia: Plan: - due to COVID infection - now resolved (3) A-fib: Plan: - Known hx of chronic afib - EKG on admission showing Sinus Tach - K and Mag both normal; TSH also wNL - anticoagulation: c/w Eliquis 5mg BID - Rate control: c/w Metoprolol succinate 37.5 OD (4) Tachycardia - HR running in low 100s to 115 - EKG showing sinus tach - anemia not implicated; TSH normal, electrolytes normal - pain in hip/area is being treated with acetaminophen and likely to be MSK in origin - suspect this is being induced by Dexamethasone - on metoprolol succinate 37.5mg daily for afib -- additional 12.5mg tartrate dose given this afternoon - remain on tele (5) Lumbar back pain: Plan: known hx of fracture. on analgesics. and TENs at home. Plan: c/w home analgesic meds -- ie gabapentin, Cymbalta and tramadol prn Total Time Total Time Spent Total Time Spent (In Minutes): 30 min Total Time Includes: Examination of the Patient, Discharge Planning and Medication Reconciliation Discharge Plan Discharge Items Patient Disposition: Home - Self-Care Reason For Visit: COVID+ AND HYPOXIA Discharge Diagnosis: Covid 19 Condition on Discharge: Good Activity: Resume your previous activity Non-emergency contact: Primary Care Provider Call non-emergency contact if: your symptoms worsen Follow-up/Referrals: Marianne Hurd MD [Primary Care Provider] - Diet: Regular Addtl Attending Provider Instructions: You were hospitalized at [facility] for weakness. On admission, you tested positive for covid 19. You were treated with steroids and an antibiotic and clinically improved while under our care. I recommend waiting 90 days until you get the new covid 19 booster, as your recent infection will provide natural immunity to the virus over the next 3 months. Pending Studies at Discharge: No Stand-Alone Forms: My [facility], Smoking Cessation Medications and DC Order Prescriptions: Continued olopatadine 0.1 % drops 1 drp ophthalmic (eye) DAILY Qty: 5 5RF Rx Instructions: one drop each eye daily in am. ondansetron 4 mg tablet,disintegrating 4 - 8 mg translingual BID PRN (Reason: nausea and vomiting) Qty: 30 0RF magnesium oxide 400 mg magnesium tablet 400 mg PO DAILY Qty: 30 1RF levalbuterol tartrate [Xopenex HFA] 45 mcg/actuation HFA aerosol inhaler See Rx Instructions inhalation .COMPLEX PRN (Reason: shortness of breath or wheezing) Qty: 15 2RF Rx Instructions: 1-2 INH 4-6 hrs PRN; nystatin 100,000 unit/gram cream 1 applic topical BID PRN (Reason: ABD FOLDS NEEDED) Qty: 30 5RF teriparatide [Forteo] 20 mcg/dose (600mcg/2.4mL) pen injector 20 mcg subcut DAILY Qty: 2.4 3RF levothyroxine 125 mcg tablet 125 mcg PO DAILYBB Qty: 90 1RF Eliquis 5 mg tablet 5 mg PO BID Qty: 60 5RF Rx Instructions: ONLY 30 DAYS AT A TIME. duloxetine 60 mg capsule,delayed release(DR/EC) 60 mg PO DAILY Qty: 90 3RF lorazepam 0.5 mg tablet 0.5 mg PO TID Qty: 90 0RF cholecalciferol (vitamin D3) 10 mcg (400 unit) tablet 10 mcg PO BID Qty: 60 2RF atorvastatin 80 mg tablet 80 mg PO HS Qty: 90 1RF cyclobenzaprine 5 mg tablet 5 mg PO TID PRN (Reason: muscle spasm) Qty: 30 0RF tramadol 50 mg tablet 50 mg PO Q6H PRN (Reason: pain) Qty: 20 0RF calcitonin (salmon) 200 unit/actuation spray,non-aerosol 1 spray intranasal (ALT) DAILY Qty: 3.7 2RF (DME) TENS units Device See Rx Instructions .Route Qty: 1 0RF Rx Instructions: As directed (DME) TENS unit and electrodes Combo Pack See Rx Instructions .Route Qty: 1 0RF Rx Instructions: As directed pantoprazole 40 mg tablet,delayed release (DR/EC) 40 mg PO QAM Qty: 90 3RF lidocaine [Salonpas (lidocaine)] 4 % adhesive patch,medicated 1 patch topical QID PRN (Reason: pain) Qty: 60 5RF gabapentin 400 mg capsule 400 mg PO BID Qty: 60 5RF fluticasone propionate 50 mcg/actuation spray,suspension 2 spray INTNAS DAILY PRN (Reason: allergies) Rx Instructions: administer into each nostril sennosides-docusate sodium [Senokot-S] 8.6-50 mg Tablet 1 tab PO HS Qty: 30 0RF polyethylene glycol 3350 [Miralax] 17 gram powder in packet 17 gm PO DAILY PRN (Reason: Constipation) Qty: 30 0RF ergocalciferol (vitamin D2) [Vitamin D2] 1,250 mcg (50,000 unit) capsule 1,250 mcg PO WK metoprolol succinate 25 mg tablet extended release 24 hr 37.5 mg PO HS omeprazole 40 mg capsule,delayed release(DR/EC) 40 mg PO QAM Tums 300 mg (750 mg) tablet,chewable 1 tab PO DAILY acetaminophen 500 mg Tablet 500 mg PO Q4 PRN (Reason: mild-moderate pain) benzonatate 100 mg capsule 100 - 200 mg PO TID PRN (Reason: Cough) Discharge Orders: Discharge Order (Routine); Ordered 03/10/24 Ordered By: Gerri Soto/Other Patient Handouts: COVID-19 Home Care Admission Data Admit Date/Time: 03/08/24 21:35 Attending Provider: Gerri Vital Admit Provider: Juan Moss Primary Care Provider: Marianne Hurd Other Providers: Pawan Grissom Other Interventions: Discharge Summary Assessment (RN) Last Done: 03/10/24 13:09
[2024-03-14] MEDS ORDERED: ERGOCALCIFEROL 1250 MCG (50,000 UNITS) CAP PO SCH (09:00)
== END 2024-03-10 15:41 | disposition home or self-care (01) ==
LOC: 2N 16:14 → ED 16:14 → SUATTDRO 21:35 → 2N 22:47 → 3N 03-09 22:39